=== PATIENT | female | born 1955 | race African-American/Black ===

== ENCOUNTER 2020-01-02 09:01 | Outpatient (REF) | payer OTHER, SELFPAY ==
[2020-01-02 11:55] LABS: Albumin Level 4.3 g/dL (3.5-5.0)
[2020-01-02 12:16] LABS: Vitamin D 25-OH Total 15.6 ng/mL (>30)
[2020-01-03 17:52] LABS: Calcium (PTHI) 11.2 mg/dL (8.6-10.4); PTHI 98 pg/mL (14-64)
[2020-01-06 00:27] LABS: VITAMIN D (1,25 OH) D3 55 pg/mL; Vit D (1,25-Dihydroxy) Total 67 pg/mL (18-72); Vitamin D (1,25 OH) D2 12 pg/mL
== END 2020-01-02 09:02 | disposition home or self-care (01) ==
LOC: HO.HMGCLDS 09:01
PROVIDERS: PCP Internal Medicine; Visit Provider Internal Medicine Endocrinology, Diabetes & Metabolism
DX: E21.3 Hyperparathyroidism, unspecified (principal)
CPT/HCPCS: 82040; 82306; 82310; 82652; 83970

== ENCOUNTER → 2020-01-11 08:18 | Outpatient (BNVA) | payer OTHER, SELFPAY | PROVIDERS: PCP Internal Medicine; Referring Provider Internal Medicine; Visit Provider Internal Medicine Endocrinology, Diabetes & Metabolism | DX: Z13.89 Encounter for screening for other disorder (principal) | CPT/HCPCS: 99212 ==

== ENCOUNTER 2020-01-19 12:47 | Outpatient (REF) | payer OTHER, SELFPAY ==
--- NOTE | 2020-01-19 12:55 | MM_ITS ---
EXAMINATION: BONE DENSITOMETRY CLINICAL INDICATION: Hyperparathyroidism, unspecified. COMPARISON: None (current study represents initial baseline exam). TECHNIQUE: Using a [employer] DXA System (software version: 13.1) manufactured by [employer], dual-energy x-ray absorptiometry was performed of the lumbar spine, left hip, and left forearm radius 33%. The images are of good technical quality. Summary results are attached. FINDINGS: AP SPINE L1-L4: BMD 0.996 g/cm2, Z-score -1.6, T-score -1.5, osteopenia. LEFT FEMUR, NECK: BMD 0.963 g/cm2, Z-score -0.6, T-score -0.5, normal. LEFT FEMUR, TOTAL: BMD 1.041 g/cm2, Z-score -0.2, T-score 0.3, normal. LEFT FOREARM RADIUS 33%: BMD 0.946 g/cm2, Z-score 1.2, T-score 0.8, normal. IDENTIFIED RISK FACTORS: Hyperparathyroidism, thiazide, menopause, hysterectomy, bilateral oophorectomy. HISTORY OF FRACTURE: None listed. MEDICATIONS: Multivitamin. MM/XR DEXA appendicular skeleton IMPRESSION: 1. DIAGNOSIS: Osteopenia based on the lowest T-score value of -1.5 in the lumbar spine applying World Health Organization criteria. 2. 10-YEAR FRACTURE RISK PREDICTION, FRAX: Major osteoporotic fracture (clinical spine, forearm, hip or shoulder) 3.0%. Hip fracture 0.1%. 3. Treatment Recommendations: NOF guidelines recommend consideration for treatment in postmenopausal women and men age 50 and older presenting with the following: -A hip or vertebral (clinical or morphometric) fracture. -T-score less than or equal to -2.5 at the femoral neck or spine after appropriate evaluation to exclude secondary causes. -Low bone mass at the hip or spine and a 10-year fracture probability by FRAX of greater than or equal to 3% for hip fracture or greater than or equal to 20% for major osteoporotic fracture based on the [place] adapted WHO algorithm. 4. Other Recommendations: All treatment decisions require clinical judgment and consideration of individual patient factors, including patient preferences, comorbidities, previous drug use, risk factors not captured in the FRAX model (e.g. frailty, falls, vitamin D deficiency, increased bone turnover, interval significant decline in bone density) and possible under or overestimation of fracture risk by FRAX. Additional medical evaluation for secondary cause of low bone mineral density may be appropriate. FUTURE SCAN RECOMMENDATION: People with diagnosed cases of osteoporosis or at high risk for fracture should have regular bone mineral density tests. For patients eligible for Medicare, routine testing is allowed once every 2 years. The testing frequency can be increased to one year for patients who have rapidly progressing disease, those who are receiving or discontinuing medical therapy to restore bone mass, or have additional risk factors.
== END 2020-01-19 12:48 | disposition home or self-care (01) ==
LOC: HO.MAMMO 12:47
PROVIDERS: PCP Internal Medicine; Visit Provider Internal Medicine Endocrinology, Diabetes & Metabolism
DX: E21.3 Hyperparathyroidism, unspecified (principal); Z79.899 Other long term (current) drug therapy; Z78.0 Asymptomatic menopausal state; Z90.722 Acquired absence of ovaries, bilateral; Z90.710 Acquired absence of both cervix and uterus
CPT/HCPCS: 77081

== ENCOUNTER → 2020-05-21 09:04 | Outpatient (BNVA) | payer OTHER, SELFPAY | PROVIDERS: PCP Internal Medicine; Visit Provider Internal Medicine Endocrinology, Diabetes & Metabolism ==

== ENCOUNTER 2020-05-29 08:55 | Outpatient (REF) | payer OTHER, SELFPAY ==
[2020-05-29 11:41] LABS: Alanine Aminotransferase 18 U/L (0-31); Albumin Level 4.2 g/dL (3.5-5.0); Alkaline Phosphatase 140 U/L (39-117); Anion Gap 13 (12-20); Aspartate Amino Transferase 15 U/L (5-31); Bilirubin Total 0.9 mg/dL (0.0-1.0); Blood Urea Nitrogen 14 mg/dL (9-16); Calcium 10.1 mg/dL (8.4-10.2); Carbon Dioxide 25 mmol/L (22-29); Chloride 105 mmol/L (96-108); Estimated Glomerular Filt Rate > 60; Glucose Fasting 99 mg/dL (60-99); Magnesium 2.2 mg/dL (1.6-2.6); Phosphorus 3.5 mg/dL (2.7-4.5); Potassium 4.2 mmol/L (3.3-5.1); Sodium 139 mmol/L (135-145); Total Protein 6.7 g/dL (6.5-8.0)
[2020-05-29 12:03] LABS: Vitamin D 25-OH Total 10.9 ng/mL (>30)
[2020-05-30 13:02] LABS: Calcium (PTHI) 10.4 mg/dL (8.6-10.4); PTHI 66 pg/mL (14-64)
[2020-05-30 15:06] LABS: Calcium, Ionized 5.7 mg/dL (4.8-5.6)
[2020-06-01 11:27] LABS: Alkaline Phosphatase Bone 25.1 mcg/L (5.6-29.0)
== END 2020-05-29 08:56 | disposition home or self-care (01) ==
LOC: HO.HMGCLDS 08:55
PROVIDERS: PCP Internal Medicine; Visit Provider Internal Medicine Endocrinology, Diabetes & Metabolism
DX: E21.3 Hyperparathyroidism, unspecified (principal)
CPT/HCPCS: 36415; 80053; 82306; 82330; 83735; 83970; 84075; 84100

== ENCOUNTER 2020-06-10 09:03 | Outpatient (REF) | payer OTHER, SELFPAY ==
--- NOTE | ~2020-06-10 | MM_ITS ---
EXAMINATION: MM DIAGNOSTIC DIGITAL BREAST TOMOSYNTHESIS, LEFT CLINICAL INFORMATION: Probable benign calcifications inner left breast for short interval six-month follow-up The lifetime risk of breast cancer based on the Tyrer-Cuzick Model is 6%. COMPARISON: Mammography: 11/03/2019 (diagnostic, BI-RADS 3); outside exam 08/24/2015 ([facility]). TECHNIQUE: Digital breast tomosynthesis is performed in both the craniocaudal and mediolateral oblique views along with computer-aided detection (CAD). Synthesized 2D images are generated from the tomosynthesis. FINDINGS: There are scattered areas of fibroglandular density (ACR BI-RADS breast composition Category b). Parenchymal pattern is similar to prior exams. There is no developing density or interval mass or architectural abnormality. Calcifications for follow-up left breast medial aspect of benign-appearing and stable from prior diagnostic study. There are also scattered regional calcifications central and upper outer left breast again seen. Results are provided to the patient at time of visit by the technologist. MM/MM tomosynthesis diagnostic LT IMPRESSION: No significant changes from prior diagnostic exam. ASSESSMENT: BI-RADS 3: Probably Benign RECOMMENDATION: Diagnostic mammography at time of annual bilateral mammography, due in 6 months. This patient's information was entered into a reminder system with a target due date for their next mammogram.
== END 2020-06-10 09:04 | disposition home or self-care (01) ==
LOC: HO.MAMMO 09:03
PROVIDERS: PCP Internal Medicine; Visit Provider Internal Medicine
DX: R92.1 Mammographic calcification found on diagnostic imaging of breast (principal)
CPT/HCPCS: 77061; 77065

== ENCOUNTER 2020-10-23 11:08 | Outpatient (REF) | payer OTHER, SELFPAY ==
[2020-10-23 13:48] LABS: MANUAL DIFF FLAG NO
[2020-10-23 13:58] LABS: Basophils Percent Auto 0.3 % (0-2); Eosinophils Absolute Auto 0.1 X10*3/uL (0.0-0.4); Eosinophils Percent Auto 1.6 % (0-4); Hematocrit 38.9 % (37-47); Imm Gran Abs Auto 0.03 X10*3/uL (0.00-0.03); Imm Gran Pct Auto 0.5 % (0.0-0.4); Lymphocytes Absolute Auto 2.6 X10*3/uL (1.2-4.9); Lymphocytes Percent Auto 41.4 % (20-40); Mean Corpuscular HGB Conc 33.4 g/dl (31.0-35.0); Mean Corpuscular Hemoglobin 31.8 pg (27.0-33.0); Mean Corpuscular Volume 95.1 fL (80-98); Mean Platelet Volume 9.8 fL (9.4-12.3); Monocytes Absolute Auto 0.6 X10*3/uL (0.1-1.2); Monocytes Percent Auto 8.9 % (2-11); Neutrophils Absolute Auto 2.9 X10*3/uL (2.0-8.3); Neutrophils Percent Auto 47.3 % (45-73); Platelet Count 279 X10*3/uL (160-400); Red Blood Count 4.09 X10*6/uL (4.20-5.50); Red Cell Distribution Width 13.3 % (11.0-16.0); White Blood Count 6.2 X10*3/uL (4.8-10.8)
[2020-10-23 14:52] LABS: Vitamin D 25-OH Total 17.8 ng/mL (>30)
[2020-10-23 14:54] LABS: Alanine Aminotransferase 29 U/L (0-31); Albumin Level 4.2 g/dL (3.5-5.0); Alkaline Phosphatase 130 U/L (39-117); Anion Gap 14 (12-20); Aspartate Amino Transferase 20 U/L (5-31); Blood Urea Nitrogen 14 mg/dL (9-16); Calcium 10.7 mg/dL (8.4-10.2); Carbon Dioxide 22 mmol/L (22-29); Chloride 109 mmol/L (96-108); Estimated Glomerular Filt Rate > 60; Glucose Fasting 110 mg/dL (60-99); Magnesium 2.1 mg/dL (1.6-2.6); Phosphorus 2.8 mg/dL (2.7-4.5); Potassium 4.1 mmol/L (3.3-5.1); Sodium 141 mmol/L (135-145)
[2020-10-24 07:51] LABS: LDL Cholesterol Direct 153 mg/dL (<100)
[2020-10-25 14:21] LABS: Calcium (PTHI) 10.3 mg/dL (8.6-10.4); PTHI 85 pg/mL (14-64)
[2020-10-26 10:22] LABS: Alkaline Phosphatase Bone 23.8 mcg/L (5.6-29.0)
== END 2020-10-23 11:09 | disposition home or self-care (01) ==
LOC: HO.HMGCLDS 11:08
PROVIDERS: Absent Provider Internal Medicine Endocrinology, Diabetes & Metabolism; PCP Internal Medicine; Visit Provider Internal Medicine
DX: Z00.01 Encounter for general adult medical examination with abnormal findings (principal); R10.13 Epigastric pain; F31.9 Bipolar disorder, unspecified; E66.09 Other obesity due to excess calories; E21.3 Hyperparathyroidism, unspecified; G47.10 Hypersomnia, unspecified
CPT/HCPCS: 36415; 80053; 82306; 83721; 83735; 83970; 84075; 84100; 84443; 85025

== ENCOUNTER 2020-12-26 12:51 | Outpatient (REF) | payer OTHER, SELFPAY ==
--- NOTE | ~2020-12-26 | MM_ITS ---
EXAMINATION: MM DIAGNOSTIC DIGITAL BREAST TOMOSYNTHESIS, BILATERAL CLINICAL INFORMATION: Due for yearly. Follow-up grouped calcifications in the left breast. The lifetime risk of breast cancer based on the Tyrer-Cuzick Model is 6%. COMPARISON: Mammography: 06/10/2020, 11/03/2019 (BI-RADS 3); outside mammography 08/24/2015, 08/11/2014 ([place]). TECHNIQUE: Digital breast tomosynthesis is performed in both the craniocaudal and mediolateral oblique views along with computer-aided detection (CAD). Synthesized 2D images are generated from the tomosynthesis. Additional magnification left CC x2 and magnification left LM x2 views are provided. FINDINGS: There are scattered areas of fibroglandular density (ACR BI-RADS breast composition Category b). Parenchymal pattern is similar to prior studies and borders on heterogeneously dense. There is no developing density or interval mass or architectural abnormality. Numerous bilateral round and some rim calcifications are again seen. The axilla and skin contours are unremarkable. The grouped mildly coarse calcifications medial left breast are similar to prior diagnostic exams and will be reassessed again at annual bilateral mammography, due in 12 months. Results are provided to the patient at time of visit by the technologist. MM/MM tomosynthesis diagnostic BI IMPRESSION: No significant changes from prior diagnostic exams. ASSESSMENT: BI-RADS 3: Probably Benign RECOMMENDATION: Diagnostic mammography at time of next annual exam, due in 12 months. This patient's information was entered into a reminder system with a target due date for their next mammogram.
== END 2020-12-26 12:52 | disposition home or self-care (01) ==
LOC: HO.MAMMO 12:51
PROVIDERS: Visit Provider Internal Medicine
DX: R92.1 Mammographic calcification found on diagnostic imaging of breast (principal)
CPT/HCPCS: 77062; 77066

== ENCOUNTER 2021-03-25 09:57 | Outpatient (REF) | payer OTHER, SELFPAY ==
--- NOTE | ~2021-03-25 | XR_ITS ---
EXAMINATION: XR CHEST CLINICAL INFORMATION: Hemoptysis. COMPARISON: None TECHNIQUE: 2 views of the chest were obtained. FINDINGS: No significant abnormality is noted involving the heart, lungs, mediastinum, bony thorax or soft tissues. XR/XR chest 2V IMPRESSION: Unremarkable chest examination.
== END 2021-03-25 09:58 | disposition home or self-care (01) ==
LOC: HO.HMGCX 09:57
PROVIDERS: PCP Internal Medicine; Visit Provider Internal Medicine
DX: R04.2 Hemoptysis (principal)
CPT/HCPCS: 71046

== ENCOUNTER → 2021-06-04 12:51 | Outpatient (BNVA) | payer OTHER, SELFPAY | PROVIDERS: PCP Internal Medicine; Visit Provider Internal Medicine Endocrinology, Diabetes & Metabolism | DX: E21.3 Hyperparathyroidism, unspecified (principal); E04.2 Nontoxic multinodular goiter | CPT/HCPCS: 99212 ==

== ENCOUNTER 2021-07-30 09:54 | Outpatient (REF) | payer OTHER, SELFPAY ==
--- NOTE | ~2021-07-30 | US_ITS ---
EXAMINATION: US RETROPERITONEAL LIMITED (RENAL ONLY) CLINICAL INFORMATION: Hyperparathyroidism. COMPARISON: None TECHNIQUE: Real-time imaging of the kidneys. FINDINGS: RIGHT KIDNEY: 10.9 x 5.6 x 5.9 cm (SAG x AP x TRV). The kidney is normal in size, contour, and echogenicity. Renal cortical thickness is normal. No calculi or focal parenchymal lesions. No hydronephrosis. LEFT KIDNEY: 10.6 x 5.3 x 5.5 cm (SAG x AP x TRV). The kidney is normal in size, contour, and echogenicity. Renal cortical thickness is normal. No renal calculi or hydronephrosis. There is simple cyst in the upper pole of left kidney measured 1.0 x 0.8 x 1.1 cm US/US renal BI IMPRESSION: Simple cyst in the upper pole of left kidney.
--- NOTE | ~2021-07-30 | US_ITS ---
EXAMINATION: US THYROID CLINICAL INFORMATION: Nontoxic multinodular goiter. COMPARISON: US thyroid 08/17/2019. US-guided thyroid biopsy 09/28/2019. TECHNIQUE: Linear transducer grayscale and color Doppler examination with attention to the region of the thyroid. FINDINGS: SIZE: Measurements of the thyroid lobes and nodules are given in sagittal, anteroposterior and transverse dimensions respectively. Right Thyroid Lobe: 5.1 x 2.0 x 2.2 cm, volume 11.9 mL. Previously 4.2 x 2.0 x 2.0 cm, volume 8.7 mL. Parenchyma: The gland echotexture is homogeneous. Thyroid vascularity is normal. Left Thyroid Lobe: 4.4 x 2.0 x 1.6 cm, volume 7.6 mL. Previously 3.7 x 1.7 x 1.5 cm, volume 4.9 mL. Parenchyma: The gland echotexture is homogeneous. Thyroid vascularity is normal. Isthmus: 0.6 cm in maximum AP dimension. Previously 0.5 cm. Estimated total number of nodules greater than or equal to 1 cm: 1. Hand Hardener nodules are described as follows: 1. Location: Right mid. Size: 0.6 x 0.5 x 0.3 cm, volume 0.1 mL. Previously: 0.4 x 0.3 x 0.3 cm, volume 0.02 mL. Nodule characteristics: Composition: Cystic(0). ACR TI-RADS total points: 0 ACR TI-RADS category: 1 Significant change in size (>/= 20% in 2 dimensions and minimal increase of 2 mm or 50% or greater increase in volume): None Change in features: None Change in ACR TI-RADS risk category: Not applicable 2. Location: Right mid. Size: 1.1 x 1.5 x 0.9 cm, volume 0.8 mL. Previously: 1.3 x 1.1 x 1.3 cm, volume 1.0 mL. Nodule characteristics: Composition: Solid/almost completely solid (2). Echogenicity: Hypoechoic (2). Shape: Not taller than wide (0). Margins: Smooth (0). Echogenic Foci: Macrocalcifications (1). ACR TI-RADS total points: 5 ACR TI-RADS category: 4 Significant change in size (>/= 20% in 2 dimensions and minimal increase of 2 mm or 50% or greater increase in volume): None Change in features: Yes Change in ACR TI-RADS risk category: Yes 3. Location: Isthmus. Size: 0.8 x 0.6 x 0.3 cm, volume 0.1 mL. Previously: 0.5 x 0.3 x 0.5 cm, volume 0.04 mL. Nodule characteristics: Composition: Solid (2). Echogenicity: Hypoechoic (2). Shape: Not taller than wide (0). Margins: Smooth (0). Echogenic Foci: None (0). ACR TI-RADS total points: 4 ACR TI-RADS category: 4 Significant change in size (>/= 20% in 2 dimensions and minimal increase of 2 mm or 50% or greater increase in volume): Yes Change in features: None Change in ACR TI-RADS risk category: Not applicable 4. Location: Left mid. Size: 0.5 x 0.6 x 0.3 cm, volume 0.1 mL. Previously: 0.3 x 0.3 x 0.4 cm, volume 0.02 mL. Nodule characteristics: Composition: Solid/almost completely solid (2). Echogenicity: Isoechoic (1). Shape: Not taller than wide (0). Margins: Smooth (0). Echogenic Foci: None (0). ACR TI-RADS total points: 3 ACR TI-RADS category: 3 Significant change in size (>/= 20% in 2 dimensions and minimal increase of 2 mm or 50% or greater increase in volume): Yes Change in features: None Change in ACR TI-RADS risk category: Not applicable 5. Location: Left inferior. Size: 0.6 x 0.5 x 0.3 cm, volume 0.1 mL. Previously: Not seen on the previous study. Nodule characteristics: Composition: Solid (2). Echogenicity: Hypoechoic (2). Shape: Not taller than wide (0). Margins: Smooth (0). Echogenic Foci: None (0). ACR TI-RADS total points: 4 ACR TI-RADS category: 4 NODES: No lymphadenopathy is seen in the tissue surrounding the thyroid gland. US/US thyroid IMPRESSION: Multinodular goiter the largest hypoechoic nodule on the right revealed new microcalcifications. ACR TI-RADS RECOMMENDATION REFERENCE: Ultrasound-guided fine-needle aspiration, followup ultrasound, no further follow up. * TR1 (0 point) and TR 2 (2 points): No FNA or follow up * TR3 (3 points): FNA if more than or equal to 2.5 cm in maximum dimension, followup ultrasound in 1, 3 and 5 years if 1.5 to 2.4 cm in maximum dimension. * TR4 (4-6 points): FNA if more than or equal to 1.5 cm in maximum dimension, followup ultrasound in 1, 2, 3 and 5 years if 1 to 1.4 cm in maximum dimension. * TR5 (more than or equal to 7 points): FNA if more than or equal to 1 cm in maximum dimension, followup ultrasound every year for 5 years if 0.5 to 0.9 cm in maximum dimension. * TR3, TR4 or TR5 nodules that are below the size threshold for follow up receive no follow up.
== END 2021-07-30 09:55 | disposition home or self-care (01) ==
LOC: HO.US 09:54
PROVIDERS: Visit Provider Internal Medicine Endocrinology, Diabetes & Metabolism
DX: E04.2 Nontoxic multinodular goiter (principal); E21.3 Hyperparathyroidism, unspecified
CPT/HCPCS: 76536; 76775

== ENCOUNTER 2021-11-05 10:26 | Outpatient (REF) | payer OTHER, SELFPAY ==
[2021-11-05 14:04] LABS: MANUAL DIFF FLAG NO
[2021-11-05 14:23] LABS: Basophils Percent Auto 0.5 % (0-2); Eosinophils Absolute Auto 0.2 X10*3/uL (0.0-0.4); Eosinophils Percent Auto 2.6 % (0-4); Hematocrit 39.8 % (37.0-47.0); Hemoglobin 13.3 g/dl (12.0-16.0); Imm Gran Abs Auto 0.02 X10*3/uL (0.00-0.03); Imm Gran Pct Auto 0.3 % (0.0-0.4); Lymphocytes Absolute Auto 2.8 X10*3/uL (1.2-4.9); Lymphocytes Percent Auto 46.9 % (20-40); Mean Corpuscular HGB Conc 33.4 g/dl (31.0-35.0); Mean Corpuscular Hemoglobin 31.5 pg (27.0-33.0); Mean Corpuscular Volume 94.3 fL (80.0-98.0); Mean Platelet Volume 10.2 fL (9.4-12.3); Monocytes Absolute Auto 0.4 X10*3/uL (0.1-1.2); Monocytes Percent Auto 7.5 % (2-11); Neutrophils Absolute Auto 2.5 x10*3/uL (2.0-8.3); Neutrophils Percent Auto 42.2 % (45-73); Platelet Count 257 X10*3/uL (160-400); Red Blood Count 4.22 X10*6/uL (4.20-5.50); Red Cell Distribution Width 13.4 % (11.0-16.0); White Blood Count 5.9 X10*3/uL (4.8-10.8)
[2021-11-05 14:26] LABS: Estimated Average Glucose 120 mg/dL; Hemoglobin A1c % 5.8 %
[2021-11-05 14:36] LABS: Alanine Aminotransferase 43 U/L (0-31); Alkaline Phosphatase 110 U/L (39-117); Anion Gap 12 (12-20); Aspartate Amino Transferase 36 U/L (5-31); Bilirubin Total 1.4 mg/dL (0.0-1.0); Blood Urea Nitrogen 12 mg/dL (9-16); Calcium 10.2 mg/dL (8.4-10.2); Carbon Dioxide 25 mmol/L (22-29); Chloride 108 mmol/L (96-108); Cholesterol 202 mg/dL; Estimated Glomerular Filt Rate 51; Glucose Fasting 115 mg/dL (60-99); HDL Cholesterol 43 mg/dL; LDL Cholesterol Calculated 138 mg/dl; Potassium 4.2 mmol/L (3.3-5.1); Sodium 141 mmol/L (135-145); Total Protein 6.7 g/dL (6.5-8.0); Triglycerides 105 mg/dL
[2021-11-05 14:51] LABS: TSH reflex Free T4 1.59 uIU/mL (0.32-4.0)
== END 2021-11-05 10:27 | disposition home or self-care (01) ==
LOC: HO.HMGCLDS 10:26
PROVIDERS: PCP Internal Medicine; Visit Provider Internal Medicine
DX: Z00.01 Encounter for general adult medical examination with abnormal findings (principal); E21.3 Hyperparathyroidism, unspecified; E66.09 Other obesity due to excess calories; F31.9 Bipolar disorder, unspecified; F99 Mental disorder, not otherwise specified; G47.10 Hypersomnia, unspecified; K21.9 Gastro-esophageal reflux disease without esophagitis; E04.2 Nontoxic multinodular goiter
CPT/HCPCS: 36415; 80053; 80061; 83036; 84443; 85025

== ENCOUNTER → 2021-11-14 11:21 | Outpatient (BNVA) | payer OTHER, SELFPAY | PROVIDERS: PCP Internal Medicine; Visit Provider Nurse Practitioner Family | DX: G47.10 Hypersomnia, unspecified (principal); R40.0 Somnolence; R06.83 Snoring; E66.9 Obesity, unspecified; Z68.38 Body mass index [BMI] 38.0-38.9, adult | CPT/HCPCS: 99202 ==

== ENCOUNTER → 2021-12-15 09:59 | Outpatient (REF) | payer OTHER, SELFPAY | LOC: HO.SL 09:59 | PROVIDERS: Visit Provider Nurse Practitioner Family | DX: Z13.89 Encounter for screening for other disorder (principal) ==

== ENCOUNTER 2022-01-01 14:25 | Outpatient (REF) | payer OTHER, SELFPAY ==
--- NOTE | ~2022-01-01 | MM_ITS ---
EXAMINATION: MM DIAGNOSTIC DIGITAL BREAST TOMOSYNTHESIS, BILATERAL CLINICAL INFORMATION: Due for yearly. Also follow-up probable benign calcifications posterior medial left breast. No known family history breast cancer. COMPARISON: Mammography: 12/26/2020, 06/10/2020, 11/03/2019 (diagnostic, BI-RADS 3), bilateral breast ultrasound 11/03/2019. TECHNIQUE: Digital breast tomosynthesis is performed in both the craniocaudal and mediolateral oblique views along with computer-aided detection (CAD). Synthesized 2D images are generated from the tomosynthesis. Additional views are obtained: Right MLO, magnification left CC x2, left magnification LM. FINDINGS: There are scattered areas of fibroglandular density (ACR BI-RADS breast composition Category b). Parenchymal pattern is similar to prior studies and there is no developing density or architectural abnormality. There are no abnormal calcifications from prior studies. Again, there are scattered bilateral punctate round calcifications in each breast. The grouped calcifications posterior medial left breast are stable to decreased from prior diagnostic exams and now considered to be benign. The axilla and skin contours are unremarkable. Results are provided to the patient at time of visit by the technologist. MM/MM tomosynthesis diagnostic BI IMPRESSION: -Calcifications left breast for follow-up are stable to decreased and now considered to be benign. -No mammographic evidence of malignancy. ASSESSMENT: BI-RADS 2: Benign RECOMMENDATION: Routine annual mammography screening. This patient's information was entered into a reminder system with a target due date for their next mammogram.
== END 2022-01-01 14:26 | disposition home or self-care (01) ==
LOC: HO.MAMMO 14:25
PROVIDERS: PCP Internal Medicine; Visit Provider Internal Medicine
DX: R92.1 Mammographic calcification found on diagnostic imaging of breast (principal)
CPT/HCPCS: 77062; 77066

== ENCOUNTER → 2022-01-15 10:52 | Outpatient (REF) | payer OTHER, SELFPAY | LOC: HO.SL 10:52 | PROVIDERS: PCP Internal Medicine; Visit Provider Nurse Practitioner Family | DX: G47.33 Obstructive sleep apnea (adult) (pediatric) (principal); E66.9 Obesity, unspecified; G47.10 Hypersomnia, unspecified; R06.83 Snoring; R40.0 Somnolence | CPT/HCPCS: 95806 ==

== ENCOUNTER 2022-01-21 10:00 | Outpatient (REF) | payer OTHER, SELFPAY ==
--- NOTE | ~2022-01-21 | MM_ITS ---
EXAMINATION: BONE DENSITOMETRY CLINICAL INDICATION: Hyperparathyroidism. COMPARISON: Baseline BD dated 01/19/2020. TECHNIQUE: Using a [employer] DXA System (software version: 13.1) manufactured by [employer], dual-energy x-ray absorptiometry was performed of the lumbar spine, left hip, and left forearm radius 33%. The images are of good technical quality. Summary results are attached. FINDINGS: AP SPINE L1-L4: Current: BMD 0.991 g/cm2, Z-score -1.6, T-score -1.6, osteopenia, 0.5% decrease from baseline (<5% change is not significant). Baseline: BMD 0.996 g/cm2. LEFT FEMUR, NECK: Current: BMD 0.974 g/cm2, Z-score -0.5, T-score -0.5, normal. Baseline: BMD 0.963 g/cm2. LEFT FEMUR, TOTAL: Current: BMD 1.053 g/cm2, Z-score -0.1, T-score 0.4, normal, 1.2% increase from baseline (<5% change is not significant). Baseline: BMD 1.041 g/cm2. LEFT FOREARM RADIUS 33%: BMD 0.962 g/cm2, Z-score 1.6, T-score 1.0, normal, 1.7% increase from baseline (<5% change is not significant). Baseline: BMD 0.946 g/cm2. IDENTIFIED RISK FACTORS: Menopause, hysterectomy, hyperparathyroid, bilateral oophorectomy, thiazide. HISTORY OF FRACTURE: None listed. MEDICATIONS: Multivitamin, vitamin D. MM/XR DEXA appendicular skeleton IMPRESSION: 1. DIAGNOSIS: Osteopenia based on the lowest T-score value of -1.6 in the lumbar spine applying World Health Organization criteria. 2. 10-YEAR FRACTURE RISK PREDICTION, FRAX: Major osteoporotic fracture (clinical spine, forearm, hip or shoulder) 3.0%. Hip fracture 0.1%. 3. Treatment Recommendations: NOF guidelines recommend consideration for treatment in postmenopausal women and men age 50 and older presenting with the following: -A hip or vertebral (clinical or morphometric) fracture. -T-score less than or equal to -2.5 at the femoral neck or spine after appropriate evaluation to exclude secondary causes. -Low bone mass at the hip or spine and a 10-year fracture probability by FRAX of greater than or equal to 3% for hip fracture or greater than or equal to 20% for major osteoporotic fracture based on the [place] adapted WHO algorithm. 4. Other Recommendations: All treatment decisions require clinical judgment and consideration of individual patient factors, including patient preferences, comorbidities, previous drug use, risk factors not captured in the FRAX model (e.g. frailty, falls, vitamin D deficiency, increased bone turnover, interval significant decline in bone density) and possible under or overestimation of fracture risk by FRAX. Additional medical evaluation for secondary cause of low bone mineral density may be appropriate. FUTURE SCAN RECOMMENDATION: People with diagnosed cases of osteoporosis or at high risk for fracture should have regular bone mineral density tests. For patients eligible for Medicare, routine testing is allowed once every 2 years. The testing frequency can be increased to one year for patients who have rapidly progressing disease, those who are receiving or discontinuing medical therapy to restore bone mass, or have additional risk factors.
== END 2022-01-21 10:01 | disposition home or self-care (01) ==
LOC: HO.MAMMO 10:00
PROVIDERS: Visit Provider Internal Medicine
DX: Z13.820 Encounter for screening for osteoporosis (principal); M85.80 Other specified disorders of bone density and structure, unspecified site; E21.3 Hyperparathyroidism, unspecified; Z78.0 Asymptomatic menopausal state
CPT/HCPCS: 77080; 77081

== ENCOUNTER → 2022-02-12 09:34 | Outpatient (BNVA) | payer OTHER, SELFPAY | PROVIDERS: PCP Internal Medicine; Visit Provider Nurse Practitioner Family | DX: R40.0 Somnolence (principal); E66.09 Other obesity due to excess calories; G47.33 Obstructive sleep apnea (adult) (pediatric) | CPT/HCPCS: 99212 ==

== ENCOUNTER 2022-03-04 12:33 | Outpatient (REF) | payer OTHER, SELFPAY ==
[2022-03-04 14:56] LABS: Vitamin D 25-OH Total 21.9 ng/mL (>30)
[2022-03-05 14:13] LABS: Calcium (PTHI) 10.9 mg/dL (8.6-10.4); PTHI 84 pg/mL (16-77)
== END 2022-03-04 12:34 | disposition home or self-care (01) ==
LOC: HO.10HDL 12:33
PROVIDERS: Visit Provider Internal Medicine Endocrinology, Diabetes & Metabolism
DX: E21.3 Hyperparathyroidism, unspecified (principal); E04.2 Nontoxic multinodular goiter
CPT/HCPCS: 36415; 82306; 83970; 99212

== ENCOUNTER → 2022-04-02 09:12 | Outpatient (BNVA) | payer OTHER, SELFPAY | PROVIDERS: PCP Internal Medicine; Visit Provider Nurse Practitioner Family | DX: G47.33 Obstructive sleep apnea (adult) (pediatric) (principal) | CPT/HCPCS: 99212 ==

== ENCOUNTER 2022-05-07 09:35 | Outpatient (REF) | payer OTHER, SELFPAY ==
--- NOTE | 2022-05-07 09:57 | P.BOP_ITS ---
Brief Operative Note Date of Service: 05/07/22 Pre-op diagnosis: Multinodular Thyroid Procedure: EXAMINATION: US THYROID CLINICAL INFORMATION: Multinodular Thyroid COMPARISON: Prior TECHNIQUE: Linear transducer johnson-scale and color Doppler examination with attention to the region of the thyroid. FINDINGS: SIZE: Measurements of the thyroid lobes and nodules are given in sagittal, anteroposterior and transverse dimensions respectively. Right Thyroid Lobe: 5.3 x 2.2 x 2.1 cm, volume 12.8 mL. Parenchyma: The gland echotexture is heterogenous. Thyroid vascularity is normal. Left Thyroid Lobe: 4.1 x 1.7 x 1.7 cm, volume 6.2 mL. Parenchyma: The gland echotexture is heterogenous. Thyroid vascularity is normal. Isthmus: 0.4 cm in maximum AP dimension. Bilaterally there are scattered anechoic cystic appearing nodules. There is a small mixed cystic nodule measuring less than 0.5 cm in the L mid pole laterally. What was read as a RMP 1.3 cm nodule is a pseudnodule, not a true nodule. NODES: No lymph nodes were assessed during today's exam. Surgeon: Caterina Otto, DO Was an Operations Manager Assistant used for this Procedure?: No Estimated blood loss (mL): 0
== END 2022-05-07 09:36 | disposition home or self-care (01) ==
LOC: HO.US 09:35
PROVIDERS: PCP Internal Medicine; Visit Provider Internal Medicine Endocrinology, Diabetes & Metabolism
DX: E04.2 Nontoxic multinodular goiter (principal)
CPT/HCPCS: 76536

== ENCOUNTER → 2022-07-31 08:47 | Outpatient (BNVA) | payer OTHER, SELFPAY | PROVIDERS: PCP Internal Medicine; Visit Provider Nurse Practitioner Family | DX: G47.33 Obstructive sleep apnea (adult) (pediatric) (principal) | CPT/HCPCS: 99212 ==

== ENCOUNTER 2022-11-04 09:55 | Outpatient (AMB) | payer OTHER, SELFPAY ==
[2022-11-04 10:11] VITALS: BP 128/82; PULSE 77; O2SAT 98; BMI 38.2
--- NOTE | 2022-11-04 10:11 | A.OFFPC_ITS ---
Vital Signs 11/04/22 10:11 Height 5 ft 5 in Weight 229 lb 6 oz BMI 38.2 BP 128/82 Blood Pressure Location Rt brachial Position Sitting Pulse 77 Pulse Source Pulse Oximeter Pulse Oximetry (%) 98 Oxygen Delivery Method Room Air Intake Visit Reasons: annual PE Allergies citalopram Allergy (Unknown, Verified 11/04/22 10:12) Unknown ibuprofen Allergy (Unknown, Verified 11/04/22 10:12) unknown loratadine Allergy (Unknown, Verified 11/04/22 10:12) unknown Medication List - Last Reconciled 11/04/22 by Jose Manuel Sarmiento MD aripiprazole 20 mg PO DAILY [Blood pressure monitor large cuff] bupropion HCl 200 mg PO QAM hydroxyzine HCl 25 mg PO TID PRN Tobacco use date assessed: 11/04/22 Fall risk assessment: No Falls in past year Last assessed Fall Risk: 11/04/22 Dental Screening Dental Screen Date: 11/04/22 Did you have a dental visit in the last 12 months?: Yes Did you have a dental problem in the last 6 months where you did not have access to dental care?: No Was dental information given to patient?: No HPI annual PE HPI Details Patient is 67-year-old female came in today for physical examination. Mammogram appointment in December Colonoscopy appointment is coming this month on She also have a endocrinology appointment coming up this month. For the management of hyperparathyroidism Complaining of irrigated come for the past 1 month with postnasal drip Patient was advised to start taking long-acting antihistamine [id number] and see if that improves the symptoms. Patient have a psychiatric illness which is being managed through Psychiatry. History of hysterectomy secondary to fibroids Patient have history of appendix cancer and goes for follow-up every 6 months with Oncology. BMI is elevated patient has difficulty losing weight She has appointment with the Neurology coming up in January to be evaluated for sleep apnea. Follow-up next year for physical examination Labs to be done today FORMERLY [facility], [facility] Medical History Bipolar disorder Hyperparathyroidism Non-toxic multinodular goiter Obesity Vitamin D deficiency Surgical History History of section History of colectomy History of hysterectomy Hx of cholecystectomy Family History Mother HTN (hypertension) Diabetes mellitus Cancer Family/Other HTN (hypertension) Social History Household Members: Family Household Members Other:: daughter, son Housing: House Alcohol intake: never Patient Tobacco Use Status: Never used Tobacco e-Cigarette/Vaping Use: Never Used Second Hand Smoke Exposure: No service: No Current occupational status: disabled Cognitive needs: No Hearing needs: No Vision needs: Yes Questionnaire PHQ-9 Over the last 2 weeks, how often have you been bothered by any of the following problems? 1. Little interest or pleasure in doing things: not at all 2. Feeling down, depressed, or hopeless: not at all 3. Trouble falling or staying asleep, or sleeping too much: not at all 4. Feeling tired or having little energy: not at all 5. Poor appetite or overeating: not at all 6. Feeling bad about yourself - or that you are a failure or have let yourself or your family down: not at all 7. Trouble concentrating on things, such as reading the newspaper or watching television: not at all 8. Moving or speaking so slowly that other people could have noticed. Or the opposite - being so fidgety or restless that you have been moving around a lot more than usual: not at all 9. Thoughts that you would be better off or of hurting yourself in some way: not at all Total score: 0 Depression Screening Interpretation: Negative 78801 - PHQ-9 Billing: Yes Source: Developed by Drs. Bala Farah, Dawn Chavarria, Mihai Mendiola and colleagues, with an educational siomara from [employer]. Thrive Questionnaire Date Thrive assessed: 11/04/22 I am a: Patient What is your living situation today?: I have a steady place to live Within the past 12 months, did the food you bought not last and you didn't have the money to get more?: Sometimes True Within the past 12 months, did you worry whether your food would run out before you got money to buy more?: Sometimes True Do you have trouble paying for medicines?: No Do you have trouble getting transportation to medical appointments?: No Do you have trouble paying your heating and electricity bill?: No Do you have trouble taking care of your child, family member or friend?: No Do you have trouble with day-to-day activities such as bathing, preparing meals, shopping, managing finances, etc.?: No Are you currently unemployed and looking for a job?: No Are you interested in more education?: No Currently or been in a relationship where the following occur: no concerns reported AUDIT C Alcohol Use Questionnaire (AUDIT-C) 1. How often do you have a drink containing alcohol?: Never 3. How often do you have six or more drinks on one occasion?: Never Total Score: 0 Score Reviewed/Action Taken: Yes GUY-7 AMB Questionnaire GUY-7 Date GUY - 7 assessed: 11/04/22 Feeling nervous, anxious, or on edge: 0 = Not at all Not being able to stop or control worryin = Not at all Worrying too much about different things: 0 = Not at all Trouble relaxin = Not at all Being so restless that it is hard to sit still: 0 = Not at all Becoming easily annoyed or irritable: 0 = Not at all Feeling afraid as if something awful might happen: 0 = Not at all Total GUY-7 score (0-4 normal; 5-9 mild; 10-14 moderate; 15-21 severe): 0 Source: Developed by Drs. Bala Farah, Dawn Chavarria, Mihai Mendiola and colleagues, with an educational siomara from [employer]. GUY-7 Assessment Billing GUY-7 Assessment Tool: GUY-7 Assessment 34940 Review of Systems Const Denies chills, Denies fever(s) and Denies headache(s) Eyes Denies blurry vision ENT Denies headache(s), Denies nasal discharge, Denies nasal obstruction, Denies odynophagia and Denies sinus pain Card Denies chest pain at rest and Denies chest pain with activity Resp Denies cough and Denies hemoptysis GI Denies diarrhea, Denies odynophagia, Denies vomiting and Denies hematemesis Reports as per HPI Musc Denies abnormal gait Skin/Breast Reports as per HPI Neuro Denies Neuro-related abnormal movements, Denies Abnormal speech present, Denies abnormal gait, Denies headache(s) and Denies Sensory deficit (Neuro) Psych Denies mood swings and Denies paranoia Endo Reports as per HPI Ashish/Lymph Reports as per HPI Aller/Immun Reports as per HPI Physical exam (Primary Care) Vital Signs: Last Vital Signs Pulse 77 11/04/22 10:11 BP 128/82 11/04/22 10:11 Pulse Ox 98 11/04/22 10:11 Oxygen Delivery Method Room Air 11/04/22 10:11 BMI result Body Mass Index 38.2 Tobacco/Smoking Status: Tobacco use Status Tobacco use date assessed 11/04/22 11/04/22 10:13 Patient Tobacco Use Status Never used Tobacco 11/04/22 10:13 e-Cigarette/Vaping Use Never Used 11/04/22 10:13 PHQ-9: PHQ-9 Score PHQ-9: Total score 0 11/04/22 10:52 Depression Screening Interpretation: Negative Thrive Assessment: Date of Thrive Assessment Date Thrive assessed 11/04/22 11/04/22 10:52 Currently or been in a relationship where the following occur: no concerns reported Const General: cooperative, comfortable and no acute distress Orientation/consciousness: patient oriented x3 HENMT Head: Yes normocephalic and Yes atraumatic Eyes General: appearance normal, both eyes and all related structures Pupils: Equal, round and reactive pupils present EOM: EOMs intact bilaterally Neck Neck: Yes supple and No lymphadenopathy Thyroid: Thyroid normal Lymphatic: no lymphadenopathy noted Chest Breast/axilla palpation: normal palpation of the breasts Resp Effort & Inspection: normal respiratory effort and able to speak in complete sentences Auscultation: clear to auscultation bilaterally Cardio Heart sounds: S1 normal heart sound present and S2 normal heart sound present GI Palpation (GI): Soft to palpation and nontender Auscultation: normal bowel sounds General: Yes no CVA tenderness Back/Spine/Pelvis Back: no CVA tenderness Skin General skin exam: elasticity normal and turgor normal Neuro General: patient oriented x3 and gait normal Cranial nerves: Yes Equal, round and reactive pupils present Speech: No Abnormal speech present Sensory Exam: No Sensory deficit (Neuro) Coordination: tandem gait normal and Romberg test negative Extrem General: Yes normal exam except as noted and No edema Assessment and Plan Assessment & Plan (1) Encounter for general adult medical examination with abnormal findings: Code(s): Z00.01 - Encounter for general adult medical examination with abnormal findings (2) Obesity due to excess calories: Code(s): E66.09 - Other obesity due to excess calories Qualifiers: Obesity classification: adult class 2 (BMI 35 - 39.9) Serious obesity comorbidity presence: without serious comorbidity Body mass index: BMI 38.0- 38.9 Qualified Code(s): E66.09 - Other obesity due to excess calories; Z68.38 - Body mass index [BMI] 38.0-38.9, adult (3) Vitamin D deficiency: Code(s): E55.9 - Vitamin D deficiency, unspecified (4) Bipolar disorder: Code(s): F31.9 - Bipolar disorder, unspecified Qualifiers: Active/Remission status: in full remission Most recent bipolar episode type: mixed Qualified Code(s): F31.78 - Bipolar disorder, in full remission, most recent episode mixed (5) Hyperparathyroidism: Code(s): E21.3 - Hyperparathyroidism, unspecified (6) Non-toxic multinodular goiter: Code(s): E04.2 - Nontoxic multinodular goiter (7) Acid reflux: Code(s): K21.9 - Gastro-esophageal reflux disease without esophagitis Qualifiers: Esophagitis presence: without esophagitis Qualified Code(s): K21.9 - Gastro-esophageal reflux disease without esophagitis (8) Psychiatric illness: Code(s): F99 - Mental disorder, not otherwise specified (9) KEMAL (obstructive sleep apnea): Comment: Mild degree of sleep apnea. The AHI was 9/hr and oxygen helen was 87%. Code(s): G47.33 - Obstructive sleep apnea (adult) (pediatric) (10) Excessive sleepiness: Code(s): G47.10 - Hypersomnia, unspecified Plan Patient is 67-year-old female came in today for physical examination. Mammogram appointment in December Colonoscopy appointment is coming this month on 19 She also have a endocrinology appointment coming up this month. For the m anagement of hyperparathyroidism Complaining of irrigated come for the past 1 month with postnasal drip Patient was advised to start taking long-acting antihistamine [id number] and see if that improves the symptoms. Patient have a psychiatric illness which is being managed through Psychiatry. History of hysterectomy secondary to fibroids Patient have history of appendix cancer and goes for follow-up every 6 months with Oncology. BMI is elevated patient has difficulty losing weight She has appointment with the Neurology coming up in January to be evaluated for sleep apnea. Follow-up next year for physical examination Labs to be done today Orders: Orders Comprehensive Met. Panel Today E04.2 - Nontoxic multinodular goiter, E21.3 - Hyperparathyroidism, unspecified, E55.9 - Vitamin D deficiency, unspecified, E66.09 - Other obesity due to excess calories, F31.9 - Bipolar disorder, unspecified, F99 - Mental disorder, not otherwise specified, G47.33 - Obstructive sleep apnea (adult) (pediatric), K21.9 - Gastro-esophageal reflux disease without esophagitis, Z00.01 - Encounter for general adult medical examination with abnormal findings LDL Cholesterol Direct Today E04.2 - Nontoxic multinodular goiter, E21.3 - Hyperparathyroidism, unspecified, E55.9 - Vitamin D deficiency, unspecified, E66.09 - Other obesity due to excess calories, F31.9 - Bipolar disorder, unspecified, F99 - Mental disorder, not otherwise specified, G47.33 - Obstructive sleep apnea (adult) (pediatric), K21.9 - Gastro-esophageal reflux disease without esophagitis, Z00.01 - Encounter for general adult medical examination with abnormal findings TSH reflex Free T4 Today E04.2 - Nontoxic multinodular goiter, E21.3 - Hyperparathyroidism, unspecified, E55.9 - Vitamin D deficiency, unspecified, E66.09 - Other obesity due to excess calories, F31.9 - Bipolar disorder, unspecified, F99 - Mental disorder, not otherwise specified, G47.33 - Obstructive sleep apnea (adult) (pediatric), K21.9 - Gastro-esophageal reflux disease without esophagitis, Z00.01 - Encounter for general adult medical examination with abnormal findings Vitamin D 25-OH (D2 and D3) Today E04.2 - Nontoxic multinodular goiter, E21.3 - Hyperparathyroidism, unspecified, E55.9 - Vitamin D deficiency, unspecified, E66.09 - Other obesity due to excess calories, F31.9 - Bipolar disorder, unspecified, F99 - Mental disorder, not otherwise specified, G47.33 - Obstructive sleep apnea (adult) (pediatric), K21.9 - Gastro-esophageal reflux disease without esophagitis, Z00.01 - Encounter for general adult medical examination with abnormal findings Complete Blood Count Auto Diff Today E04.2 - Nontoxic multinodular goiter, E21.3 - Hyperparathyroidism, unspecified, E55.9 - Vitamin D deficiency, unspecified, E66.09 - Other obesity due to excess calories, F31.9 - Bipolar disorder, unspecified, F99 - Mental disorder, not otherwise specified, G47.33 - Obstructive sleep apnea (adult) (pediatric), K21.9 - Gastro-esophageal reflux disease without esophagitis, Z00.01 - Encounter for general adult medical examination with abnormal findings Coding Level of Care Code Est Pt Prev Care >65y(32285) Diagnoses Encounter for general adult medical examination with abnormal findings Z00.01 Obesity due to excess calories E66.09; Z68.38 Obesity classification: adult class 2 (BMI 35 - 39.9) Serious obesity comorbidity presence: without serious comorbidity Body mass index: BMI 38.0-38.9 Vitamin D deficiency E55.9 Bipolar disorder F31.78 Active/Remission status: in full remission Most recent bipolar episode type: mixed Hyperparathyroidism E21.3 Non-toxic multinodular goiter E04.2 Acid reflux K21.9 Esophagitis presence: without esophagitis Psychiatric illness F99 KEMAL (obstructive sleep apnea) G47.33 Excessive sleepiness G47.10 Additional Codes GUY-7 Assessment Billing - GUY-7 Assessment Tool: GUY-7 Assessment 59152 ([id number])
== END 2022-11-04 10:57 | disposition home or self-care (01) ==
PROVIDERS: Visit Provider Internal Medicine
DX: Z00.01 Encounter for general adult medical examination with abnormal findings (principal); E66.09 Other obesity due to excess calories; Z68.38 Body mass index [BMI] 38.0-38.9, adult; E55.9 Vitamin D deficiency, unspecified; F31.78 Bipolar disorder, in full remission, most recent episode mixed; E21.3 Hyperparathyroidism, unspecified; E04.2 Nontoxic multinodular goiter; K21.9 Gastro-esophageal reflux disease without esophagitis; F99 Mental disorder, not otherwise specified; G47.33 Obstructive sleep apnea (adult) (pediatric); G47.10 Hypersomnia, unspecified
CPT/HCPCS: 99397

== ENCOUNTER 2022-11-04 10:53 | Outpatient (REF) | payer OTHER, SELFPAY ==
[2022-11-04 13:17] LABS: MANUAL DIFF FLAG NO
[2022-11-04 13:31] LABS: Basophils Percent Auto 0.5 % (0-2); Eosinophils Absolute Auto 0.1 X10*3/uL (0.0-0.4); Eosinophils Percent Auto 1.8 % (0-4); Hematocrit 42.6 % (37.0-47.0); Hemoglobin 13.9 g/dl (12.0-16.0); Imm Gran Abs Auto 0.03 X10*3/uL (0.00-0.03); Imm Gran Pct Auto 0.4 % (0.0-0.4); Lymphocytes Absolute Auto 3.9 X10*3/uL (1.2-4.9); Lymphocytes Percent Auto 50.6 % (20-40); Mean Corpuscular HGB Conc 32.6 g/dl (31.0-35.0); Mean Corpuscular Hemoglobin 31.8 pg (27.0-33.0); Mean Corpuscular Volume 97.5 fL (80.0-98.0); Mean Platelet Volume 10.3 fL (9.4-12.3); Monocytes Absolute Auto 0.6 X10*3/uL (0.1-1.2); Monocytes Percent Auto 7.3 % (2-11); Neutrophils Percent Auto 39.4 % (45-73); Platelet Count 280 X10*3/uL (160-400); Red Blood Count 4.37 X10*6/uL (4.20-5.50); Red Cell Distribution Width 13.4 % (11.0-16.0); White Blood Count 7.7 X10*3/uL (4.8-10.8)
[2022-11-04 13:54] LABS: Alanine Aminotransferase 30 U/L (0-31); Albumin Level 4.4 g/dL (3.5-5.0); Alkaline Phosphatase 119 U/L (39-117); Anion Gap 10 (12-20); Aspartate Amino Transferase 25 U/L (5-31); Bilirubin Total 1.5 mg/dL (0.0-1.0); Blood Urea Nitrogen 16 mg/dL (9-16); Calcium 11.6 mg/dL (8.4-10.2); Carbon Dioxide 26 mmol/L (22-29); Chloride 109 mmol/L (96-108); Estimated Glomerular Filt Rate 49; Glucose Random 102 mg/dL (60-115); Potassium 4.3 mmol/L (3.3-5.1); Sodium 141 mmol/L (135-145); Total Protein 7.3 g/dL (6.5-8.0)
[2022-11-04 13:58] LABS: TSH reflex Free T4 2.31 uIU/mL (0.32-4.0)
[2022-11-05 22:48] LABS: LDL Cholesterol Direct 141 mg/dL (<100)
[2022-11-08 14:49] LABS: Vitamin D 25-OH, D2 <4 ng/mL; Vitamin D 25-OH, D3 24 ng/mL; Vitamin D 25-OH, Total 24 ng/mL (30-100)
== END 2022-11-04 10:54 | disposition home or self-care (01) ==
LOC: HO.HMGCLDS 10:53
PROVIDERS: PCP Internal Medicine; Visit Provider Internal Medicine
DX: Z00.01 Encounter for general adult medical examination with abnormal findings (principal); E04.2 Nontoxic multinodular goiter; E21.3 Hyperparathyroidism, unspecified; E55.9 Vitamin D deficiency, unspecified; E66.09 Other obesity due to excess calories; F31.9 Bipolar disorder, unspecified; G47.33 Obstructive sleep apnea (adult) (pediatric); K21.9 Gastro-esophageal reflux disease without esophagitis
CPT/HCPCS: 36415; 80053; 82306; 83721; 84443; 85025

== ENCOUNTER 2022-11-11 12:26 | Outpatient (AMB) | payer OTHER, SELFPAY ==
--- NOTE | 2022-11-11 12:41 | A.OFFVIS_ITS ---
Intake Vital Signs 11/11/22 12:47 Weight 231 lb 4.238 oz BP 118/88 Blood Pressure Location Lt brachial Position Sitting Pulse 82 Pulse Source Pulse Oximeter Intake Visit Reasons: F/U hyperparathyroidism and MNG Intake Note: Patient present for Hyperparathyroidism and MNG follow up visit. As[employer]er [employer] Top Required: No Accompanied by: Self / Same As Patient Allergies citalopram Allergy (Unknown, Verified 11/11/22 12:50) Unknown ibuprofen Allergy (Unknown, Verified 11/11/22 12:50) unknown loratadine Allergy (Unknown, Verified 11/11/22 12:50) unknown Medication List - Last Reconciled 11/11/22 by Bala Solis MD aripiprazole 20 mg PO DAILY [Blood pressure monitor large cuff] bupropion HCl 200 mg PO QAM hydroxyzine HCl 25 mg PO TID PRN HPI HPI Comments History of Present Illness Details 67-year-old female , here for hyperparathyroidism adn MNG . Sh She denies constipation, she denies nocturia, polyuria and polydipsia. DEXA bone density showed osteopenia in 2019 and 2021 She denies prior fractures, denies GERD, she had family history of bone cancer or bone metastasis in her mother. Not clear if she did have is osteoporosis or not. She denies nephrolithiasis, denies steroids used, never smoker, denies anti seizures medications. She was on lithium twice a day since January 2019 until April 2019. This medication was stopped due to polyuria and polydipsia. 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 She denies History of head or neck irradiation. She denies history of osteoporosis herself but she has never been screened. She had Benign FNA of right mid pole nodule on 09/28/2019 consistent with benign follicular nodule.. Repeat ultrasound shows possible pseudo nodule andFNA was not performed 04/07/2019 Calcium 10.7 mg/dL Albumin 4.2 g per dL Alkaline phosphatase 123 units/liter TSH 1.35 mIU/mL Creatinine 0.8 mg per dL GFR more than 60 mL/minute. 04/14/2019 PTH 79 pg/mL Alkaline phosphatase bone 14.5 micrograms/liter Calcium 10.5 mg/dL. 04/13/19 Calcium 10.7 mg per dL 04/20/2019 Calcium 10.8 mg/dL/11.1 mg/dL PTH 69 pg per mL. Her daughter has history of nontoxic multinodular goiter. 08/17/2019 US Thyroid. Right Thyroid Lobe: 4.2 x 2.0 x 2.0 cm, volume 8.7 mL. Parenchyma: The gland echotexture is homogeneous. Thyroid vascularity is normal. Left Thyroid Lobe: 3.7 x 1.7 x 1.5 cm, volume 4.9 mL. Parenchyma: The gland echotexture is homogeneous. Thyroid vascularity is normal. Isthmus: 0.5 cm in maximum AP dimension. RIGHT THYROID LOBE: There are greater than 4 nodules seen. 1. Location: Middle. Size: 0.4 x 0.3 x 0.3 cm. Nodule characteristics: Hypoechoic, smoothly marginated with no intranodular flow, likely a complex cyst. 2. Location: Middle. Size: 1.3 x 1.1 x 1.3 cm. Nodule characteristics: Hypoechoic, smoothly marginated with echogenic calcifications and peripheral intranodular flow. 3. Location: Middle. Size: 0.3 x 0.3 x 0.3 cm. Nodule characteristics: Hypoechoic, smoothly marginated with no intranodular flow, likely complex cyst. 4. Location: Inferior. Size: 0.3 x 0.3 x 0.3 cm. Nodule characteristics: Hypoechoic, smoothly marginated with no intranodular flow. ISTHMUS: There is 1 nodule seen. 1. Location: Inferior. Size: 0.5 x 0.3 x 0.5 cm. Nodule characteristics: Hypoechoic, smoothly marginated with no intranodular flow. LEFT THYROID LOBE: There are 4 nodules seen. 1. Location: Middle. Size: 0.3 x 0.2 x 0.2 cm. Nodule characteristics: Hypoechoic, smoothly marginated with no intranodular flow. 2. Location: Middle. Size: 0.3 x 0.3 x 0.4 cm. Nodule characteristics: Isoechoic, smoothly marginated with no intranodular flow. 3. Location: Inferior. Size: 0.4 x 0.2 x 0.3 cm. Nodule characteristics: Hypoechoic, smoothly marginated with no intranodular flow. 4. Location: Inferior. Size: 0.4 x 0.2 x 0.2 cm. Nodule characteristics: Isoechoic, smoothly marginated with no intranodular flow. NODES: No lymphadenopathy is seen in the tissue surrounding the thyroid gland. 01/19/2020 FINDINGS: AP SPINE L1-L4: BMD 0.996 g/cm2, Z-score -1.6, T-score -1.5, osteopenia. LEFT FEMUR, NECK: BMD 0.963 g/cm2, Z-score -0.6, T-score -0.5, normal. LEFT FEMUR, TOTAL: BMD 1.041 g/cm2, Z-score -0.2, T-score 0.3, normal. LEFT FOREARM RADIUS 33%: BMD 0.946 g/cm2, Z-score 1.2, T-score 0.8, normal. Laboratory Tests 04/20/19 05/04/19 05/04/19 08:20 09:48 09:48 BUN Creatinine Est GFR (Non-Af Am er) Calcium Phosphorus Magnesium Alkaline Phosphata se Albumin 25-OH Vitamin D To cassandra Vit D 1,25-Dihyd T otal 1,25 Dihydroxy Vit D 1,25 Dihydroxy Vit D2 1,25 Dihydroxy Vit D3 Free T4 0.83 TSH 3rd Generation 1.60 PTH Intact Calcium (PTH Intac t) Ur 24 Hour Volume Ur Creatinine mg/d L Ur Creatinine 24 H our Ur Calcium 24 Hr Calcium/Creat 24 H r Bone Specific Alk Phos 16.7 Thyroglobulin Anti body <1 Thyroid Peroxidase Ab <1 05/08/19 05/08/19 08/29/19 08:00 08:00 08:28 BUN Creatinine Est GFR (Non-Af Am er) Calcium Phosphorus 3.0 Magnesium 2.1 Alkaline Phosphata se Albumin 25-OH Vitamin D To cassandra Vit D 1,25-Dihyd T otal 1,25 Dihydroxy Vit D 1,25 Dihydroxy Vit D2 1,25 Dihydroxy Vit D3 Free T4 TSH 3rd Generation PTH Intact Calcium (PTH Intac t) Ur 24 Hour Volume 800 Ur Creatinine mg/d L 117.18 Ur Creatinine 24 H our 0.94 Ur Calcium 24 Hr 153 Calcium/Creat 24 H r 163 Bone Specific Alk Phos Thyroglobulin Anti body Thyroid Peroxidase Ab 10/09/19 10/09/19 01/02/20 11:14 11:14 09:16 BUN 11 Creatinine 0.86 Est GFR (Non-Af Am er) > 60 Calcium 11.0 H Phosphorus Magnesium Alkaline Phosphata se 115 Albumin 4.3 25-OH Vitamin D To cassandra 15.6 Vit D 1,25-Dihyd T otal 72 1,25 Dihydroxy Vit D 1,25 Dihydroxy Vit D2 1,25 Dihydroxy Vit D3 Free T4 TSH 3rd Generation PTH Intact Calcium (PTH Intac t) Ur 24 Hour Volume Ur Creatinine mg/d L Ur Creatinine 24 H our Ur Calcium 24 Hr Calcium/Creat 24 H r Bone Specific Alk Phos Thyroglobulin Anti body Thyroid Peroxidase Ab 01/02/20 09:16 BUN Creatinine Est GFR (Non-Af Am er) Calcium Phosphorus Magnesium Alkaline Phosphata se Albumin 25-OH Vitamin D To cassandra Vit D 1,25-Dihyd T otal 1,25 Dihydroxy Vit D 67 1,25 Dihydroxy Vit D2 12 1,25 Dihydroxy Vit D3 55 Free T4 TSH 3rd Generation PTH Intact 98 H Calcium (PTH Intac t) 11.2 H Ur 24 Hour Volume Ur Creatinine mg/d L Ur Creatinine 24 H our Ur Calcium 24 Hr Calcium/Creat 24 H r Bone Specific Alk Phos Thyroglobulin Anti body Thyroid Peroxidase Ab PFSH Medical History Bipolar disorder Hyperparathyroidism Non-toxic multinodular goiter Obesity Vitamin D deficiency Surgical History History of section History of colectomy History of hysterectomy Hx of cholecystectomy Family History Mother HTN (hypertension) Diabetes mellitus Cancer Family/Other HTN (hypertension) Social History Household Members: Family Household Members Other:: daughter, son Housing: House Alcohol intake: never Patient Tobacco Use Status: Never used Tobacco e-Cigarette/Vaping Use: Never Used Second Hand Smoke Exposure: No service: No Current occupational status: disabled Cognitive needs: No Hearing needs: No Vision needs: Yes Assessment & Plan Assessment & Plan (1) Hyperparathyroidism: Code(s): E21.3 - Hyperparathyroidism, unspecified Plan: 67-year-old female with a history of ?mild primary hyperparathyroidism and prior lithium use. She does not have osteoporosis on bone density and renal ultrasound did not show the presence of any stones The plan is for continued observation (2) Non-toxic multinodular goiter: Code(s): E04.2 - Nontoxic multinodular goiter Plan: Status post FNA of right midpole nodule with benign cytology. Appears to be clinically euthyroid. Repeat thyroid ultrasound showed changes in the right midpole nodule but repeat ultrasound by Dr. Perry showed pseudo nodule Plan is to continue to observe and perhaps repeat thyroid ultrasound about 1-2 years time Coding Level of Care Code Est Pt Level 3 (32742) Diagnoses Hyperparathyroidism E21.3 Non-toxic multinodular goiter E04.2
[2022-11-11 12:47] VITALS: BP 118/88; PULSE 82
== END 2022-11-11 12:55 | disposition home or self-care (01) ==
PROVIDERS: Visit Provider Internal Medicine Endocrinology, Diabetes & Metabolism
DX: E21.3 Hyperparathyroidism, unspecified (principal); E04.2 Nontoxic multinodular goiter
CPT/HCPCS: 99213

== ENCOUNTER → 2022-11-11 12:26 | Outpatient (BNVA) | payer OTHER, SELFPAY | PROVIDERS: Visit Provider Internal Medicine Endocrinology, Diabetes & Metabolism | DX: E21.3 Hyperparathyroidism, unspecified (principal); E04.2 Nontoxic multinodular goiter | CPT/HCPCS: 99212 ==

== ENCOUNTER 2023-01-04 10:48 | Outpatient (REF) | payer OTHER, SELFPAY ==
--- NOTE | ~2023-01-04 | MM_ITS ---
EXAMINATION: MM SCREENING DIGITAL BREAST TOMOSYNTHESIS, BILATERAL CLINICAL INFORMATION: Screening. Asymptomatic. COMPARISON: Mammography: This study is compared with prior exams dating back to 2019. TECHNIQUE: Digital breast tomosynthesis is performed in both the craniocaudal and mediolateral oblique views along with computer-aided detection (CAD). Synthesized 2D images are generated from the tomosynthesis. FINDINGS: There are scattered areas of fibroglandular density (ACR BI-RADS breast composition Category b). There are no significant masses, abnormal calcifications, or other abnormalities. Few, bilateral, benign calcifications are present. MM/MM tomosynthesis screening BI IMPRESSION: No mammographic evidence of malignancy. ASSESSMENT: BI-RADS BI-RADS 2 - Benign Findings RECOMMENDATION: Routine annual mammography screening. 1 year F/U This examination should not preclude the clinical evaluation of a suspicious palpable abnormality. This patient's information was entered into a reminder system with a target due date for their next mammogram.
== END 2023-01-04 10:49 | disposition home or self-care (01) ==
LOC: HO.MAMMO 10:48
PROVIDERS: PCP Internal Medicine; Visit Provider Internal Medicine
DX: Z12.31 Encounter for screening mammogram for malignant neoplasm of breast (principal)
CPT/HCPCS: 77063; 77067

== ENCOUNTER → 2023-01-04 11:00 | Outpatient (BNV) | payer OTHER, SELFPAY | PROVIDERS: PCP Internal Medicine; Visit Provider Radiology Diagnostic Radiology | DX: Z12.31 Encounter for screening mammogram for malignant neoplasm of breast (principal) | CPT/HCPCS: 77063; 77067 ==

== ENCOUNTER 2023-03-17 09:26 | Outpatient (AMB) | payer OTHER, SELFPAY ==
--- NOTE | 2023-03-17 09:27 | MHC.OFFVIS ---
Intake Vital Signs 03/17/23 09:28 Height 5 ft 5 in Weight 232 lb BMI 38.6 BP 146/90 H Blood Pressure Location Rt brachial Position Sitting Pulse 101 H Pulse Source Pulse Oximeter Pulse Oximetry (%) 96 Oxygen Delivery Method Room Air Intake Visit Reasons: 6m Follow up for Sleep/ confirmed-Confirmed Intake Note: Patient presents for 6 month follow up sleep Allergies citalopram Allergy (Unknown, Verified 03/17/23 09:30) Unknown ibuprofen Allergy (Unknown, Verified 03/17/23 09:30) unknown loratadine Allergy (Unknown, Verified 03/17/23 09:30) unknown HPI HPI Comments History of Present Illness Details 67 y/o female patient presents for follow up of KEMAL. Pt reports she didn't get CPAP supplies. She sleeps ok, 7-8 hrs She stopped using CPAP, her insurance does not cover the supplies. She feels good in the morning and not tired during daytime. She started exercise 15 min treadmill daily. She states that sleeps better now from 9 pm to 5 am, and daytime fatigue has improved. However, Pt had sinus congestion due to seasonal allergy and could not use CPAP well. Pt reports that her anxiety controls well. [facility] Medical History Bipolar disorder Hyperparathyroidism Non-toxic multinodular goiter Obesity Vitamin D deficiency Surgical History History of colectomy Hx of cholecystectomy History of section History of hysterectomy Family History Mother HTN (hypertension) Diabetes mellitus Cancer Family/Other HTN (hypertension) Social History Household Members: Family Household Members Other:: daughter, son Housing: House Alcohol intake: never Patient Tobacco Use Status: Never used Tobacco e-Cigarette/Vaping Use: Never Used Second Hand Smoke Exposure: No service: No Current occupational status: disabled Cognitive needs: No Hearing needs: No Vision needs: Yes Review of Systems Const All systems reviewed & are unremarkable except as noted in HPI and below ENT Reports Normal hearing present Neuro Reports Normal hearing present Physical Exam Vital Signs: Last Vital Signs Pulse 101 H 03/17/23 09:28 BP 146/90 H 03/17/23 09:28 Pulse Ox 96 03/17/23 09:28 Oxygen Delivery Method Room Air 03/17/23 09:28 BMI result Body Mass Index 38.6 Const General: cooperative Nutritional Appearance: obese Orientation/consciousness: patient oriented x3 HEENT Throat: Yes other (mallampati score 4) Neck Neck: Yes full ROM and Yes supple Resp Effort & Inspection: normal respiratory effort and able to speak in complete sentences Neuro General: patient oriented x3 and gait normal Cranial nerves: Yes Normal facial strength present, Yes Midline tongue present, Yes Symmetric palate elevation present, Yes Normal hearing present, Yes Ability to bilaterally rotate head present and Yes Ability to bilaterally elevate shoulders present Cognition (Neuro): normal cognition Gait exam (Neuro): Normal gait present Psych Appearance: grossly normal Mental Status: mental status grossly normal Speech and movement: Normal speech and movement present Affect: normal affect Attitude: cooperative Assessment & Plan Assessment & Plan (1) KEMAL (obstructive sleep apnea): Comment: Mild degree of sleep apnea. The AHI was 9/hr and oxygen helen was 87%. Code(s): G47.33 - Obstructive sleep apnea (adult) (pediatric) Plan Continue to practice sleep hygiene. Wt reduction advised. Advised patient to lose 10% of her body weight. Will repeat sleep study in a year after losing wt. Coding Level of Care Code Est Pt Level 3 (96564) Diagnoses KEMAL (obstructive sleep apnea) G47.33
[2023-03-17 09:28] VITALS: BP 146/90; PULSE 101; O2SAT 96; BMI 38.6
== END 2023-03-17 09:56 | disposition home or self-care (01) ==
PROVIDERS: PCP Internal Medicine; Visit Provider Nurse Practitioner Family
DX: G47.33 Obstructive sleep apnea (adult) (pediatric) (principal)
CPT/HCPCS: 99213

== ENCOUNTER → 2023-03-17 09:26 | Outpatient (BNVA) | payer OTHER, SELFPAY | PROVIDERS: PCP Internal Medicine; Visit Provider Nurse Practitioner Family | DX: G47.33 Obstructive sleep apnea (adult) (pediatric) (principal) | CPT/HCPCS: 99212 ==

== ENCOUNTER 2023-11-11 11:15 | Outpatient (AMB) | payer OTHER, SELFPAY ==
--- NOTE | 2023-11-11 11:16 | A.OFFVIS_ITS ---
Vital Signs 11/11/23 11:20 Height 5 ft 5 in Weight 233 lb 3.985 oz BMI 38.8 BP 154/82 H Blood Pressure Location Lt brachial Position Sitting Pulse 87 Pulse Source Pulse Oximeter Intake Visit Reasons: f/u hyperparthyroidism/MNG-conf Intake Note: Patient present today for Hyperparathyroidism/ MNG follow up. [employer] Technician Required: No Accompanied by: Self / Same As Patient Allergies citalopram Allergy (Unknown, Verified 11/11/23 11:21) Unknown ibuprofen Allergy (Unknown, Verified 11/11/23 11:21) unknown loratadine Allergy (Unknown, Verified 11/11/23 11:21) unknown HPI Comments Details: 67-year-old female , here for hyperparathyroidism adn MNG . Sh She denies constipation, she denies nocturia, polyuria and polydipsia. DEXA bone density showed osteopenia in 2019 and 2021 She denies prior fractures, denies GERD, she had family history of bone cancer or bone metastasis in her mother. Not clear if she did have is osteoporosis or not. She denies nephrolithiasis, denies steroids used, never smoker, denies anti seizures medications. She was on lithium twice a day since January 2019 until April 2019. This medication was stopped due to polyuria and polydipsia. 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 She denies History of head or neck irradiation. She denies history of osteoporosis herself but she has never been screened. She had Benign FNA of right mid pole nodule on 09/28/2019 consistent with benign follicular nodule.. Repeat ultrasound shows possible pseudo nodule andFNA was not performed 04/07/2019 Calcium 10.7 mg/dL Albumin 4.2 g per dL Alkaline phosphatase 123 units/liter TSH 1.35 mIU/mL Creatinine 0.8 mg per dL GFR more than 60 mL/minute. 04/14/2019 PTH 79 pg/mL Alkaline phosphatase bone 14.5 micrograms/liter Calcium 10.5 mg/dL. 04/13/19 Calcium 10.7 mg per dL 04/20/2019 Calcium 10.8 mg/dL/11.1 mg/dL PTH 69 pg per mL. Her daughter has history of nontoxic multinodular goiter. 08/17/2019 US Thyroid. Right Thyroid Lobe: 4.2 x 2.0 x 2.0 cm, volume 8.7 mL. Parenchyma: The gland echotexture is homogeneous. Thyroid vascularity is normal. Left Thyroid Lobe: 3.7 x 1.7 x 1.5 cm, volume 4.9 mL. Parenchyma: The gland echotexture is homogeneous. Thyroid vascularity is normal. Isthmus: 0.5 cm in maximum AP dimension. RIGHT THYROID LOBE: There are greater than 4 nodules seen. 1. Location: Middle. Size: 0.4 x 0.3 x 0.3 cm. Nodule characteristics: Hypoechoic, smoothly marginated with no intranodular flow, likely a complex cyst. 2. Location: Middle. Size: 1.3 x 1.1 x 1.3 cm. Nodule characteristics: Hypoechoic, smoothly marginated with echogenic calcifications and peripheral intranodular flow. 3. Location: Middle. Size: 0.3 x 0.3 x 0.3 cm. Nodule characteristics: Hypoechoic, smoothly marginated with no intranodular flow, likely complex cyst. 4. Location: Inferior. Size: 0.3 x 0.3 x 0.3 cm. Nodule characteristics: Hypoechoic, smoothly marginated with no intranodular flow. ISTHMUS: There is 1 nodule seen. 1. Location: Inferior. Size: 0.5 x 0.3 x 0.5 cm. Nodule characteristics: Hypoechoic, smoothly marginated with no intranodular flow. LEFT THYROID LOBE: There are 4 nodules seen. 1. Location: Middle. Size: 0.3 x 0.2 x 0.2 cm. Nodule characteristics: Hypoechoic, smoothly marginated with no intranodular flow. 2. Location: Middle. Size: 0.3 x 0.3 x 0.4 cm. Nodule characteristics: Isoechoic, smoothly marginated with no intranodular flow. 3. Location: Inferior. Size: 0.4 x 0.2 x 0.3 cm. Nodule characteristics: Hypoechoic, smoothly marginated with no intranodular flow. 4. Location: Inferior. Size: 0.4 x 0.2 x 0.2 cm. Nodule characteristics: Isoechoic, smoothly marginated with no intranodular flow. NODES: No lymphadenopathy is seen in the tissue surrounding the thyroid gland. 01/19/2020 FINDINGS: AP SPINE L1-L4: BMD 0.996 g/cm2, Z-score -1.6, T-score -1.5, osteopenia. LEFT FEMUR, NECK: BMD 0.963 g/cm2, Z-score -0.6, T-score -0.5, normal. LEFT FEMUR, TOTAL: BMD 1.041 g/cm2, Z-score -0.2, T-score 0.3, normal. LEFT FOREARM RADIUS 33%: BMD 0.946 g/cm2, Z-score 1.2, T-score 0.8, normal. Laboratory Tests 04/20/19 05/04/19 05/04/19 08:20 09:48 09:48 BUN Creatinine Est GFR (Non-Af Amer) Calcium Phosphorus Magnesium Alkaline Phosphatase Albumin 25-OH Vitamin D Total Vit D 1,25-Dihyd Total 1,25 Dihydroxy Vit D 1,25 Dihydroxy Vit D2 1,25 Dihydroxy Vit D3 Free T4 0.83 TSH 3rd Generation 1.60 PTH Intact Calcium (PTH Intact) Ur 24 Hour Volume Ur Creatinine mg/dL Ur Creatinine 24 Hour Ur Calcium 24 Hr Calcium/Creat 24 Hr Bone Specific Alk Phos 16.7 Thyroglobulin Antibody <1 Thyroid Peroxidase Ab <1 05/08/19 05/08/19 08/29/19 08:00 08:00 08:28 BUN Creatinine Est GFR (Non-Af Amer) Calcium Phosphorus 3.0 Magnesium 2.1 Alkaline Phosphatase Albumin 25-OH Vitamin D Total Vit D 1,25-Dihyd Total 1,25 Dihydroxy Vit D 1,25 Dihydroxy Vit D2 1,25 Dihydroxy Vit D3 Free T4 TSH 3rd Generation PTH Intact Calcium (PTH Intact) Ur 24 Hour Volume 800 Ur Creatinine mg/dL 117.18 Ur Creatinine 24 Hour 0.94 Ur Calcium 24 Hr 153 Calcium/Creat 24 Hr 163 Bone Specific Alk Phos Thyroglobulin Antibody Thyroid Peroxidase Ab 10/09/19 10/09/19 01/02/20 11:14 11:14 09:16 BUN 11 Creatinine 0.86 Est GFR (Non-Af Amer) > 60 Calcium 11.0 H Phosphorus Magnesium Alkaline Phosphatase 115 Albumin 4.3 25-OH Vitamin D Total 15.6 Vit D 1,25-Dihyd Total 72 1,25 Dihydroxy Vit D 1,25 Dihydroxy Vit D2 1,25 Dihydroxy Vit D3 Free T4 TSH 3rd Generation PTH Intact Calcium (PTH Intact) Ur 24 Hour Volume Ur Creatinine mg/dL Ur Creatinine 24 Hour Ur Calcium 24 Hr Calcium/Creat 24 Hr Bone Specific Alk Phos Thyroglobulin Antibody Thyroid Peroxidase Ab 01/02/20 09:16 BUN Creatinine Est GFR (Non-Af Amer) Calcium Phosphorus Magnesium Alkaline Phosphatase Albumin 25-OH Vitamin D Total Vit D 1,25-Dihyd Total 1,25 Dihydroxy Vit D 67 1,25 Dihydroxy Vit D2 12 1,25 Dihydroxy Vit D3 55 Free T4 TSH 3rd Generation PTH Intact 98 H Calcium (PTH Intact) 11.2 H Ur 24 Hour Volume Ur Creatinine mg/dL Ur Creatinine 24 Hour Ur Calcium 24 Hr Calcium/Creat 24 Hr Bone Specific Alk Phos Thyroglobulin Antibody [facility]idase [facility] Medical History Bipolar disorder Hyperparathyroidism Non-toxic multinodular goiter Obesity Vitamin D deficiency Surgical History History of colectomy Hx of cholecystectomy History of section History of hysterectomy Family History Mother HTN (hypertension) Diabetes mellitus Cancer Family/Other HTN (hypertension) Social History Household Members: Family Household Members Other:: daughter, son Housing: House Alcohol intake: never Patient Tobacco Use Status: Never used Tobacco e-Cigarette/Vaping Use: Never Used Second Hand Smoke Exposure: No service: No Current occupational status: disabled Cognitive needs: No Hearing needs: No Vision needs: Yes Physical Exam Vital Signs: BMI result Body Mass Index 38.8 Assessment & Plan Assessment & Plan (1) Hyperparathyroidism: Code(s): E21.3 - Hyperparathyroidism, unspecified Category: Medical Plan: 67-year-old female with a history of ?mild primary hyperparathyroidism and prior lithium use. She does not have osteoporosis on bone density and renal ult rasound did not show the presence of any stones. However, calcium level has risen to the point where surgical intervention may be necessary The plan is send the patient to Dr. Rangel for surgical parathyroidectomy (2) Non-toxic multinodular goiter: Code(s): E04.2 - Nontoxic multinodular goiter Category: Medical Plan: Status post FNA of right midpole nodule with benign cytology. Appears to be clinically euthyroid. Repeat thyroid ultrasound showed changes in the right midpole nodule but repeat ultrasound by Dr. Perry showed pseudo nodule Plan is to continue to observe and perhaps repeat thyroid ultrasound about 1-2 years time Orders: Orders Calcium Today E21.3 - Hyperparathyroidism, unspecified Albumin Level Today E21.3 - Hyperparathyroidism, unspecified Referrals General Surgery Referral E21.3 - Hyperparathyroidism, unspecified Medications: New cholecalciferol (vitamin D3) 50 mcg PO DAILY 30 caps 4RF Coding Level of Care Code Est Pt Level 3 (99819) Diagnoses Hyperparathyroidism E21.3 Non-toxic multinodular goiter E04.2
[2023-11-11 11:20] VITALS: BP 154/82; PULSE 87; BMI 38.8
== END 2023-11-11 11:39 | disposition home or self-care (01) ==
PROVIDERS: PCP Internal Medicine; Visit Provider Internal Medicine Endocrinology, Diabetes & Metabolism
DX: E21.3 Hyperparathyroidism, unspecified (principal); E04.2 Nontoxic multinodular goiter
CPT/HCPCS: 99213

== ENCOUNTER 2023-11-11 11:50 | Outpatient (REF) | payer OTHER, SELFPAY ==
[2023-11-11 13:32] LABS: Albumin Level 4.2 g/dL (3.5-5.0); Calcium 11.2 mg/dL (8.4-10.2)
== END 2023-11-11 11:51 | disposition home or self-care (01) ==
LOC: HO.10HDL 11:50
PROVIDERS: Visit Provider Internal Medicine Endocrinology, Diabetes & Metabolism
DX: E21.3 Hyperparathyroidism, unspecified (principal); E04.2 Nontoxic multinodular goiter
CPT/HCPCS: 36415; 82040; 82310; 99212

== ENCOUNTER 2023-11-16 10:21 | Outpatient (AMB) | payer OTHER, SELFPAY ==
[2023-11-16 10:25] VITALS: BP 142/88; PULSE 81; O2SAT 98; BMI 38.3
--- NOTE | 2023-11-16 10:25 | MHC.PC.OV ---
Vital Signs 11/16/23 10:25 Height 5 ft 5 in Weight 230 lb BMI 38.3 BP 142/88 H Blood Pressure Location Rt brachial Position Sitting Pulse 81 Pulse Source Pulse Oximeter Pulse Oximetry (%) 98 Oxygen Delivery Method Room Air Intake Visit Reasons: annual PE Allergies citalopram Allergy (Unknown, Verified 11/16/23 10:28) Unknown ibuprofen Allergy (Unknown, Verified 11/16/23 10:28) unknown loratadine Allergy (Unknown, Verified 11/16/23 10:28) unknown Medication List - Last Reconciled 11/16/23 by Jose Manuel Sarmiento MD [Blood pressure monitor large cuff] cholecalciferol (vitamin D3) 50 mcg PO DAILY Tobacco use date assessed: 11/16/23 Fall risk assessment: No Falls in past year Last assessed Fall Risk: 11/16/23 Dental Screening Dental Screen Date: 11/16/23 Did you have a dental visit in the last 12 months?: No Did you have a dental problem in the last 6 months where you did not have access to dental care?: No Was dental information given to patient?: No HPI annual PE HPI Details Patient is 68-year-old female with a history of bipolar disorder I see that she is not taking any medication at this time and is stable Pressure continued to be elevated, she is monitoring it at home as well And it is running around 140s systolic I am starting her on atenolol 25 mg once a day Lab order placed to be done fasting Mammogram was December of last year Patient have history of total hysterectomy secondary to heavy bleeding and fibroids Colonoscopy was October of last year She is also seeing Dr. Solis endocrinology for hyperparathyroidism Need to lose weight BMI is elevated Patient will return in 3 weeks for blood pressure monitoring and to go over her labs She is also complaining of random itching off and on, patient is not sure if it is because of anxiety. But there is no rash PFSH Medical History Vitamin D deficiency Bipolar disorder Obesity Non-toxic multinodular goiter Hyperparathyroidism Surgical History History of colectomy Hx of cholecystectomy History of section History of hysterectomy Family History Mother HTN (hypertension) Diabetes mellitus Cancer Family/Other HTN (hypertension) Social History Household Members: Family Household Members Other:: daughter, son Housing: House Alcohol intake: never Patient Tobacco Use Status: Never used Tobacco e-Cigarette/Vaping Use: Never Used Second Hand Smoke Exposure: No service: No Current occupational status: disabled Cognitive needs: No Hearing needs: No Vision needs: Yes Questionnaire PHQ-9 Over the last 2 weeks, how often have you been bothered by any of the following problems? 1. Little interest or pleasure in doing things: not at all 2. Feeling down, depressed, or hopeless: not at all 3. Trouble falling or staying asleep, or sleeping too much: not at all 4. Feeling tired or having little energy: more than half the days 5. Poor appetite or overeating: not at all 6. Feeling bad about yourself - or that you are a failure or have let yourself or your family down: not at all 7. Trouble concentrating on things, such as reading the newspaper or watching television: not at all 8. Moving or speaking so slowly that other people could have noticed. Or the opposite - being so fidgety or restless that you have been moving around a lot more than usual: not at all 9. Thoughts that you would be better off or of hurting yourself in some way: not at all Total score: 2 Depression Screening Interpretation: Negative Depression Screening Done: Yes 81361 - PHQ-9 Billing: Yes Source: Developed by Drs. Bala Farah, Dawn Chavarria, Mihai Mendiola and colleagues, with an educational siomara from [employer]. Thrive Questionnaire Date Thrive assessed: 11/16/23 I am a: Patient What is your living situation today?: I have a steady place to live Within the past 12 months, did the food you bought not last and you didn't have the money to get more?: Never true Within the past 12 months, did you worry whether your food would run out before you got money to buy more?: Never true Do you have trouble paying for medicines?: No Do you have trouble getting transportation to medical appointments?: No Do you have trouble paying your heating and electricity bill?: No Do you have trouble taking care of your child, family member or friend?: No Do you have trouble with day-to-day activities such as bathing, preparing meals, shopping, managing finances, etc.?: No Are you currently unemployed and looking for a job?: No Are you interested in more education?: No Please select the resources that you would like help with: Utilities Currently or been in a relationship where the following occur: No concerns reported THRIVE Score: 0 AUDIT C Alcohol Use Questionnaire (AUDIT-C) 1. How often do you have a drink containing alcohol?: Never 3. How often do you have six or more drinks on one occasion?: Never Total Score: 0 Score Reviewed/Action Taken: Yes GUY-7 AMB Questionnaire GUY-7 Date GUY - 7 assessed: 11/16/23 Feeling nervous, anxious, or on edge: 0 = Not at all Not being able to stop or control worryin = Not at all Worrying too much about different things: 0 = Not at all Trouble relaxin = Not at all Being so restless that it is hard to sit still: 0 = Not at all Becoming easily annoyed or irritable: 0 = Not at all Feeling afraid as if something awful might happen: 0 = Not at all Total GUY-7 score (0-4 normal; 5-9 mild; 10-14 moderate; 15-21 severe): 0 Source: Developed by Drs. Bala Farah, Dawn Chavarria, Mihai Mendiola and colleagues, with an educational siomara from [employer]. GUY-7 Assessment Billing GUY-7 Assessment Tool: GUY-7 Assessment 31122 Review of Systems Const Denies chills, Denies fever(s) and Denies headache(s) Eyes Denies blurry vision ENT Denies headache(s), Denies nasal discharge, Denies nasal obstruction, Denies odynophagia and Denies sinus pain Card Denies chest pain at rest and Denies chest pain with activity Resp Denies cough and Denies hemoptysis GI Denies diarrhea, Denies odynophagia, Denies vomiting and Denies hematemesis Reports as per HPI Musc Denies abnormal gait Skin/Breast Reports as per HPI Neuro Denies Neuro-related abnormal movements, Denies Abnormal speech present, Denies abnormal gait, Denies headache(s) and Denies Sensory deficit (Neuro) Psych Denies mood swings and Denies paranoia Endo Reports as per HPI Ashish/Lymph Reports as per HPI Aller/Immun Reports as per HPI Physical exam (Primary Care) Vital Signs: Last Vital Signs Pulse 81 11/16/23 10:25 BP 142/88 H 11/16/23 10:25 Pulse Ox 98 11/16/23 10:25 Oxygen Delivery Method Room Air 11/16/23 10:25 BMI result Body Mass Index 38.3 Tobacco/Smoking Status: Tobacco use Status Tobacco use date assessed 11/16/23 11/16/23 10:28 Patient Tobacco Use Status Never used Tobacco 11/16/23 10:28 e-Cigarette/Vaping Use Never Used 11/16/23 10:28 PHQ-9: PHQ-9 Score PHQ-9: Total score 2 11/16/23 10:28 Depression Screening Interpretation: Negative Thrive Assessment: Date of Thrive Assessment Date Thrive assessed 11/16/23 11/16/23 10:28 Currently or been in a relationship where the following occur: No concerns reported Const General: cooperative, comfortable and no acute distress Orientation/consciousness: patient oriented x3 HENMT Head: Yes normocephalic and Yes atraumatic Eyes General: appearance normal, both eyes and all related structures Pupils: Equal, round and reactive pupils present EOM: EOMs intact bilaterally Neck Neck: Yes supple and No lymphadenopathy Thyroid: Thyroid normal Lymphatic: no lymphadenopathy noted Chest Breast/axilla palpation: normal palpation of the breasts Resp Effort & Inspection: normal respiratory effort and able to speak in complete sentences Auscultation: clear to auscultation bilaterally Cardio Heart sounds: S1 normal heart sound present and S2 normal heart sound present GI Palpation (GI): Soft to palpation and nontender Auscultation: normal bowel sounds General: Yes no CVA tenderness Back/Spine/Pelvis Back: no CVA tenderness Skin General skin exam: elasticity normal and turgor normal Neuro General: patient oriented x3 and gait normal Cranial nerves: Yes Equal, round and reactive pupils present Speech: No Abnormal speech present Sensory Exam: No Sensory deficit (Neuro) Coordination: tandem gait normal and Romberg test negative Extrem General: Yes normal exam except as noted and No edema Assessment and Plan Assessment & Plan (1) Encounter for general adult medical examination with abnormal findings: Code(s): Z00.01 - Encounter for general adult medical examination with abnormal findings (2) Hypertension, essential: Code(s): I10 - Essential (primary) hypertension (3) Acid reflux: Code(s): K21.9 - Gastro-esophageal reflux disease without esophagitis Qualifiers: Esophagitis presence: without esophagitis Qualified Code(s): K21.9 - Gastro-esophageal reflux disease without esophagitis (4) Bipolar disorder: Code(s): F31.9 - Bipolar disorder, unspecified Qualifiers: Active/Remission status: in full remission Most recent bipolar episode type: mixed Qualified Code(s): F31.78 - Bipolar disorder, in full remission, most recent episode mixed (5) Hyperparathyroidism: Code(s): E21.3 - Hyperparathyroidism, unspecified (6) Obesity due to excess calories: Code(s): E66.09 - Other obesity due to excess calories Qualifiers: Body mass index: BMI 38.0-38.9 Obesity classification: adult class 2 (BMI 35 - 39.9) Serious obesity comorbidity presence: without serious comorbidity Qualified Code(s): E66.09 - Other obesity due to excess calories; Z68.38 - Body mass index [BMI] 38.0-38.9, adult Plan Patient is 68-year-old female with a history of bipolar disorder I see that she is not taking any medication at this time and is stable Pressure continued to be elevated, she is monitoring it at home as well And it is running around 140s systolic I am starting her on atenolol 25 mg once a day Lab order placed to be done fasting Mammogram was December of last year Patient have history of total hysterectomy secondary to heavy bleeding and fibroids Colonoscopy was October of last year She is also seeing Dr. Solis endocrinology for hyperparathyroidism Need to lose weight BMI is elevated Patient will return in 3 weeks for blood pressure monitoring and to go over her labs She is also complaining of random itching off and on, patient is not sure if it is because of anxiety. But there is no rash Orders: Orders Complete Blood Count Auto Diff Today E21.3 - Hyperparathyroidism, unspecified, E66.09 - Other obesity due to excess calories, F31.78 - Bipolar disorder, in full remission, most recent episode mixed, K21.9 - Gastro-esophageal reflux disease without esophagitis, Z00.01 - Encounter for general adult medical examination with abnormal findings, Z68.38 - Body mass index [BMI] 38.0-38.9, adult Lipid Panel Today E21.3 - Hyperparathyroidism, unspecified, E66.09 - Other obesity due to excess calories, F31.78 - Bipolar disorder, in full remission, most recent episode mixed, K21.9 - Gastro-esophageal reflux disease without esophagitis, Z00.01 - Encounter for general adult medical examination with abnormal findings, Z68.38 - Body mass index [BMI] 38.0-38.9, adult Comprehensive [place]. Panel Fast Today E21.3 - Hyperparathyroidism, unspecified, E66.09 - Other obesity due to excess calories, F31.78 - Bipolar disorder, in full remission, most recent episode mixed, K21.9 - Gastro-esophageal reflux disease without esophagitis, Z00.01 - Encounter for general adult medical examination with abnormal findings, Z68.38 - Body mass index [BMI] 38.0-38.9, adult TSH reflex Free T4 Today E21.3 - Hyperparathyroidism, unspecified, E66.09 - Other obesity due to excess calories, F31.78 - Bipolar disorder, in full remission, most recent episode mixed, K21.9 - Gastro-esophageal reflux disease without esophagitis, Z00.01 - Encounter for general adult medical examination with abnormal findings, Z68.38 - Body mass index [BMI] 38.0-38.9, adult Medications: New atenolol 25 mg PO DAILY 30 tabs 0RF Coding Level of Care Code Est Pt Level 3 (98283) Est Pt Prev Care >65y(59080) Diagnoses Encounter for general adult medical examination with abnormal findings Z00.01 Hypertension, essential I10 Gastroesophageal reflux disease without esophagitis K21.9 Esophagitis presence: without esophagitis Bipolar disorder, in full remission, most recent episode mixed F31.78 Active/Remission status: in full remission Most recent bipolar episode type: mixed Hyperparathyroidism E21.3 Class 2 obesity due to excess calories without serious comorbidity with body mass index (BMI) of 38.0 to 38.9 in adult E66.09; Z68.38 Body mass index: BMI 38.0-38.9 Obesity classification: adult class 2 (BMI 35 - 39.9) Serious obesity comorbidity presence: without serious comorbidity Additional Codes GUY-7 Assessment Billing - GUY-7 Assessment Tool: GUY-7 Assessment 43670 ([id number])
== END 2023-11-16 10:49 | disposition home or self-care (01) ==
PROVIDERS: PCP Internal Medicine; Visit Provider Internal Medicine
DX: Z00.00 Encounter for general adult medical examination without abnormal findings (principal); F31.78 Bipolar disorder, in full remission, most recent episode mixed; E21.3 Hyperparathyroidism, unspecified; I10 Essential (primary) hypertension; K21.9 Gastro-esophageal reflux disease without esophagitis; E66.09 Other obesity due to excess calories; Z68.38 Body mass index [BMI] 38.0-38.9, adult

== ENCOUNTER → 2023-11-16 10:21 | Outpatient (BNVA) | payer OTHER, SELFPAY | PROVIDERS: PCP Internal Medicine; Visit Provider Internal Medicine | DX: Z00.01 Encounter for general adult medical examination with abnormal findings (principal); I10 Essential (primary) hypertension; K21.9 Gastro-esophageal reflux disease without esophagitis; F31.78 Bipolar disorder, in full remission, most recent episode mixed; E21.3 Hyperparathyroidism, unspecified; E66.09 Other obesity due to excess calories; Z68.38 Body mass index [BMI] 38.0-38.9, adult | CPT/HCPCS: 96127; 99212 ==

== ENCOUNTER 2023-11-19 09:43 | Outpatient (REF) | payer OTHER, SELFPAY ==
[2023-11-19 13:31] LABS: MANUAL DIFF FLAG NO
[2023-11-19 13:35] LABS: Basophils Percent Auto 0.5 % (0-2); Eosinophils Absolute Auto 0.1 X10*3/uL (0.0-0.4); Eosinophils Percent Auto 1.8 % (0-4); Hematocrit 41.7 % (37.0-47.0); Hemoglobin 13.7 g/dl (12.0-16.0); Imm Gran Abs Auto 0.02 X10*3/uL (0.00-0.03); Imm Gran Pct Auto 0.3 % (0.0-0.4); Lymphocytes Absolute Auto 3.5 X10*3/uL (1.2-4.9); Lymphocytes Percent Auto 54.4 % (20-40); Mean Corpuscular HGB Conc 32.9 g/dl (31.0-35.0); Mean Corpuscular Hemoglobin 31.9 pg (27.0-33.0); Mean Corpuscular Volume 97.2 fL (80.0-98.0); Mean Platelet Volume 10.4 fL (9.4-12.3); Monocytes Absolute Auto 0.5 X10*3/uL (0.1-1.2); Monocytes Percent Auto 7.2 % (2-11); Neutrophils Absolute Auto 2.3 x10*3/uL (2.0-8.3); Neutrophils Percent Auto 35.8 % (45-73); Platelet Count 254 X10*3/uL (160-400); Red Blood Count 4.29 X10*6/uL (4.20-5.50); Red Cell Distribution Width 13.6 % (11.0-16.0); White Blood Count 6.5 X10*3/uL (4.8-10.8)
[2023-11-19 14:11] LABS: Alanine Aminotransferase 43 U/L (0-31); Alkaline Phosphatase 104 U/L (39-117); Anion Gap 10 (12-20); Aspartate Amino Transferase 32 U/L (5-31); Bilirubin Total 1.2 mg/dL (0.0-1.0); Blood Urea Nitrogen 13 mg/dL (9-16); Calcium 10.8 mg/dL (8.4-10.2); Carbon Dioxide 27 mmol/L (22-29); Chloride 107 mmol/L (96-108); Cholesterol 218 mg/dL (<200); Estimated Glomerular Filt Rate 53; Glucose Fasting 106 mg/dL (60-99); HDL Cholesterol 47 mg/dL (>40); LDL Cholesterol Calculated 145 mg/dL (<100); Potassium 4.1 mmol/L (3.3-5.1); Sodium 140 mmol/L (135-145); TSH reflex Free T4 1.74 uIU/mL (0.32-4.0); Total Protein 6.8 g/dL (6.5-8.0); Triglycerides 130 mg/dL (<150)
== END 2023-11-19 09:44 | disposition home or self-care (01) ==
LOC: HO.HMGCLDS 09:43
PROVIDERS: PCP Internal Medicine; Visit Provider Internal Medicine
DX: Z00.01 Encounter for general adult medical examination with abnormal findings (principal); K21.9 Gastro-esophageal reflux disease without esophagitis; E66.09 Other obesity due to excess calories; Z68.38 Body mass index [BMI] 38.0-38.9, adult; F31.78 Bipolar disorder, in full remission, most recent episode mixed; E21.3 Hyperparathyroidism, unspecified
CPT/HCPCS: 36415; 80053; 80061; 84443; 85025

== ENCOUNTER 2023-12-07 11:07 | Outpatient (AMB) | payer OTHER, SELFPAY ==
[2023-12-07 11:09] VITALS: BP 162/94; PULSE 91; O2SAT 99; BMI 39.3
--- NOTE | 2023-12-07 11:09 | MHC.PC.OV ---
Vital Signs 12/07/23 11:09 Height 5 ft 5 in Weight 236 lb 4 oz BMI 39.3 BP 162/94 H Blood Pressure Location Rt brachial Position Sitting Pulse 91 Pulse Source Pulse Oximeter Pulse Oximetry (%) 99 Oxygen Delivery Method Room Air Intake Visit Reasons: 3 week follow Allergies citalopram Allergy (Unknown, Verified 12/07/23 11:14) Unknown ibuprofen Allergy (Unknown, Verified 12/07/23 11:14) unknown loratadine Allergy (Unknown, Verified 12/07/23 11:14) unknown Medication List - Last Reconciled 12/07/23 by Jose Manuel Sarmiento MD atenolol 25 mg PO DAILY [Blood pressure monitor large cuff] Tobacco use date assessed: 12/07/23 Fall risk assessment: No Falls in past year Last assessed Fall Risk: 12/07/23 Dental Screening Dental Screen Date: 12/07/23 Did you have a dental visit in the last 12 months?: Yes Did you have a dental problem in the last 6 months where you did not have access to dental care?: No Was dental information given to patient?: Patient has dentist HPI 3 week follow HPI Details Labs reviewed Liver enzymes are slightly elevated Calcium continued to be elevated, patient is seeing endocrinology for that Blood pressure is still high, patient has not taken her medications this morning She is on atenolol 25 mg, I have told her to double the dose and finish the bottle And then start metoprolol hydrochlorothiazide 1 daily She has been monitoring her blood pressure every now and then, and tells me that it runs around 140 or above She will return in 3 months for follow-up appointment [facility] Medical History Vitamin D deficiency Bipolar disorder Obesity Non-toxic multinodular goiter Hyperparathyroidism Surgical History History of colectomy Hx of cholecystectomy History of section History of hysterectomy Family History Mother HTN (hypertension) Diabetes mellitus Cancer Family/Other HTN (hypertension) Social History Household Members: Family Household Members Other:: daughter, son Housing: House Alcohol intake: never Patient Tobacco Use Status: Never used Tobacco e-Cigarette/Vaping Use: Never Used Second Hand Smoke Exposure: No service: No Current occupational status: disabled Cognitive needs: No Hearing needs: No Vision needs: Yes Questionnaire Thrive Questionnaire Date Thrive assessed: 12/07/23 I am a: Patient What is your living situation today?: I have a steady place to live Within the past 12 months, did the food you bought not last and you didn't have the money to get more?: Never true Within the past 12 months, did you worry whether your food would run out before you got money to buy more?: Never true Do you have trouble paying for medicines?: No Do you have trouble getting transportation to medical appointments?: No Do you have trouble paying your heating and electricity bill?: No Do you have trouble taking care of your child, family member or friend?: No Do you have trouble with day-to-day activities such as bathing, preparing meals, shopping, managing finances, etc.?: No Are you currently unemployed and looking for a job?: No Are you interested in more education?: No Please select the resources that you would like help with: Utilities Currently or been in a relationship where the following occur: No concerns reported THRIVE Score: 0 AUDIT C Alcohol Use Questionnaire (AUDIT-C) 1. How often do you have a drink containing alcohol?: Never 3. How often do you have six or more drinks on one occasion?: Never Total Score: 0 Score Reviewed/Action Taken: Yes GUY-7 AMB Questionnaire GUY-7 Date GUY - 7 assessed: 11/16/23 Source: Developed by Drs. Bala Farah, Dawn Chavarria, Mihai Mendiola and colleagues, with an educational siomara from [employer]. Review of Systems Const Denies chills and Denies fever(s) ENT Denies epistaxis and Denies nasal discharge Card Denies chest pain Resp Denies chest congestion, Denies cough and Denies hemoptysis GI Denies diarrhea and Denies nausea Skin/Breast Denies rash Neuro Reports no additional complaints Psych Reports no additional complaints Endo Reports no additional complaints Physical exam (Primary Care) Vital Signs: Last Vital Signs Pulse 91 12/07/23 11:09 BP 162/94 H 12/07/23 11:09 Pulse Ox 99 12/07/23 11:09 Oxygen Delivery Method Room Air 10/08/24 11:09 BMI result Body Mass Index 39.3 Tobacco/Smoking Status: Tobacco use Status Tobacco use date assessed 12/07/23 12/07/23 11:16 Patient Tobacco Use Status Never used Tobacco 12/07/23 11:11 e-Cigarette/Vaping Use Never Used 12/07/23 11:11 Thrive Assessment: Date of Thrive Assessment Date Thrive assessed 12/07/23 12/07/23 11:16 Currently or been in a relationship where the following occur: No concerns reported Const General: cooperative, comfortable and no acute distress Orientation/consciousness: patient oriented x3 HENMT Head: Yes normocephalic Eyes General: appearance normal, both eyes and all related structures Neck Neck: Yes supple Resp Effort & Inspection: normal respiratory effort, no cough and no stridor Cardio Rhythm: regular rhythm Heart sounds: S1 normal heart sound present and S2 normal heart sound present Skin General skin exam: turgor normal Neuro General: patient oriented x3, tone normal and moves all extremities Extrem Right lower extremity: no edema Left lower extremity: no edema Coding Level of Care Code Est Pt Level 3 (58607) Complex EM visit Add On G2211 Diagnoses Hypertension, essential I10 Hyperparathyroidism E21.3 Assessment & Plan Assessment & Plan (1) Hypertension, essential: Code(s): I10 - Essential (primary) hypertension Category: Medical (2) Hyperparathyroidism: Code(s): E21.3 - Hyperparathyroidism, unspecified Category: Medical Plan Labs reviewed Liver enzymes are slightly elevated Calcium continued to be elevated, patient is seeing endocrinology for that Blood pressure is still high, patient has not taken her medications this morning She is on atenolol 25 mg, I have told her to double the dose and finish the bottle And then start metoprolol hydrochlorothiazide 1 daily She has been monitoring her blood pressure every now and then, and tells me that it runs around 140 or above She will return in 3 months for follow-up appointment Medications: New metoprolol ta-hydrochlorothiaz 50-25 mg 1 tab PO DAILY 90 tabs 0RF Discontinued atenolol Discontinued Reason: Doctor's Order 25 mg PO DAILY 30 tabs 0RF
== END 2023-12-07 11:38 | disposition home or self-care (01) ==
PROVIDERS: PCP Internal Medicine; Visit Provider Internal Medicine
DX: I10 Essential (primary) hypertension (principal); E21.3 Hyperparathyroidism, unspecified

== ENCOUNTER → 2023-12-07 11:07 | Outpatient (BNVA) | payer OTHER, SELFPAY | PROVIDERS: PCP Internal Medicine; Visit Provider Internal Medicine | DX: I10 Essential (primary) hypertension (principal); E21.3 Hyperparathyroidism, unspecified | CPT/HCPCS: 99212 ==

== ENCOUNTER 2024-02-15 11:12 | Outpatient (AMB) | payer OTHER, SELFPAY ==
--- NOTE | 2024-02-15 11:18 | HO.NEPHOV_ITS ---
Vital Signs 02/15/24 11:20 Height 5 ft 5 in Weight 228 lb 8 oz BMI 38.0 BP 122/80 Blood Pressure Location Lt brachial Position Sitting Pulse 96 Pulse Source Pulse Oximeter Pulse Oximetry (%) 98 Oxygen Delivery Method Room Air Intake Visit Reasons: INP: Essential (primary) hypertension-Conf Palliative Medicine Physician Required: No Accompanied by: Self / Same As Patient Allergies citalopram Allergy (Unknown, Verified 02/15/24 11:19) Unknown ibuprofen Allergy (Unknown, Verified 02/15/24 11:19) unknown loratadine Allergy (Unknown, Verified 02/15/24 11:19) unknown HPI Comments Details: I had the pleasure of seeing Gustavo who is a 68-year-old female with a history of bipolar disorder who is known to have hypertension for some time. She monitors her BP at home. She was on atenolol which was later changed to metoprolol/hctz. She is known to have hypercalcemia and has seen Dr Solis as well as Dr Rangel for hyperparathyroidism. She has H/O lithium in take in the past. Her blood pressure is better controlled. She has no H/O renal calculus. She has no CAD, Carotid stenosis, CVA, PAD, JAIR or CHF. She denies taking excess NSAID's but not excess sodium in the diet. She feels her body weight has been stable. Her last serum creatinine is 1.04 PFSH Medical History Vitamin D deficiency Bipolar disorder Obesity Non-toxic multinodular goiter Hyperparathyroidism Surgical History History of colectomy Hx of cholecystectomy History of section History of hysterectomy Family History Mother HTN (hypertension) Diabetes mellitus Cancer Family/Other HTN (hypertension) Social History Household Members: Family Household Members Other:: daughter, son Housing: House Alcohol intake: never Patient Tobacco Use Status: Never used Tobacco e-Cigarette/Vaping Use: Never Used Second Hand Smoke Exposure: No service: No Current occupational status: disabled Cognitive needs: No Hearing needs: No Vision needs: Yes Review of Systems Const All systems reviewed & are unremarkable except as noted in HPI and below Physical Exam Vital Signs: Last Vital Signs Pulse 96 02/15/24 11:20 BP 122/80 02/15/24 11:20 Pulse Ox 98 02/15/24 11:20 Oxygen Delivery Method Room Air 02/15/24 11:20 BMI result Body Mass Index 38.0 Const General: comfortable and no acute distress Orientation/consciousness: patient oriented x3 HEENT Head: Yes normocephalic Mouth: Normal oral and palatal mucosa present Eyes EOM: EOMs intact bilaterally Neck Neck: Yes supple Resp Auscultation: clear to auscultation bilaterally Cardio Jugular venous distension: no JVD Rate: regular rate GI Palpation (GI): Soft to palpation Auscultation: normal bowel sounds General: Yes no CVA tenderness Back/Spine/Pelvis Back: no CVA tenderness Skin General skin exam: no rashes or lesions noted Neuro General: patient oriented x3 and moves all extremities Extrem General: Yes no pedal edema Results Reviewed Nephrology Results: Hgb 13.7 g/dl (12.0-16.0) 11/19/23 WBC 6.5 X10*3/uL (4.8-10.8) 11/19/23 Plt Count 254 X10*3/uL (160-400) 11/19/23 Sodium 140 mmol/L (135-145) 11/19/23 Potassium 4.1 mmol/L (3.3-5.1) 11/19/23 Chloride 107 mmol/L (96-108) 11/19/23 Carbon Dioxide 27 mmol/L (22-29) 11/19/23 BUN 13 mg/dL (9-16) 11/19/23 Creatinine 1.04 mg/dL (0.5-1.4) 11/19/23 Calcium 10.8 mg/dL (8.4-10.2) H 11/19/23 Assessment & Plan Assessment & Plan (1) Hypertension, essential: Code(s): I10 - Essential (primary) hypertension Category: Medical (2) CKD (chronic kidney disease) stage 2, GFR 60-89 ml/min: Code(s): N18.2 - Chronic kidney disease, stage 2 (mild) Category: Medical Plan Ms Sherman has hypertension, hypercalcemia as well as mild CKD. Most likely her CKD is from lithium use. Her high calcium has been high which has been thought to be due to primary hyperparathyroidism even though she has taken lithium use. HCTZ is not an ideal medication for her hypertension control given hypercalcemia. I have ordered W/U including cr clearance. I plan to image her kidney, Doppler of her renal arteries as well as do a 24 hour BP monitor. She should maintain good hydration and avoid NSAID's. I did not make any medication changes today but discussed all these. Further management is pending evolving data Orders: Orders Protein Creatinine Ratio, Ur 3 Months I10 - Essential (primary) hypertension, N18.2 - Chronic kidney disease, stage 2 (mild) Calcium 3 Months I10 - Essential (primary) hypertension, N18.2 - Chronic kidney disease, stage 2 (mild) Blood Urea Nitrogen 3 Months I10 - Essential (primary) hypertension, N18.2 - Chronic kidney disease, stage 2 (mild) Creatinine 3 Months I10 - Essential (primary) hypertension, N18.2 - Chronic kidney disease, stage 2 (mild) Creatinine Clearance Urine 24U 3 Months I10 - Essential (primary) hypertension, N18.2 - Chronic kidney disease, stage 2 (mild) Immunofixation Pnl, Serum 3 Months I10 - Essential (primary) hypertension, N18.2 - Chronic kidney disease, stage 2 (mild) Electrolytes 3 Months I10 - Essential (primary) hypertension, N18.2 - Chronic kidney disease, stage 2 (mild) Parathyroid Hormone Intact 3 Months I10 - Essential (primary) hypertension, N18.2 - Chronic kidney disease, stage 2 (mild) Coding Level of Care Code New Pt Level 4 (76614) Diagnoses Hypertension, essential I10 CKD (chronic kidney disease) stage 2, GFR 60-89 ml/min N18.2
[2024-02-15 11:20] VITALS: BP 122/80; PULSE 96; O2SAT 98; BMI 38.0
== END 2024-02-15 11:49 | disposition home or self-care (01) ==
PROVIDERS: PCP Internal Medicine; Referring Provider Internal Medicine; Visit Provider Internal Medicine Nephrology
DX: I12.9 Hypertensive chronic kidney disease with stage 1 through stage 4 chronic kidney disease, or unspecified chronic kidney disease (principal); N18.2 Chronic kidney disease, stage 2 (mild)
CPT/HCPCS: 99204

== ENCOUNTER → 2024-02-15 11:12 | Outpatient (BNVA) | payer OTHER, SELFPAY | PROVIDERS: PCP Internal Medicine; Referring Provider Internal Medicine; Visit Provider Internal Medicine Nephrology | DX: I12.9 Hypertensive chronic kidney disease with stage 1 through stage 4 chronic kidney disease, or unspecified chronic kidney disease (principal); N18.2 Chronic kidney disease, stage 2 (mild) | CPT/HCPCS: 99202 ==

== ENCOUNTER 2024-02-22 10:05 | Outpatient (REF) | payer OTHER, SELFPAY | END 2024-02-22 10:06 | disposition home or self-care (01) | LOC: HO.MAMMO 10:05 | PROVIDERS: PCP Internal Medicine; Visit Provider Internal Medicine | DX: Z12.31 Encounter for screening mammogram for malignant neoplasm of breast (principal) | CPT/HCPCS: 77063; 77067 ==

== ENCOUNTER → 2024-02-22 10:45 | Outpatient (BNV) | payer OTHER, SELFPAY | PROVIDERS: PCP Internal Medicine; Visit Provider Internal Medicine | DX: Z12.31 Encounter for screening mammogram for malignant neoplasm of breast (principal) | CPT/HCPCS: 77063; 77067 ==

== ENCOUNTER 2024-03-10 10:11 | Outpatient (REF) | payer OTHER, SELFPAY ==
[2024-03-10 13:19] LABS: Alanine Aminotransferase 78 U/L (0-31); Albumin Level 4.3 g/dL (3.5-5.0); Alkaline Phosphatase 123 U/L (39-117); Aspartate Amino Transferase 67 U/L (5-31); Bilirubin Direct 0.3 mg/dL (0.0-0.5); Bilirubin Total 1.3 mg/dL (0.0-1.0); Total Protein 7.6 g/dL (6.5-8.0)
[2024-03-10 13:24] LABS: Estimated Average Glucose 131 mg/dL; Hemoglobin A1c % 6.2 % (<6.0); Total Hemoglobin (HGBA1C) 3788.1417 umol/L
== END 2024-03-10 10:12 | disposition home or self-care (01) ==
LOC: HO.HMGCLDS 10:11
PROVIDERS: PCP Internal Medicine; Visit Provider Internal Medicine
DX: R79.89 Other specified abnormal findings of blood chemistry (principal); E55.9 Vitamin D deficiency, unspecified; G47.9 Sleep disorder, unspecified; E66.09 Other obesity due to excess calories; Z68.38 Body mass index [BMI] 38.0-38.9, adult; I12.9 Hypertensive chronic kidney disease with stage 1 through stage 4 chronic kidney disease, or unspecified chronic kidney disease; N18.2 Chronic kidney disease, stage 2 (mild); R73.03 Prediabetes
CPT/HCPCS: 36415; 80076; 83036; 96127; 99212

== ENCOUNTER 2024-03-10 10:11 | Outpatient (AMB) | payer OTHER, SELFPAY ==
[2024-03-10 10:17] VITALS: BP 126/82; PULSE 88; O2SAT 96; BMI 38.0
--- NOTE | 2024-03-10 10:17 | A.OFFPC_ITS ---
Vital Signs 03/10/24 10:17 Height 5 ft 5 in Weight 228 lb 2 oz BMI 38.0 BP 126/82 Blood Pressure Location Rt brachial Position Sitting Pulse 88 Pulse Source Pulse Oximeter Pulse Oximetry (%) 96 Oxygen Delivery Method Room Air Intake Visit Reasons: 3 month follow up Allergies citalopram Allergy (Unknown, Verified 02/15/24 11:19) Unknown ibuprofen Allergy (Unknown, Verified 02/15/24 11:19) unknown loratadine Allergy (Unknown, Verified 02/15/24 11:19) unknown Medication List - Last Reconciled 03/10/24 by Jose Manuel Sarmiento MD [Blood pressure monitor large cuff] metoprolol ta-hydrochlorothiaz 50-25 mg 1 tab PO DAILY Tobacco use date assessed: 12/07/23 Dental Screening Dental Screen Date: 12/07/23 HPI 3 month follow up HPI Details - The patient is a 68-year-old female pr esenting with elevated liver enzymes. - Persistently high liver enzymes withou t prior ultrasound evaluation. - CT scan of abdomen planned by endocrin ologist before she go through parathyroid surgery - The patient is prediabetic, requiring periodic monitoring of glucose levels. - Previous blood pressure readings indic ate effective management. - The patient is seeing an endocrinologi st for hyperparathyroidism management, with surgery under consideration. - she is now seeing union steward for the management of blood pressure, I see some labs ordered by them to be done in April Plan A CT scan of the abdomen will be performed to screen for any gastric issues, order will be placed by Dr. David keep bureau director surgeon before parathyroid surgery. That will also evaluate elevated liver as her liver enzymes are elevated Blood glucose levels will be checked to monitor prediabetes, and existing hypertension is being well-managed with current treatment through Nephrology. She also have a neurology appointment coming up for difficulty sleeping. Patient Instructions - Proceed with the CT scan of the abdome n as scheduled. - Complete today's blood tests for liver enzyme and sugar level monitoring. - Maintain your blood pressure medicatio n regimen as prescribed. - Attend your upcoming appointments with the bureau director, kidney doctor, and neurologist. - Inform us of any changes in your sympt oms or any new concerns. Review of Systems - Endocrine: Reports being prediabetic. - Cardiovascular: Denies any issues; blo od pressure is well-controlled. - General: No fever no chills - Neurological: No headaches no dizziness - Ear nose throat: No sore throat no hearing difficulty no ear pain - Cardiovascular: No syncope, no chest pain, no palpitations - Gastrointestinal: No nausea vomiting or diarrhea - Endocrine: No polyuria polydipsia no heat intolerance - Genitourinary: No dysuria , no blood in urine Physical Exam General: No acute distress HEENT: No acute findings Neck: Supple Respiratory system: Able to talk in full sentences, no audible wheeze cardiovascular: S1-S2 regular in rate and rhythm, blood pressure is very good, 120 Gastrointestinal: Pain in the stomach Extremities: No new findings HEDGE [employer]D PRINCIPAL: Alert awake oriented x3 motor sensory intact Skin: Normal turgor PFSH Medical History Vitamin D deficiency Bipolar disorder Obesity Non-toxic multinodular goiter Hyperparathyroidism Surgical History History of colectomy Hx of cholecystectomy History of section History of hysterectomy Family History Mother HTN (hypertension) Diabetes mellitus Cancer Family/Other HTN (hypertension) Social History Household Members: Family Household Members Other:: daughter, son Housing: House Alcohol intake: never Patient Tobacco Use Status: Never used Tobacco e-Cigarette/Vaping Use: Never Used Second Hand Smoke Exposure: No service: No Current occupational status: disabled Cognitive needs: No Hearing needs: No Vision needs: Yes Questionnaire PHQ-9 Over the last 2 weeks, how often have you been bothered by any of the following problems? 1. Little interest or pleasure in doing things: not at all 2. Feeling down, depressed, or hopeless: not at all 3. Trouble falling or staying asleep, or sleeping too much: not at all 4. Feeling tired or having little energy: not at all 5. Poor appetite or overeating: not at all 6. Feeling bad about yourself - or that you are a failure or have let yourself or your family down: not at all 7. Trouble concentrating on things, such as reading the newspaper or watching television: not at all 8. Moving or speaking so slowly that other people could have noticed. Or the opposite - being so fidgety or restless that you have been moving around a lot more than usual: not at all 9. Thoughts that you would be better off or of hurting yourself in some way: not at all Total score: 0 Depression Screening Interpretation: Negative Depression Screening Done: Yes [id number] - PHQ-9 Billing: Yes Source: Developed by Drs. Bala Farah, Dawn Chavarria, Mihai Mendiola and colleagues, with an educational siomara from [employer]. Thrive Questionnaire Date Thrive assessed: 03/10/24 I am a: Patient What is your living situation today?: I have a steady place to live Within the past 12 months, did the food you bought not last and you didn't have the money to get more?: Sometimes True Within the past 12 months, did you worry whether your food would run out before you got money to buy more?: Never true Do you have trouble paying for medicines?: No Do you have trouble getting transportation to medical appointments?: No Do you have trouble paying your heating and electricity bill?: Yes Do you have trouble taking care of your child, family member or friend?: No Do you have trouble with day-to-day activities such as bathing, preparing meals, shopping, managing finances, etc.?: No Are you currently unemployed and looking for a job?: No Are you interested in more education?: No Please select the resources that you would like help with: Utilities Currently or been in a relationship where the following occur: No concerns reported THRIVE Score: 2 AUDIT C Alcohol Use Questionnaire (AUDIT-C) 1. How often do you have a drink containing alcohol?: Never 3. How often do you have six or more drinks on one occasion?: Never Total Score: 0 Score Reviewed/Action Taken: Yes GUY-7 AMB Questionnaire GUY-7 Date GUY - 7 assessed: 03/10/24 Feeling nervous, anxious, or on edge: 0 = Not at all Not being able to stop or control worryin = Not at all Worrying too much about different things: 0 = Not at all Trouble relaxin = Not at all Being so restless that it is hard to sit still: 0 = Not at all Becoming easily annoyed or irritable: 0 = Not at all Feeling afraid as if something awful might happen: 0 = Not at all Total GUY-7 score (0-4 normal; 5-9 mild; 10-14 moderate; 15-21 severe): 0 Source: Developed by Drs. Bala Farah, Dawn Chavarria, Mihai Mendiola and colleagues, with an educational siomara from [employer]. GUY-7 Assessment Billing GUY-7 Assessment Tool: GUY-7 Assessment 21969 Physical exam (Primary Care) Vital Signs: Last Vital Signs Pulse 88 03/10/24 10:17 BP 126/82 03/10/24 10:17 Pulse Ox 96 03/10/24 10:17 Oxygen Delivery Method Room Air 03/10/24 10:17 BMI result Body Mass Index 38.0 Tobacco/Smoking Status: Tobacco use Status Tobacco use date assessed 12/07/23 03/10/24 10:17 Patient Tobacco Use Status Never used Tobacco 03/10/24 10:17 e-Cigarette/Vaping Use Never Used 03/10/24 10:17 PHQ-9: PHQ-9 Score PHQ-9: Total score 0 03/10/24 10:32 Depression Screening Interpretation: Negative Thrive Assessment: Date of Thrive Assessment Date Thrive assessed 03/10/24 03/10/24 10:21 Currently or been in a relationship where the following occur: No concerns reported Coding Level of Care Code Est Pt Level 4 (46312) Diagnoses LFT elevation R79.89 Vitamin D deficiency E55.9 Difficulty sleeping G47.9 Class 2 obesity due to excess calories without serious comorbidity with body mass index (BMI) of 38.0 to 38.9 in adult E66.09; Z68.38 Body mass index: BMI 38.0-38.9 Obesity classification: adult class 2 (BMI 35 - 39.9) Serious obesity comorbidity presence: without serious comorbidity Elevated blood sugar R73.9 Hypertension, essential I10 CKD (chronic kidney disease) stage 2, GFR 60-89 ml/min N18.2 Additional Codes GUY-7 Assessment Billing - GUY-7 Assessment Tool: GUY-7 Assessment 77592 ([id number]) PHQ-9 - 97898 - PHQ-9 Billing: Yes ([id number]) Assessment & Plan Assessment & Plan (1) LFT elevation: Code(s): R79.89 - Other specified abnormal findings of blood chemistry Category: Medical (2) Vitamin D deficiency: Code(s): E55.9 - Vitamin D deficiency, unspecified Category: Medical (3) Difficulty sleeping: Code(s): G47.9 - Sleep disorder, unspecified Category: Medical (4) Obesity due to excess calories: Code(s): E66.09 - Other obesity due to excess calories Category: Medical Qualifiers: Body mass index: BMI 38.0-38.9 Obesity classification: adult class 2 (BMI 35 - 39.9) Serious obesity comorbidity presence: without serious comorbidity Qualified Code(s): E66.09 - Other obesity due to excess calories; Z68.38 - Body mass index [BMI] 38.0-38.9, adult (5) Elevated blood sugar: Code(s): R73.9 - Hyperglycemia, unspecified Category: Medical (6) Hypertension, essential: Code(s): I10 - Essential (primary) hypertension Category: Medical (7) CKD (chronic kidney disease) stage 2, GFR 60-89 ml/min: Code(s): N18.2 - Chronic kidney disease, stage 2 (mild) Category: Medical Plan - The patient is a 68-year-old female presenting with elevated liver enzymes. - Persistently high liver enzymes without prior ultrasound evaluation. - CT scan of abdomen planned by bureau director before she go through parathyroid surgery - The patient is prediabetic, requiring periodic monitoring of glucose levels. - Previous blood pressure readings indicate effective management. - The patient is seeing an bureau director for hyperparathyroidism management, with surgery under consideration. - she is now seeing union steward for the management of blood pressure, I see some labs ordered by them to be done in April Plan A CT scan of the abdomen will be performed to screen for any gastric issues, order will be placed by Dr. David keep bureau director surgeon before parathyroid surgery. That will also evaluate elevated liver as her liver enzymes are elevated Blood glucose levels will be checked to monitor prediabetes, and existing hypertension is being well-managed with current treatment through Nephrology. She also have a neurology appointment coming up for difficulty sleeping. Patient Instructions - Proceed with the CT scan of the abdomen as scheduled. - Complete today's blood tests for liver enzyme and sugar level monitoring. - Maintain your blood pressure medication regimen as prescribed. - Attend your upcoming appointments with the bureau director, kidney doctor, and neurologist. - Inform us of any changes in your symptoms or any new concerns. - psychiatric care through Psychiatry Orders: Orders Hemoglobin A1c Today R73.9 - Hyperglycemia, unspecified Liver Panel Today R79.89 - Other specified abnormal findings of blood chemistry
== END 2024-03-10 13:05 | disposition home or self-care (01) ==
PROVIDERS: PCP Internal Medicine; Visit Provider Internal Medicine
DX: I12.9 Hypertensive chronic kidney disease with stage 1 through stage 4 chronic kidney disease, or unspecified chronic kidney disease (principal); N18.2 Chronic kidney disease, stage 2 (mild); E66.09 Other obesity due to excess calories; Z68.38 Body mass index [BMI] 38.0-38.9, adult; E55.9 Vitamin D deficiency, unspecified; G47.9 Sleep disorder, unspecified; R73.9 Hyperglycemia, unspecified

== ENCOUNTER 2024-05-16 11:02 | Outpatient (AMB) | payer OTHER, SELFPAY ==
[2024-05-16 11:04] VITALS: BP 140/90; PULSE 88; O2SAT 97; BMI 37.1
--- NOTE | 2024-05-16 11:04 | HO.NEPHOV ---
Vital Signs 05/16/24 11:04 Height 5 ft 5 in Weight 223 lb BMI 37.1 BP 140/90 H Blood Pressure Location Rt brachial Position Sitting Pulse 88 Pulse Source Pulse Oximeter Pulse Oximetry (%) 97 Oxygen Delivery Method Room Air Intake Visit Reasons: Follow Up 3mo-Conf Director Ambulatory Required: No Allergies citalopram Allergy (Unknown, Verified 05/16/24 11:06) Unknown ibuprofen Allergy (Unknown, Verified 05/16/24 11:06) unknown loratadine Allergy (Unknown, Verified 05/16/24 11:06) unknown Do you need a note to return to daycare/school/sports/work: No HPI Comments Details: I had the pleasure of seeing Gustavo who is a 68-year-old female with a history of bipolar disorder who is known to have hypertension for some time. She monitors her BP at home. She was on atenolol which was later changed to metoprolol/hctz. She is known to have hypercalcemia and has seen Dr Solis as well as Dr Rangel for hyperparathyroidism. She has H/O lithium in take in the past. Her blood pressure is better controlled but has not been taking HCTZ as she is worried about high blood calcium. She has no H/O renal calculus. She has no CAD, Carotid stenosis, CVA, PAD, JAIR or CHF. She denies taking excess NSAID's but not excess sodium in the diet. She feels her body weight has been stable. Her last serum creatinine is 1.04 PFSH Medical History Vitamin D deficiency Bipolar disorder Obesity Non-toxic multinodular goiter Hyperparathyroidism Surgical History History of colectomy Hx of cholecystectomy History of section History of hysterectomy Family History Mother HTN (hypertension) Diabetes mellitus Cancer Family/Other HTN (hypertension) Social History Household Members: Family Household Members Other:: daughter, son Housing: House Alcohol intake: never Patient Tobacco Use Status: Never used Tobacco e-Cigarette/Vaping Use: Never Used Second Hand Smoke Exposure: No service: No Current occupational status: disabled Cognitive needs: No Hearing needs: No Vision needs: Yes Review of Systems Const All systems reviewed & are unremarkable except as noted in HPI and below Physical Exam Vital Signs: Last Vital Signs Pulse 88 05/16/24 11:04 BP 148/92 H 05/16/24 11:04 Pulse Ox 97 05/16/24 11:04 Oxygen Delivery Method Room Air 05/16/24 11:04 BMI result Body Mass Index 37.1 Const General: comfortable and no acute distress Orientation/consciousness: patient oriented x3 HEENT Head: Yes normocephalic Mouth: Normal oral and palatal mucosa present Eyes EOM: EOMs intact bilaterally Neck Neck: Yes supple Resp Auscultation: clear to auscultation bilaterally Cardio Jugular venous distension: no JVD Rate: regular rate GI Palpation (GI): Soft to palpation Auscultation: normal bowel sounds General: Yes no CVA tenderness Back/Spine/Pelvis Back: no CVA tenderness Skin General skin exam: no rashes or lesions noted Neuro General: patient oriented x3 and moves all extremities Extrem General: Yes no pedal edema Results Reviewed Nephrology Results: Hgb 13.7 g/dl (12.0-16.0) 11/19/23 WBC 6.5 X10*3/uL (4.8-10.8) 11/19/23 Plt Count 254 X10*3/uL (160-400) 11/19/23 Sodium 140 mmol/L (135-145) 11/19/23 Potassium 4.1 mmol/L (3.3-5.1) 11/19/23 Chloride 107 mmol/L (96-108) 11/19/23 Carbon Dioxide 27 mmol/L (22-29) 11/19/23 BUN 13 mg/dL (9-16) 11/19/23 Creatinine 1.04 mg/dL (0.5-1.4) 11/19/23 Calcium 10.8 mg/dL (8.4-10.2) H 11/19/23 Assessment & Plan Assessment & Plan (1) CKD (chronic kidney disease) stage 2, GFR 60-89 ml/min: Code(s): N18.2 - Chronic kidney disease, stage 2 (mild) Category: Medical (2) Hypertension, essential: Code(s): I10 - Essential (primary) hypertension Category: Medical (3) Hyperparathyroidism: Code(s): E21.3 - Hyperparathyroidism, unspecified Category: Medical (4) Hypercalcemia: Code(s): E83.52 - Hypercalcemia Category: Medical Plan Ms Sherman has hypertension, hypercalcemia as well as mild CKD. Most likely her CKD is from lithium use. Her high calcium has been high which has been thought to be due to primary hyperparathyroidism even though she has taken lithium use. HCTZ is not an ideal medication for her hypertension control given hypercalcemia. So I stopped it and left her on metoprolol. I plan to image her kidney, Doppler of her renal arteries as well as do a 24 hour BP monitor, with time. She should maintain good hydration and avoid NSAID's. I did not make any medication changes today but discussed all these. Further management is pending evolving data Orders: Orders Creatinine 4 Months E83.52 - Hypercalcemia, I10 - Essential (primary) hypertension, N18.2 - Chronic kidney disease, stage 2 (mild) Blood Urea Nitrogen 4 Months E83.52 - Hypercalcemia, I10 - Essential (primary) hypertension, N18.2 - Chronic kidney disease, stage 2 (mild) Parathyroid Hormone Intact 4 Months E83.52 - Hypercalcemia, I10 - Essential (primary) hypertension, N18.2 - Chronic kidney disease, stage 2 (mild) Electrolytes 4 Months E83.52 - Hypercalcemia, I10 - Essential (primary) hypertension, N18.2 - Chronic kidney disease, stage 2 (mild) Calcium 4 Months E83.52 - Hypercalcemia, I10 - Essential (primary) hypertension, N18.2 - Chronic kidney disease, stage 2 (mild) Medications: New metoprolol succinate ER 50 mg PO DAILY 90 tabs 3RF Discontinued metoprolol ta-hydrochlorothiaz 50-25 mg Discontinued Reason: Doctor's Order 1 tab PO DAILY 90 tabs 0RF Coding Level of Care Code Est Pt Level 4 (29376) Diagnoses CKD (chronic kidney disease) stage 2, GFR 60-89 ml/min N18.2 Hypertension, essential I10 Hyperparathyroidism E21.3 Hypercalcemia E83.52
== END 2024-05-16 11:20 | disposition home or self-care (01) ==
LOC: HO.HKAS 11:02
PROVIDERS: PCP Internal Medicine; Visit Provider Internal Medicine Nephrology
DX: I12.9 Hypertensive chronic kidney disease with stage 1 through stage 4 chronic kidney disease, or unspecified chronic kidney disease (principal); N18.2 Chronic kidney disease, stage 2 (mild); E21.3 Hyperparathyroidism, unspecified
CPT/HCPCS: 99214

== ENCOUNTER → 2024-05-16 11:02 | Outpatient (BNVA) | payer OTHER, SELFPAY | PROVIDERS: PCP Internal Medicine; Visit Provider Internal Medicine Nephrology | DX: I12.9 Hypertensive chronic kidney disease with stage 1 through stage 4 chronic kidney disease, or unspecified chronic kidney disease (principal); N18.2 Chronic kidney disease, stage 2 (mild); E21.3 Hyperparathyroidism, unspecified; E83.52 Hypercalcemia | CPT/HCPCS: 99212 ==

== ENCOUNTER 2024-08-04 08:17 | Outpatient (REF) | payer OTHER, SELFPAY ==
[2024-08-04 10:12] LABS: MANUAL DIFF FLAG NO
[2024-08-04 10:26] LABS: Basophils Percent Auto 0.3 % (0-2); Eosinophils Absolute Auto 0.2 X10*3/uL (0.0-0.4); Eosinophils Percent Auto 2.3 % (0-4); Hematocrit 38.4 % (37.0-47.0); Hemoglobin 12.9 g/dl (12.0-16.0); Imm Gran Abs Auto 0.05 X10*3/uL (0.00-0.03); Imm Gran Pct Auto 0.8 % (0.0-0.4); Lymphocytes Absolute Auto 2.8 X10*3/uL (1.2-4.9); Lymphocytes Percent Auto 41.6 % (20-40); Mean Corpuscular HGB Conc 33.6 g/dl (31.0-35.0); Mean Corpuscular Hemoglobin 31.9 pg (27.0-33.0); Mean Platelet Volume 10.2 fL (9.4-12.3); Monocytes Absolute Auto 0.5 X10*3/uL (0.1-1.2); Monocytes Percent Auto 7.7 % (2-11); Neutrophils Absolute Auto 3.1 x10*3/uL (2.0-8.3); Neutrophils Percent Auto 47.3 % (45-73); Platelet Count 266 X10*3/uL (160-400); Red Blood Count 4.04 X10*6/uL (4.20-5.50); Red Cell Distribution Width 12.9 % (11.0-16.0); White Blood Count 6.6 X10*3/uL (4.8-10.8)
[2024-08-04 10:40] LABS: Estimated Average Glucose 134 mg/dL; Hemoglobin A1C 151.4129 umol/L; Hemoglobin A1c % 6.3 % (<6.0)
[2024-08-04 10:55] LABS: Alanine Aminotransferase 55 U/L (0-31); Albumin Level 3.9 g/dL (3.5-5.0); Anion Gap 10 (12-20); Aspartate Amino Transferase 44 U/L (5-31); Blood Urea Nitrogen 11 mg/dL (9-16); Calcium 9.1 mg/dL (8.4-10.2); Carbon Dioxide 25 mmol/L (22-29); Chloride 111 mmol/L (96-108); Estimated Glomerular Filt Rate > 60; Glucose Random 109 mg/dL (60-115); Potassium 3.8 mmol/L (3.3-5.1); Sodium 142 mmol/L (135-145); Total Protein 6.4 g/dL (6.5-8.0)
[2024-08-04 11:59] LABS: Alkaline Phosphatase 127 U/L (39-117)
[2024-08-04 12:21] LABS: Creatinine Urine 186.18 mg/dL; Microalbum/Creatinine Ratio Ur 11.8 ug/mg cr (<30)
[2024-08-06 23:58] LABS: LDL Cholesterol Direct 129 mg/dL (<100)
== END 2024-08-04 08:18 | disposition home or self-care (01) ==
LOC: HO.HMGCLDS 08:17
PROVIDERS: PCP Internal Medicine; Visit Provider Internal Medicine
DX: R79.89 Other specified abnormal findings of blood chemistry (principal); R73.03 Prediabetes; I12.9 Hypertensive chronic kidney disease with stage 1 through stage 4 chronic kidney disease, or unspecified chronic kidney disease; N18.2 Chronic kidney disease, stage 2 (mild); F31.78 Bipolar disorder, in full remission, most recent episode mixed; E66.09 Other obesity due to excess calories; Z68.38 Body mass index [BMI] 38.0-38.9, adult
CPT/HCPCS: 36415; 80053; 82043; 82570; 83036; 83721; 85025; 99212

== ENCOUNTER 2024-08-04 08:17 | Outpatient (AMB) | payer OTHER, SELFPAY ==
--- NOTE | 2024-08-04 08:23 | MHC.PC.OV ---
Vital Signs 08/04/24 08:24 Height 5 ft 5 in Weight 219 lb 2 oz BMI 36.5 BP 122/90 H Blood Pressure Location Rt brachial Position Sitting Respiration 18 Pulse 65 Pulse Source Pulse Oximeter Temp 98.1 F Temp Source Oral Pulse Oximetry (%) 97 Oxygen Delivery Method Room Air Oxygen Flow Rate 97 Intake Visit Reasons: f/u Allergies citalopram Allergy (Unknown, Verified 08/04/24 08:29) Unknown ibuprofen Allergy (Unknown, Verified 08/04/24 08:29) unknown loratadine Allergy (Unknown, Verified 08/04/24 08:29) unknown Medication List - Last Reconciled 08/04/24 by Jose Manuel Sarmiento MD [Blood pressure monitor large cuff] metoprolol succinate ER 50 mg PO DAILY Tobacco use date assessed: 12/07/23 Dental Screening Dental Screen Date: 12/07/23 HPI f/u HPI Details History - The patient is a 69-year-old female presenting for a follow-up visit. - She has been managing her Essential Hypertension with metoprolol since prior to March of this year. - The patient's previous liver enzyme tests were elevated, need repeat labs - The patient carries a risk for the development of Diabetes Mellitus Type 2, given her family history, as her mother had diabetes. Patient is prediabetic last hemoglobin A1c was 6.2 - She has made lifestyle changes, including weight loss through increased physical activity such as walking and dietary adjustments focused on healthy eating, both of which have positively impacted her liver enzyme levels and overall health. Medical History: - Essential Hypertension - Elevated Liver Enzymes - Risk factor: Family history of Diabetes Mellitus Type 2 - obesity Medications: - Metoprolol: Prescribed for the management of Essential Hypertension. Social History: - Resides in [place]. - Engages in regular walking for exercise. - Focuses on a healthy diet for weight management. - Reports successful weight loss as part of her lifestyle changes. Family History: - Family history of Diabetes Mellitus Type 2 (Mother). Diagnostic Results: - Labs: Elevated liver enzymes noted in previous evaluations. - Tests and diagnostics scheduled: Blood tests upcoming in August to monitor kidney function, liver enzymes, and blood glucose levels. Problem List - Essential Hypertension - Elevated Liver Enzymes - Risk of Diabetes Mellitus Type 2 - obesity - psychiatric illness stable Patient Instructions - Continue taking metoprolol as prescribed for blood pressure management. - Maintain current exercise regimen and healthy diet to aid in weight management and liver health. - Avoid excessive use of Tylenol; only use as needed due to kidney concerns. - Schedule and complete the blood tests before the upcoming visit, particularly to monitor liver enzymes and blood glucose levels. - Return for follow-up on November 22 for a physical exam. - Monitor blood pressure at home and report any significant changes. Review of Systems - General: No fever no chills - Neurological: No headaches no dizziness - Ear nose throat: No sore throat no hearing difficulty no ear pain - Cardiovascular: No syncope, no chest pain, no palpitations - Gastrointestinal: No nausea vomiting or diarrhea - Endocrine: No polyuria polydipsia no heat intolerance - Genitourinary: No dysuria , no blood in urine Physical Exam General: No acute distress HEENT: No acute findings Neck: Supple Respiratory system: Able to talk in full sentences, no audible wheeze Cardiovascular: S1-S2 regular in rate and rhythm Gastrointestinal: No pain, no nausea, vomiting, diarrhea Extremities: No new findings ONLINE COMMUNITY MANAGER: Alert awake oriented x3 motor sensory intact Skin: Normal turgor [facility] Medical History Vitamin D deficiency Bipolar disorder Obesity Non-toxic multinodular goiter Hyperparathyroidism Surgical History History of colectomy Hx of cholecystectomy History of section History of hysterectomy Family History Mother HTN (hypertension) Diabetes mellitus Cancer Family/Other HTN (hypertension) Social History Household Members: Family Household Members Other:: daughter, son Housing: House Alcohol intake: never Patient Tobacco Use Status: Never used Tobacco e-Cigarette/Vaping Use: Never Used Second Hand Smoke Exposure: No service: No Current occupational status: disabled Cognitive needs: No Hearing needs: No Vision needs: Yes Questionnaire Thrive Questionnaire Date Thrive assessed: 03/10/24 I am a: Patient What is your living situation today?: I have a steady place to live Within the past 12 months, did the food you bought not last and you didn't have the money to get more?: Sometimes True Within the past 12 months, did you worry whether your food would run out before you got money to buy more?: Never true Do you have trouble paying for medicines?: No Do you have trouble getting transportation to medical appointments?: No Do you have trouble paying your heating and electricity bill?: Yes Do you have trouble taking care of your child, family member or friend?: No Do you have trouble with day-to-day activities such as bathing, preparing meals, shopping, managing finances, etc.?: No Are you currently unemployed and looking for a job?: No Are you interested in more education?: No Please select the resources that you would like help with: Utilities Currently or been in a relationship where the following occur: No concerns reported THRIVE Score: 2 GUY-7 AMB Questionnaire GUY-7 Date GUY - 7 assessed: 03/10/24 Source: Developed by Drs. Bala Farah, Dawn Chavarria, Mihai Mendiola and colleagues, with an educational siomara from [employer]. Physical exam (Primary Care) Vital Signs: Last Vital Signs Temp 98.1 F 08/04/24 08:24 Pulse 65 08/04/24 08:24 Resp 18 08/04/24 08:24 BP 122/90 H 08/04/24 08:24 Pulse Ox 97 08/04/24 08:24 Oxygen Delivery Method Room Air 08/04/24 08:24 Oxygen Flow Rate 97 08/04/24 08:24 BMI result Body Mass Index 36.5 Tobacco/Smoking Status: Tobacco use Status Tobacco use date assessed 12/07/23 08/04/24 08:28 Patient Tobacco Use Status Never used Tobacco 08/04/24 08:28 e-Cigarette/Vaping Use Never Used 08/04/24 08:28 Thrive Assessment: Date of Thrive Assessment Date Thrive assessed 03/10/24 08/04/24 08:28 Currently or been in a relationship where the following occur: No concerns reported Coding Level of Care Code Est Pt Level 4 (88304) Complex EM visit Add On G2211 Diagnoses LFT elevation R79.89 Prediabetes R73.03 Hypertension, essential I10 CKD (chronic kidney disease) stage 2, GFR 60-89 ml/min N18.2 Class 2 obesity due to excess calories without serious comorbidity with body mass index (BMI) of 38.0 to 38.9 in adult E66.09; Z68.38 Obesity classification: adult class 2 (BMI 35 - 39.9) Serious obesity comorbidity presence: without serious comorbidity Body mass index: BMI 38.0-38.9 Bipolar disorder, in full remission, most recent episode mixed F31.78 Active/Remission status: in full remission Most recent bipolar episode type: mixed Assessment & Plan Assessment & Plan (1) LFT elevation: Code(s): R79.89 - Other specified abnormal findings of blood chemistry Category: Medical (2) Prediabetes: Code(s): R73.03 - Prediabetes Category: Medical (3) Hypertension, essential: Code(s): I10 - Essential (primary) hypertension Category: Medical (4) CKD (chronic kidney disease) stage 2, GFR 60-89 ml/min: Code(s): N18.2 - Chronic kidney disease, stage 2 (mild) Category: Medical (5) Obesity due to excess calories: Comment: If your BMI is between 25 and 29.9, you are overweight. If your BMI is 30 or greater, you are obese. ___ Being obese is a problem, because it increases the risks of many different health problems. It can also make it hard for you to move, breathe, and do other things that people who are at a healthy weight can do easily. Plus, being obese can be hard emotionally. ___ What are the health risks of being obese? Being obese increases a persons risk of developing many health problems. Here are just a few examples: __ Diabetes High blood pressure, High cholesterol, Heart disease (including heart attacks) Stroke, Sleep apnea (a disorder in which you stop breathing for short periods while asleep) Asthma, Cancer __ Does being obese shorten a persons life? Yes. Studies show that people who are obese younger than people who are a healthy weight. They also show that the risk of goes up the heavier a person is. The degree of increased risk depends on how long the person has been obese, and on what other medical problems he or she has. , Reduce your carbohydrate intake and choose carbs that are complex. Remember as a general rule of thumb, avoid highly processed foods. If it's white and soft, it's probably been stripped of its nutritional value. Change white bread to whole wheat bread, white rice to brown rice, white potatoes to sweet potatoes, white pasta to whole wheat pasta. Monitor portion sizes too: protein should be no bigger than your fist. Limit your red meat intake to only once or twice a wk. Eat more white meat but make sure to avoid creamy sauces etc. Broiling, baking or grilling is best. Increase dark, green leafy vegetables and fruits. Code(s): E66.09 - Other obesity due to excess calories Category: Medical Qualifiers: Obesity classification: adult class 2 (BMI 35 - 39.9) Serious obesity comorbidity presence: without serious comorbidity Body mass index: BMI 38.0-38.9 Qualified Code(s): E66.09 - Other obesity due to excess calories; Z68.38 - Body mass index [BMI] 38.0-38.9, adult (6) Bipolar disorder: Code(s): F31.9 - Bipolar disorder, unspecified Category: Medical Qualifiers: Active/Remission status: in full remission Most recent bipolar episode type: mixed Qualified Code(s): F31.78 - Bipolar disorder, in full remission, most recent episode mixed Plan History - The patient is a 69-year-old female presenting for a follow-up visit. - She has been managing her Essential Hypertension with metoprolol since prior to March of this year. - The patient's previous liver enzyme tests were elevated, need repeat labs - The patient carries a risk for the development of Diabetes Mellitus Type 2, given her family history, as her mother had diabetes. Patient is prediabetic last hemoglobin A1c was 6.2 - She has made lifestyle changes, including weight loss through increased physical activity such as walking and dietary adjustments focused on healthy eating, both of which have positively impacted her liver enzyme levels and overall health. Medical History: - Essential Hypertension - Elevated Liver Enzymes - Risk factor: Family history of Diabetes Mellitus Type 2 - obesity Medications: - Metoprolol: Prescribed for the management of Essential Hypertension. Social History: - Resides in [place]. - Engages in regular walking for exercise. - Focuses on a healthy diet for weight management. - Reports successful weight loss as part of her lifestyle changes. Family History: - Family history of Diabetes Mellitus Type 2 (Mother). Diagnostic Results: - Labs: Elevated liver enzymes noted in previous evaluations. - Tests and diagnostics scheduled: Blood tests upcoming in August to monitor kidney function, liver enzymes, and blood glucose levels. Problem List - Essential Hypertension - Elevated Liver Enzymes - Risk of Diabetes Mellitus Type 2 - obesity - psychiatric illness stable Patient Instructions - Continue taking metoprolol as prescribed for blood pressure management. - Maintain current exercise regimen and healthy diet to aid in weight management and liver health. - Avoid excessive use of Tylenol; only use as needed due to kidney concerns. - Schedule and complete the blood tests before the upcoming visit, particularly to monitor liver enzymes and blood glucose levels. - Return for follow-up on November 22 for a physical exam. - Monitor blood pressure at home and report any significant changes. Orders: Orders Hemoglobin A1c Today - Bipolar disorder, in full remission, most recent episode mixed, N18.2 - Chronic kidney disease, stage 2 (mild), R73.03 - Prediabetes, R79.89 - Other specified abnormal findings of blood chemistry Microalbumin, Random (w Creat) Today - Bipolar disorder, in full remission, most recent episode mixed, N18.2 - Chronic kidney disease, stage 2 (mild), R73.03 - Prediabetes, R79.89 - Other specified abnormal findings of blood chemistry Complete Blood Count Auto Diff Today - Bipolar disorder, in full remission, most recent episode mixed, N18.2 - Chronic kidney disease, stage 2 (mild), R73.03 - Prediabetes, R79.89 - Other specified abnormal findings of blood chemistry Comprehensive Met. Panel Today - Bipolar disorder, in full remission, most recent episode mixed, N18.2 - Chronic kidney disease, stage 2 (mild), R73.03 - Prediabetes, R79.89 - Other specified abnormal findings of blood chemistry LDL Cholesterol Direct Today - Bipolar disorder, in full remission, most recent episode mixed, N18.2 - Chronic kidney disease, stage 2 (mild), R73.03 - Prediabetes, R79.89 - Other specified abnormal findings of blood chemistry
--- OUTSIDE RECORDS SUMMARY | 2024-08-04 08:23 | XMS_ITS | Clinical Summary ---
Author Organization [facility] Address [address] [place] [address] Care Team Providers Care Occupational Health Coordinator Name Role Phone Renee Barajas MD Primary Care Prov ider Allergies No known active allergies Medications Medication Sig Dispensed Refills Start Date End Date Status omeprazole (PriLOSEC) 20 MG capsule TK 1 C PO D 1 11/29/2018 Active Active Problems Problem Noted Date Diagnosed Date Menopause syndrome 10/10/2018 Left arm weakness 08/04/2018 Thyroid nodule 02/26/2015 Chronic headaches 04/27/2011 Family History Medical History Relation Name Comments Diabetes Mother Hypertension Mother Relation Name Status Comments Mother Social History Tobacco Use Types Packs/Day Years Used Date Smoking Tobacco: Never Smokeless Tobacco: Never Alcohol Use Standard Drinks/Week Comments No 0 (1 standard drink = 0.6 oz pur e alcohol) Sex and Gender Information Value Date Recorded Sex Assigned at Not on file Gender Identity Not on file Sexual Orientation Not on file Last Filed Vital Signs Vital Sign Reading Time Taken Comments Blood Pressure - - Pulse - - Temperature - - Respiratory Rate - - Oxygen Saturation - - Inhaled Oxygen Concentration - - Weight 90.3 kg (199 lb) 12/12/2018 9:09 AM EDT Height 165.1 cm (5' 5 ) 12/12/2018 9:09 AM EDT Body Mass Index 33.12 12/12/2018 9:09 AM EDT Plan of Treatment Health Maintenance Due Date Last Done Comments Hepatitis C Screening 1955 COVID-19 Vaccine (#1) 1957 Depression Screening 1969 BMI Counseling 05/23/1975 Preventative Health Evaluation 05/23/1975 Colon Cancer Screening (Colonoscopy) 2002 Breast Cancer Screening (Mammogram) 05/23/2007 Shingrix-Zoster Vaccine (1 of 2) 05/23/2007 Fall Risk Assessment 2022 Osteoporosis Screening (DEXA Scan) 2022 Pneumococcal Vaccine (1 of 1 - PCV) 2022 DTap / Tdap / Td (2 - Td or Tdap) 02/01/2024 014 Influenza Vaccine (Season Ended) 2024 RSV Adult > 60+ Yrs or Pregn ant (1 - 1-dose 75+ series) 2032 Hepatitis B Vaccines Aged Out No long er eligible based on patient's age to complete this topic RSV Ped < 20 months Aged Out No longe r eligible based on patient's age to complete this topic Care Teams Occupational Health Coordinator Relationship Specialty Start Date End Date Renee Barajas MD PCP - General Internal Medicine 08/24/18
[2024-08-04 08:24] VITALS: BP 122/90; PULSE 65; RESP 18; TEMP 36.7; O2SAT 97; BMI 36.5
== END 2024-08-04 09:42 | disposition home or self-care (01) ==
LOC: HO.HMCC 08:18
PROVIDERS: PCP Internal Medicine; Visit Provider Internal Medicine
DX: R79.89 Other specified abnormal findings of blood chemistry (principal); R73.03 Prediabetes; I12.9 Hypertensive chronic kidney disease with stage 1 through stage 4 chronic kidney disease, or unspecified chronic kidney disease; N18.2 Chronic kidney disease, stage 2 (mild); E66.09 Other obesity due to excess calories; Z68.38 Body mass index [BMI] 38.0-38.9, adult; F31.78 Bipolar disorder, in full remission, most recent episode mixed

== ENCOUNTER 2024-09-14 08:57 | Outpatient (AMB) | payer OTHER, SELFPAY ==
--- OUTSIDE RECORDS SUMMARY | 2024-09-14 09:16 | XMS_ITS | Clinical Summary ---
Author Organization [facility] Address [address] [place] [address] Care Team Providers Care Life Advisor Name Role Phone Renee Barajas MD Primary [...] Td or Tdap) 02/01/2024 014 Influenza Vaccine (#1) 2024 RSV Adult > 60+ Yrs or Pregn ant (1 - 1-dose 75+ series) 2032 Hepatitis B Vaccines Aged Out No long er eligible based on patient's age to complete this topic RSV Ped < 20 months Aged Out No longe r eligible based on patient's age to complete this topic Care Teams Life Advisor Relationship Specialty Start Date End Date Renee Barajas MD PCP - General Internal Medicine 08/24/18
--- OUTSIDE RECORDS SUMMARY | 2024-09-14 09:16 | XMS_ITS | Clinical Summary ---
Author Organization [facility] Address [address] [place] [address] Care Team Providers Care Entomology Teacher Name Role Phone Renee Barajas MD Primary Care Prov ider Allergies Active Allergy Reactions Criticality Noted Date Comments Citalopram 03/02/2011 Makes head and ears burn Ibuprofen 03/02/2011 Head and ears burn Loratadine 03/02/2011 Makes her head and ears burn Medications amLODIPine (NORVASC) 5 mg tablet Take 0.5 tablets (2.5 mg total) by mouth 1 (one) time each day. Active lithium 300 mg tablet Take 1 tablet (300 mg total) by mouth 1 (one) time each day. Active lithium 600 mg capsule Take 1 capsule (600 mg total) by mouth at bedtime. Active pantoprazole (PROTONIX) 40 mg EC tablet Take 1 tablet (40 mg total) by mouth 1 (one) time each day. Active paliperidone palmitate (Invega Sustenna) 156 mg/mL syringe Inject 1 mL (156 mg total) into the shoulder, thigh, or buttocks every 28 (twenty-eight ) days. 03/03/2019 Active polyethylene glycol (Miralax) 17 gram/dose oral powder Take 17 g by mouth 1 (one) time each day. 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 Due for repeat lung CT 02/16 for pneumonia f/u Hiatal hernia 01/05/2019 Overview (03/29/2024): Endoscopy 01/17 Chronic cholecystitis with calculus 12/27/2018 Menopause syndrome 10/10/2018 Left arm weakness 08/04/2018 Thyroid nodule 02/26/2015 Chronic headaches 04/27/2011 Immunizations Name Administration Dates Next Due Influenza Quadravalent, MDCK , 0.5ml, preservative free (Flucelvax) 6mo and older 11/10/2018 Tdap Tetanus diptheria acell ular pertussis (Boostrix; Adacel) 7yo and older 01/31/2014 Surgical History Surgery Date Site/Laterality Comments OTHER SURGICAL HISTORY PROCEDURE: MN TOTAL ABDOMINAL HYSTERECT W/WO RMVL TUBE OVARY OTHER SURGICAL HISTORY 07/15/2017 PROCEDURE: COLONOSCOPY LESION REMOVAL; COMMENT: PLAN: Await histology. If adenoma repeat in 5 years COLONOSCOPY 07/15/2017 PROCEDURE: HISTORICAL COLONOSCOPY; COMMENT: tics and small polypoid structures without adenomatous change; repeat in 10 yrs OTHER SURGICAL HISTORY 12/26/2017 Right PROCEDURE: MN COLECTOMY PARTIAL W/ANASTOMOSIS; COMMENT: laproscopy with lysis adhension Medical History Medical History Date Comments Menopause syndrome DX:Menopause syndrome Gastric ulcer DX:Gastric ulcer HTN (hypertension) 03/03/2019 DX:HTN (hyper tension) Family History Medical History Relation Name Comments Glaucoma Mother Hypertension Mother Glaucoma Sister Hypertension Sister Blindness Neg Hx Breast cancer Neg Hx Cataracts Neg Hx Macular degeneration Neg Hx Strabismus Neg Hx Relation Name Status Comments Father Mother Sister Social History Tobacco Use Types Packs/Day Years Used Date Smoking Tobacco: Never Smokeless Tobacco: Never Alcohol Use Standard Drinks/Week Comments No 0 (1 standard drink = 0.6 oz pur e alcohol) Comments Unknown Sex and Gender Information Value Date Recorded Sex Assigned at Not on file Legal Sex Female 6:08 AM EST Gender Identity Not on file Sexual Orientation Not on file Obstetrics History Plan of Treatment Health Maintenance Due Date Last Done Comments Breast Cancer Screening 1955 Pneumococcal Vaccine: 50+ Ye ars (1 of 1 - PCV) 05/23/2007 Zoster Vaccines (1 of 2) 05/23/2007 COVID-19 Vaccine (1 - 2023-2 5 season) 2023 DTaP,Tdap,and Td Vaccines (2 - Td or Tdap) 02/01/2024 01/31/2014 Cholesterol Screening (Lipid Panel) 03/30/2024 03/31/2017 Colorectal Cancer Screening: Stool Based Tests (FOBT/FIT) 03/30/2024 Depression Screening 03/30/2024 Falls Risk Assessment 03/30/2024 Hypertension/CHF/CAD Annual BMP Blood Test 03/30/2024 03/03/2019 Osteoporosis Screening (Bone Density Screening) 03/30/2024 Social Influencers of Health Screening 03/30/2024 Influenza Vaccine (#1) 2024 11/10/2018 RSV Immunization Adult Patie nts (1 - 1-dose 75+ series) 2032 Colorectal Cancer Screening: Colonoscopy Discontinued 07/15/2017 Hepatitis C Screening Completed 11/25/2017 HIB Vaccines Aged Out No longer eligi ble based on patient's age to complete this topic HPV Vaccines Aged Out No longer eligi ble based on patient's age to complete this topic Hepatitis A Vaccines Aged Out No long er eligible based on patient's age to complete this topic Hepatitis B Vaccines Aged Out No long er eligible based on patient's age to complete this topic IPV Vaccines Aged Out No longer eligi ble based on patient's age to complete this topic MMR Vaccines Aged Out No longer eligi ble based on patient's age to complete this topic Meningococcal ACWY Vaccine Aged Out N o longer eligible based on patient's age to complete this topic Meningococcal B Vaccine Aged Out No l onger eligible based on patient's age to complete this topic RSV Immunization Patients Un kiley 20 months Aged Out No longer eligible b ased on patient's age to complete this topic Varicella Vaccines Aged Out No longer eligible based on patient's age to complete this topic Procedures Procedure Name Priority Date/Time Associated Diagnosis Comments ANNUAL BMP BLOOD TEST Routine 03/03/2019 HEPATITIS C SCREENING Routine 11/25/2017 COLONOSCOPY Routine 07/15/2017 LIPID PANEL Routine 03/31/2017 from Last 3 Months or Most Recently Relevant to Health Maintenance Results * Annual BMP Blood Test (03/03/2019) Pathologist [facility] Annual BMP Blood Test abstracted [facility] Provider HEALTH MAINTENANCE Final Result * Hepatitis C Screening (11/25/2017) Pathologist [facility] Hepatitis C Screening abstracted [facility] Provider HEALTH MAINTENANCE Final Result * Colonoscopy (07/15/2017) Pathologist [facility] Colonoscopy no interpretation , abstracted Anatomical Region Laterality Modality Other [facility] Provider HEALTH MAINTENANCE Final Result * (ABNORMAL) Lipid panel (03/31/2017) [facility] LDL/HDL Ratio 4 0 - 4 Triglycerides 115 0 - 150 mg/dL Cholesterol 208(A) 0 - 200 mg/dL HDL 52 >=40 mg/dL LDL Cholesterol 133(A) 0 - 100 mg/dL Blood Venous blood specimen / Unknown [facility] Provider LAB BLOOD ORDERABLES Cyn l Result from Last 3 Months or Most Recently Relevant to Health Maintenance Care Teams Entomology Teacher Relationship Specialty Start Date End Date Renee Barajas MD PCP - General 09/24/10
--- NOTE | 2024-09-14 09:28 | HO.NEPHOV_ITS ---
Vital Signs 09/14/24 09:29 Height 5 ft 5 in Weight 215 lb 4 oz BMI 35.8 BP 132/80 Blood Pressure Location Lt brachial Position Sitting Pulse 75 Pulse Source Pulse Oximeter Pulse Oximetry (%) 94 Oxygen Delivery Method Room Air Intake Visit Reasons: Follow Up 3mo-Conf Manager Of Radiology Required: No Accompanied by: Self / Same As Patient Allergies citalopram Allergy (Unknown, Verified 09/14/24 09:29) Unknown ibuprofen Allergy (Unknown, Verified 09/14/24 09:29) unknown loratadine Allergy (Unknown, Verified 09/14/24 09:) unknown HPI Comments Details: I had the pleasure of seeing Gustavo who is a 68-year-old female with a history of bipolar disorder who is known to have hypertension for some time. She monitors her BP at home. She was on atenolol which was later changed to metoprolol/hctz. She is known to have hypercalcemia and has seen Dr Solis as well as Dr Rangel for hyperparathyroidism. She has H/O lithium in take in the past. Her blood pressure is better controlled but has not been taking HCTZ as she is worried about high blood calcium. She has no H/O renal calculus. She has no CAD, Carotid stenosis, CVA, PAD, JAIR or CHF. She denies taking excess NSAID's but not excess sodium in the diet. She feels her body weight has been stable. Her last serum creatinine is 0.75. She had parathyroid nodule was taken out in June and her serum calcium has normalized. [facility] Medical History Vitamin D deficiency Bipolar disorder Obesity Non-toxic multinodular goiter Hyperparathyroidism Surgical History History of colectomy Hx of cholecystectomy History of section History of hysterectomy Family History Mother HTN (hypertension) Diabetes mellitus Cancer Family/Other HTN (hypertension) Social History Household Members: Family Household Members Other:: daughter, son Housing: House Alcohol intake: never Patient Tobacco Use Status: Never used Tobacco e-Cigarette/Vaping Use: Never Used Second Hand Smoke Exposure: No service: No Current occupational status: disabled Cognitive needs: No Hearing needs: No Vision needs: Yes Review of Systems Const All systems reviewed & are unremarkable except as noted in HPI and below Physical Exam Vital Signs: Last Vital Signs Pulse 75 09/14/24 09:29 BP 132/80 09/14/24 09:29 Pulse Ox 94 09/14/24 09:29 Oxygen Delivery Method Room Air 09/14/24 09:29 BMI result Body Mass Index 35.8 Const General: comfortable and no acute distress Orientation/consciousness: patient oriented x3 HEENT Head: Yes normocephalic Mouth: Normal oral and palatal mucosa present Eyes EOM: EOMs intact bilaterally Neck Neck: Yes supple Resp Auscultation: clear to auscultation bilaterally Cardio Jugular venous distension: no JVD Rate: regular rate GI Palpation (GI): Soft to palpation Auscultation: normal bowel sounds General: Yes no CVA tenderness Back/Spine/Pelvis Back: no CVA tenderness Skin General skin exam: no rashes or lesions noted Neuro General: patient oriented x3 and moves all extremities Extrem General: Yes no pedal edema Results Reviewed Nephrology Results: Hgb, (12.0-16.0) 12.9 g/dl 08/04/24 WBC, (4.8-10.8) 6.6 X10*3/uL 08/04/24 Plt Count, (160-400) 266 X10*3/uL 08/04/24 Sodium, (135-145) 142 mmol/L 08/04/24 Potassium, (3.3-5.1) 3.8 mmol/L 08/04/24 Chloride, (96-108) 111 mmol/L H 08/04/24 Carbon Dioxide, (22-29) 25 mmol/L 08/04/24 BUN, (9-16) 11 mg/dL 08/04/24 Creatinine, (0.5-1.4) 0.75 mg/dL 08/04/24 Calcium, (8.4-10.2) 9.1 mg/dL Δ 08/04/24 Urine Creatinine 186.18 mg/dL 08/04/24 Renal US 07/30/21 Assessment & Plan Assessment & Plan (1) Hypertension, essential: Code(s): I10 - Essential (primary) hypertension Category: Medical Plan Ms Sherman has hypertension, hypercalcemia . Her CKD was thought to be from lithium use. Her high calcium has been high which has been thought to be due to primary hyperparathyroidism even though she has taken lithium . HCTZ is not an ideal medication for her hypertension control given hypercalcemia. So I stopped it at one of the visits and left her on metoprolol. I plan to image her kidney, Doppler of her renal arteries as well as do a 24 hour BP monitor, with time, if needed. She should maintain good hydration and avoid NSAID's. I did not make any medication changes today but discussed all these. Further management is pending evolving data Orders: Orders Protein Creatinine Ratio, Ur 8 Months I10 - Essential (primary) hypertension Creatinine 8 Months I10 - Essential (primary) hypertension Blood Urea Nitrogen 8 Months I10 - Essential (primary) hypertension Electrolytes 8 Months I10 - Essential (primary) hypertension Calcium 8 Months I10 - Essential (primary) hypertension Coding Level of Care Code Est Pt Level 4 (60697) Diagnoses Hypertension, essential I10
[2024-09-14 09:29] VITALS: BP 132/80; PULSE 75; O2SAT 94; BMI 35.8
== END 2024-09-14 09:41 | disposition home or self-care (01) ==
LOC: HO.HKAS 08:57
PROVIDERS: PCP Internal Medicine; Visit Provider Internal Medicine Nephrology
DX: I10 Essential (primary) hypertension (principal)
CPT/HCPCS: 99214

== ENCOUNTER → 2024-09-14 08:57 | Outpatient (BNVA) | payer OTHER, SELFPAY | PROVIDERS: PCP Internal Medicine; Visit Provider Internal Medicine Nephrology | DX: E83.52 Hypercalcemia (principal); I10 Essential (primary) hypertension; N18.2 Chronic kidney disease, stage 2 (mild) | CPT/HCPCS: 99212 ==

== ENCOUNTER 2024-11-22 09:39 | Outpatient (AMB) | payer OTHER, SELFPAY ==
[2024-11-22 09:42] VITALS: BP 130/82; PULSE 76; O2SAT 97; BMI 35.1
--- NOTE | 2024-11-22 09:42 | A.OFFPC_ITS ---
Vital Signs 11/22/24 09:42 Height 5 ft 5 in Weight 211 lb BMI 35.1 BP 130/82 Blood Pressure Location Lt brachial Position Sitting Pulse 76 Pulse Source Pulse Oximeter Pulse Oximetry (%) 97 Intake Visit Reasons: PE Allergies citalopram Allergy (Unknown, Verified 11/22/24 09:42) Unknown ibuprofen Allergy (Unknown, Verified 11/22/24 09:42) unknown loratadine Allergy (Unknown, Verified 11/22/24 09:42) unknown Medication List - Last Reconciled 11/22/24 by Jose Manuel Sarmiento MD [Blood pressure monitor large cuff] gabapentin 600 mg PO TID metoprolol succinate ER 50 mg PO DAILY Tobacco use date assessed: 11/22/24 Fall risk assessment: No Falls in past year Last assessed Fall Risk: 11/22/24 Dental Screening Dental Screen Date: 11/22/24 Did you have a dental visit in the last 12 months?: Yes Did you have a dental problem in the last 6 months where you did not have access to dental care?: No Was dental information given to patient?: Patient has dentist HPI PE HPI Details History of Present Illness The patient is a 69-year-old female presenting for a wellness examination and post-surgical follow-up. Chronic Kidney Disease Stage 2: - Diagnosed in conjunction with hyperten jody management. - Kidney function consistently stable wi th nephrology follow-up. Essential Hypertension: - Long-standing history. - Currently managed with metoprolol 50 m g daily as per nephrology care. Bipolar Disorder: - History of psychiatric illness, curren tly stable without medication. Hyperlipidemia: - Elevated LDL of 129 noted in recent te sting. Prediabetes: - Hemoglobin A1c recorded at 6.3 in rece nt testing. Post-surgical Status (Thoracic Surgery for Malignancy): - Underwent thoracic surgery following f indings of cancer in the right upper and middle lobes. - Previous PETCT showed no significant u ptake. Post-surgical Status (Parathyroidectomy): - Surgery completed for hyperparathyroid ism, with removal of one gland. - Follow-up with endocrinology discontin ued post-surgery. History of Lung Cancer: - Diagnosed following the detection of g round glass opacity increasing in size. first seen in 2019 Acid Reflux: - Experiencing chest pain if meals are d elayed, consistent with reflux symptoms. History of Total Hysterectomy: - Surgery performed secondary to heavy b leeding, no ongoing need for OBGYN follow-up. Medical History: - Chronic Kidney Disease Stage 2 - Essential Hypertension - Bipolar Disorder (stable off medicatio n) - Hyperlipidemia - Prediabetes - Obstructive Sleep Apnea Surgical History: - Total Hysterectomy due to heavy bleedi ng - Thoracic Surgery for removal of lung c ancer - Parathyroidectomy (removal of one glan d for hyperparathyroidism) Health Maintenance - Recent CBC performed with normal white count and hemoglobin. - Liver enzymes recorded as stable. - Colonoscopy conducted in October. - Mammogram last performed in January 30; upcoming in January this year. - Elevated LDL noted in recent bloodwork . - Recommendation for pneumonia vaccinati on given. - Discussion regarding obtaining a flu v accination from pharmacy due to dose requirement. [place] of Care - Pain management by currently taking ga bapentin. - Renal consultation with Dr. Pardeep Holguin i. - Previous endocrinology follow-up with Dr. Solis at [facility]. Diagnostic results - Labs: CBC performed with normal result s; Kidney functions stable; Hemoglobin A1c at 6.3; LDL at 129. - Tests: CT scan of chest in March showed ground glass opacity measuring 1.9 x 1.2 cm; PETCT in April 2024 demonstrated no FDG uptake. EKG done today showed no acute findings normal sinus rhythm Patient Instructions - Obtain the pneumonia vaccine today. - Get the flu vaccine from the pharmacy soon due to a stronger dose being required. - Maintain regular meal times to manage acid reflux. Start medication at night omeprazole 20 mg - Monitor for any new or worsening sympt oms such as chest pain. - labs to be done before next visit in s ix-month fasting order placed - try to lose weight Review of Systems - General: No fever no chills - Neurological: No headaches no dizzin ess - Ear nose throat: No sore throat no hearing difficulty no ear pain - Cardiovascular: No syncope, no palpitations - Gastrointestinal: No nausea vomiting or diarrhea - Endocrine: No polyuria polydipsia no heat intolerance - Genitourinary: No dysuria - Skin: No new complaints Physical Exam General: Cooperative, healthy appearing, comfortable, no acute distress Orientation: Patient oriented x3 Limitations: None Head: Normal to inspection Ears: Within normal limit visually Nose: Normal external nose present Face and sinus: Normal facial exam Eyes: Appearance normal, extraocular movement intact pupils reactive Neck: Normal visual inspection and supple Respiratory: Normal respiratory effort and able to speak in complete sentences. Clear to auscultation, no stridor Cardiovascular: S1 and S2 RRR, blood pressure 130/82 GI: Normal to inspection. Soft to palpation and nontender Skin: Turgor normal, no acute findings Neuro: Patient oriented x3, motor sensory intact, balance intact, tandem pass Extremities: Normal to inspection, range of motion intact Patient was informed and verbally consented to the use of an ambient scribe for clinic note documentation during this visit. [facility] Medical History Vitamin D deficiency Bipolar disorder Obesity Non-toxic multinodular goiter Hyperparathyroidism Surgical History History of colectomy Hx of cholecystectomy History of section History of hysterectomy Family History Mother HTN (hypertension) Diabetes mellitus Cancer Family/Other HTN (hypertension) Social History Household Members: Family Household Members Other:: daughter, son Housing: House Alcohol intake: never Patient Tobacco Use Status: Never used Tobacco e-Cigarette/Vaping Use: Never Used Second Hand Smoke Exposure: No service: No Current occupational status: disabled Cognitive needs: No Hearing needs: No Vision needs: Yes Questionnaire PHQ-9 Over the last 2 weeks, how often have you been bothered by any of the following problems? 1. Little interest or pleasure in doing things: not at all 2. Feeling down, depressed, or hopeless: not at all 3. Trouble falling or staying asleep, or sleeping too much: not at all 4. Feeling tired or having little energy: not at all 5. Poor appetite or overeating: not at all 6. Feeling bad about yourself - or that you are a failure or have let yourself or your family down: not at all 7. Trouble concentrating on things, such as reading the newspaper or watching television: not at all 8. Moving or speaking so slowly that other people could have noticed. Or the opposite - being so fidgety or restless that you have been moving around a lot more than usual: not at all 9. Thoughts that you would be better off or of hurting yourself in some way: not at all Total score: 0 Depression Screening Interpretation: Negative Depression Screening Done: Yes 13999 - PHQ-9 Billing: Yes Source: Developed by Drs. Bala Farah, Dawn Chavarria, Mihai Mendiola and colleagues, with an educational siomara from [employer]. Thrive Questionnaire Date Thrive assessed: 03/10/24 I am a: Patient What is your living situation today?: I have a steady place to live Within the past 12 months, did the food you bought not last and you didn't have the money to get more?: Sometimes True Within the past 12 months, did you worry whether your food would run out before you got money to buy more?: Never true Do you have trouble paying for medicines?: No Do you have trouble getting transportation to medical appointments?: No Do you have trouble paying your heating and electricity bill?: Yes Do you have trouble taking care of your child, family member or friend?: No Do you have trouble with day-to-day activities such as bathing, preparing meals, shopping, managing finances, etc.?: No Are you currently unemployed and looking for a job?: No Are you interested in more education?: No Please select the resources that you would like help with: Utilities Currently or been in a relationship where the following occur: No concerns reported THRIVE Score: 2 AUDIT C Alcohol Use Questionnaire (AUDIT-C) 1. How often do you have a drink containing alcohol?: Never 2. How many drinks containing alcohol do you have on a typical day when you are drinking?: 1 or 2 3. How often do you have six or more drinks on one occasion?: Never Total Score: 0 Score Reviewed/Action Taken: Yes GUY-7 AMB Questionnaire GUY-7 Date GUY - 7 assessed: 03/10/24 Feeling nervous, anxious, or on edge: 0 = Not at all Not being able to stop or control worryin = Not at all Worrying too much about different things: 0 = Not at all Trouble relaxin = Not at all Being so restless that it is hard to sit still: 0 = Not at all Becoming easily annoyed or irritable: 0 = Not at all Feeling afraid as if something awful might happen: 0 = Not at all Total GUY-7 score (0-4 normal; 5-9 mild; 10-14 moderate; 15-21 severe): 0 Source: Developed by Drs. Bala Farah, Dawn Chavarria, Mihai Mendiola and colleagues, with an educational siomara from [employer]. GUY-7 Assessment Billing GUY-7 Assessment Tool: GUY-7 Assessment 37090 Physical exam (Primary Care) Vital Signs: Last Vital Signs Pulse 76 11/22/24 09:42 BP 130/82 11/22/24 09:42 Pulse Ox 97 11/22/24 09:42 BMI result Body Mass Index 35.1 Tobacco/Smoking Status: Tobacco use Status Tobacco use date assessed 11/22/24 11/22/24 09:43 Patient Tobacco Use Status Never used Tobacco 11/22/24 09:43 e-Cigarette/Vaping Use Never Used 11/22/24 09:43 PHQ-9: PHQ-9 Score PHQ-9: Total score 0 11/22/24 09:43 Depression Screening Interpretation: Negative Thrive Assessment: Date of Thrive Assessment Date Thrive assessed 03/10/24 11/22/24 09:43 Currently or been in a relationship where the following occur: No concerns reported Office Procedures EKG 29157-[id number], Complete Coding Level of Care Code Est Pt Level 4 (17505) Est Pt Prev Care >65y(45217) Diagnoses Bipolar disorder, in full remission, most recent episode mixed F31.78 Active/Remission status: in full remission Most recent bipolar episode type: mixed Class 2 obesity due to excess calories without serious comorbidity with body mass index (BMI) of 38.0 to 38.9 in adult E66.09; Z68.38 Obesity classification: adult class 2 (BMI 35 - 39.9) Serious obesity comorbidity presence: without serious comorbidity Body mass index: BMI 38.0-38.9 Encounter for general adult medical examination with abnormal findings Z00.01 Gastroesophageal reflux disease without esophagitis K21.9 Esophagitis presence: without esophagitis Hypertension, essential I10 CKD (chronic kidney disease) stage 2, GFR 60-89 ml/min N18.2 LFT elevation R79.89 Prediabetes R73.03 Chest pain R07.9 CPT Codes EKG - CPT: 29464-[id number], Complete ([id number]) Additional Codes GUY-7 Assessment Billing - GUY-7 Assessment Tool: GUY-7 Assessment 29772 ([id number]) PHQ-9 - 10256 - PHQ-9 Billing: Yes ([id number]) Assessment & Plan Assessment & Plan (1) Bipolar disorder: Code(s): F31.9 - Bipolar disorder, unspecified Category: Medical Qualifiers: Active/Remission status: in full remission Most recent bipolar episode type: mixed Qualified Code(s): F31.78 - Bipolar disorder, in full remission, most recent episode mixed (2) Obesity due to excess calories: Comment: If your BMI is between 25 and 29.9, you are overweight. If your BMI is 30 or greater, you are obese. ___ Being obese is a problem, because it increases the risks of many different health problems. It can also make it hard for you to move, breathe, and do other things that people who are at a healthy weight can do easily. Plus, being obese can be hard emotionally. ___ What are the health risks of being obese? Being obese increases a persons risk of developing many health problems. Here are just a few examples: __ Diabetes High blood pressure, High cholesterol, Heart disease (including heart attacks) Stroke, Sleep apnea (a disorder in which you stop breathing for short periods while asleep) Asthma, Cancer __ Does being obese shorten a persons life? Yes. Studies show that people who are obese younger than people who are a healthy weight. They also show that the risk of goes up the heavier a person is. The degree of increased risk depends on how long the person has been obese, and on what other medical problems he or she has. , Reduce your carbohydrate intake and choose carbs that are complex. Remember as a general rule of thumb, avoid highly processed foods. If it's white and soft, it's probably been stripped of its nutritional value. Change white bread to whole wheat bread, white rice to brown rice, white potatoes to sweet potatoes, white pasta to whole wheat pasta. Monitor portion sizes too: protein should be no bigger than your fist. Limit yo ur red meat intake to only once or twice a wk. Eat more white meat but make sure to avoid creamy sauces etc. Broiling, baking or grilling is best. Increase dark, green leafy vegetables and fruits. Code(s): E66.09 - Other obesity due to excess calories Category: Medical Qualifiers: Obesity classification: adult class 2 (BMI 35 - 39.9) Serious obesity comorbidity presence: without serious comorbidity Body mass index: BMI 38.0- 38.9 Qualified Code(s): E66.09 - Other obesity due to excess calories; Z68.38 - Body mass index [BMI] 38.0-38.9, adult (3) Encounter for general adult medical examination with abnormal findings: Code(s): Z00.01 - Encounter for general adult medical examination with abnormal findings Category: Medical (4) Acid reflux: Code(s): K21.9 - Gastro-esophageal reflux disease without esophagitis Category: Medical Qualifiers: Esophagitis presence: without esophagitis Qualified Code(s): K21.9 - Gastro-esophageal reflux disease without esophagitis (5) Hypertension, essential: Code(s): I10 - Essential (primary) hypertension Category: Medical (6) CKD (chronic kidney disease) stage 2, GFR 60-89 ml/min: Code(s): N18.2 - Chronic kidney disease, stage 2 (mild) Category: Medical (7) LFT elevation: Code(s): R79.89 - Other specified abnormal findings of blood chemistry Category: Medical (8) Prediabetes: Code(s): R73.03 - Prediabetes Category: Medical (9) Chest pain: Code(s): R07.9 - Chest pain, unspecified Category: Medical Plan History of Present Illness The patient is a 69-year-old female presenting for a wellness examination and post-surgical follow-up. Chronic Kidney Disease Stage 2: - Diagnosed in conjunction with hypertension management. - Kidney function consistently stable with nephrology follow-up. Essential Hypertension: - Long-standing history. - Currently managed with metoprolol 50 mg daily as per nephrology care. Bipolar Disorder: - History of psychiatric illness, currently stable without medication. Hyperlipidemia: - Elevated LDL of 129 noted in recent testing. Prediabetes: - Hemoglobin A1c recorded at 6.3 in recent testing. Post-surgical Status (Thoracic Surgery for Malignancy): - Underwent thoracic surgery following findings of cancer in the right upper and middle lobes. - Previous PETCT showed no significant uptake. Post-surgical Status (Parathyroidectomy): - Surgery completed for hyperparathyroidism, with removal of one gland. - Follow-up with endocrinology discontinued post-surgery. History of Lung Cancer: - Diagnosed following the detection of ground glass opacity increasing in size. first seen in 2019 Acid Reflux: - Experiencing chest pain if meals are delayed, consistent with reflux symptoms. History of Total Hysterectomy: - Surgery performed secondary to heavy bleeding, no ongoing need for OBGYN follow-up. Medical History: - Chronic Kidney Disease Stage 2 - Essential Hypertension - Bipolar Disorder (stable off medication) - Hyperlipidemia - Prediabetes - Obstructive Sleep Apnea Surgical History: - Total Hysterectomy due to heavy bleeding - Thoracic Surgery for removal of lung cancer - Parathyroidectomy (removal of one gland for hyperparathyroidism) Health Maintenance - Recent CBC performed with normal white count and hemoglobin. - Liver enzymes recorded as stable. - Colonoscopy conducted in October 2022. - Mammogram last performed in January 2024; upcoming in January this year. - Elevated LDL noted in recent bloodwork. - Recommendation for pneumonia vaccination given. - Discussion regarding obtaining a flu vaccination from pharmacy due to dose requirement. [place] of Care - Pain management by currently taking gabapentin. - Renal consultation with Dr. Pardeep Alejandro. - Previous endocrinology follow-up with Dr. Solis at [facility]. Diagnostic results - Labs: CBC performed with normal results; Kidney functions stable; Hemoglobin A1c at 6.3; LDL at 129. - Tests: CT scan of chest in March 2024 showed ground glass opacity measuring 1.9 x 1.2 cm; PETCT in April 2024 demonstrated no FDG uptake. EKG done today showed no acute findings normal sinus rhythm Patient Instructions - Obtain the pneumonia vaccine today. - Get the flu vaccine from the pharmacy soon due to a stronger dose being required. - Maintain regular meal times to manage acid reflux. Start medication at night omeprazole 20 mg - Monitor for any new or worsening symptoms such as chest pain. - labs to be done before next visit in six-month fasting order placed - try to lose weight Orders: Orders Pneumococcal 20 Immunization Today Z23 - Encounter for immunization Comprehensive [place]. Panel Fast 5 Months E66.09 - Other obesity due to excess calories, F31.78 - Bipolar disorder, in full remission, most recent episode mixed, I10 - Essential (primary) hypertension, K21.9 - Gastro-esophageal reflux disease without esophagitis, N18.2 - Chronic kidney disease, stage 2 (mild), R07.9 - Chest pain, unspecified, R73.03 - Prediabetes, R79.89 - Other specified abnormal findings of blood chemistry, Z00.01 - Encounter for general adult medi jose examination with abnormal findings, Z68.38 - Body mass index [BMI] 38.0- 38.9, adult Hemoglobin A1c 5 Months E66.09 - Other obesity due to excess calories, F31.78 - Bipolar disorder, in full remission, most recent episode mixed, I10 - Essential (primary) hypertension, K21.9 - Gastro-esophageal reflux disease without esophagitis, N18.2 - Chronic kidney disease, stage 2 (mild), R07.9 - Chest pain, unspecified, R73.03 - Prediabetes, R79.89 - Other specified abnormal findings of blood chemistry, Z00.01 - Encounter for general adult medical examination with abnormal findings, Z68.38 - Body mass index [BMI] 38.0-38.9, adult Lipid Panel 5 Months E66.09 - Other obesity due to excess calories, F31.78 - Bipolar disorder, in full remission, most recent episode mixed, I10 - Essential (primary) hypertension, K21.9 - Gastro-esophageal reflux disease without esophagitis, N18.2 - Chronic kidney disease, stage 2 (mild), R07.9 - Chest pain, unspecified, R73.03 - Prediabetes, R79.89 - Other specified abnormal findings of blood chemistry, Z00.01 - Encounter for general adult medical examination with abnormal findings, Z68.38 - Body mass index [BMI] 38.0-38.9, adult Vitamin D 25-OH (D2 and D3) 5 Months E66.09 - Other obesity due to excess calories, F31.78 - Bipolar disorder, in full remission, most recent episode mi xed, I10 - Essential (primary) hypertension, K21.9 - Gastro-esophageal reflux disease without esophagitis, N18.2 - Chronic kidney disease, stage 2 (mild), R07.9 - Chest pain, unspecified, R73.03 - Prediabetes, R79.89 - Other specified abnormal findings of blood chemistry, Z00.01 - Encounter for general adult medical examination with abnormal findings, Z68.38 - Body mass index [BMI] 38.0- 38.9, adult TSH reflex Free T4 5 Months E66.09 - Other obesity due to excess calories, F31.78 - Bipolar disorder, in full remission, most recent episode mixed, I10 - Essential (primary) hypertension, K21.9 - Gastro-esophageal reflux disease without esophagitis, N18.2 - Chronic kidney disease, stage 2 (mild), R07.9 - Chest pain, unspecified, R73.03 - Prediabetes, R79.89 - Other specified abnormal findings of blood chemistry, Z00.01 - Encounter for general adult medical examination with abnormal findings, Z68.38 - Body mass index [BMI] 38.0-38.9, adult Complete Blood Count Auto Diff 5 Months E66.09 - Other obesity due to excess calories, F31.78 - Bipolar disorder, in full remission, most recent episode mixed, I10 - Essential (primary) hypertension, K21.9 - Gastro-esophageal reflux disease without esophagitis, N18.2 - Chronic kidney disease, stage 2 (mild), R07.9 - Chest pain, unspecified, R73.03 - Prediabetes, R79.89 - Other specified abnormal findings of blood chemistry, Z00.01 - Encounter for general adult medical examination with abnormal findings, Z68.38 - Body mass index [BMI] 38.0- 38.9, adult Medications: New pneumoc 20-caleb conj-dip cr(PF) 0.5 mL IM ONCE 0.5 mL 0RF Z23 - Encounter for immunization pantoprazole 40 mg PO DAILY 90 tabs 1RF
--- OUTSIDE RECORDS SUMMARY | 2024-11-22 11:44 | XMS_ITS | Clinical Summary ---
Author Organization [facility] ity Address [address] [place] [address] Care Team Providers Care Court Crier Name Role Phone Renee Barajas MD Primary [...] Overview (03/29/2024): Started on amlodipine 2,5mg at [facility]- 01/2019 Schizophrenia ([facility] V24, [facility] V28) 020 Lung nodules 01/23/2019 Overview (03/29/2024): [...] Date Site/Laterality Comments OTHER SURGICAL HISTORY PROCEDURE: IL TOTAL ABDOMINAL HYSTERECT W/WO RMVL TUBE OVARY OTHER SURGICAL HISTORY 07/15/2017 PROCEDURE: COLONOSCOPY LESION REMOVAL; COMMENT: PLAN: Await histology. If adenoma repeat in 5 years COLONOSCOPY 07/15/2017 PROCEDURE: HISTORICAL COLONOSCOPY; COMMENT: tics and small polypoid structures without adenomatous change; repeat in 10 yrs OTHER SURGICAL HISTORY 12/26/2017 Right PROCEDURE: IL COLECTOMY PARTIAL W/ANASTOMOSIS; COMMENT: laproscopy with lysis [...] 05/23/2007 Zoster Vaccines (1 of 2) 05/23/2007 DTaP,Tdap,and Td Vaccines (2 - Td or Tdap) 02/01/2024 01/31/2014 Depression Screening 03/01/2024 Cholesterol Screening (Lipid Panel) 03/30/2024 03/31/2017 Colorectal Cancer Screening: Stool Based Tests (FOBT/FIT) 03/30/2024 Falls Risk Assessment 03/30/2024 Hypertension/CHF/CAD Annual BMP Blood Test 03/30/2024 03/03/2019 Osteoporosis Screening (Bone Density Screening) 03/30/2024 Social Influencers of Health Screening 03/30/2024 COVID-19 Vaccine (1 - 2023-2 5 season) 2024 Influenza Vaccine (#1) 2024 11/10/2018 RSV Immunization [...] complete this topic RSV Immunization Patients Un kilye 20 months Aged Out No longer eligible [...] * Annual BMP Blood Test (03/03/2019) Pathologist [facility] Annual BMP Blood Test abstracted [facility] Provider HEALTH MAINTENANCE Final Result * Hepatitis C Screening (11/25/2017) Pathologist [facility] Hepatitis C Screening abstracted [facility] Provider HEALTH MAINTENANCE Final Result * Colonoscopy (07/15/2017) Pathologist [facility] Colonoscopy no interpretation , abstracted Anatomical Region Laterality Modality Other [facility] Provider HEALTH MAINTENANCE Final Result * (ABNORMAL) Lipid panel (03/31/2017) [facility] LDL/HDL Ratio 4 0 - 4 Triglycerides 115 0 - 150 mg/dL Cholesterol 208(A) 0 - 200 mg/dL HDL 52 >=40 mg/dL LDL Cholesterol 133(A) 0 - 100 mg/dL Blood Venous blood specimen / Unknown [facility] Provider LAB BLOOD ORDERABLES Cyn l Result from Last 3 Months or Most Recently Relevant to Health Maintenance Care Teams Court Crier Relationship Specialty Start Date End Date Renee Barajas MD PCP - General 09/24/10
--- OUTSIDE RECORDS SUMMARY | 2024-11-22 11:44 | XMS_ITS | Clinical Summary ---
Author Organization [facility] Address [address] [place] [address] Care Team Providers Care Queen Producer Name Role Phone Renee Barajas MD Primary [...] age to complete this topic Care Teams Queen Producer Relationship Specialty Start Date End Date Renee Barajas MD PCP - General Internal Medicine 08/24/18
== END 2024-11-22 10:35 | disposition home or self-care (01) ==
LOC: HO.HMCC 09:40
PROVIDERS: PCP Internal Medicine; Visit Provider Internal Medicine
DX: Z00.01 Encounter for general adult medical examination with abnormal findings (principal); I12.9 Hypertensive chronic kidney disease with stage 1 through stage 4 chronic kidney disease, or unspecified chronic kidney disease; Z68.38 Body mass index [BMI] 38.0-38.9, adult; N18.2 Chronic kidney disease, stage 2 (mild); R07.9 Chest pain, unspecified; K21.9 Gastro-esophageal reflux disease without esophagitis; E66.09 Other obesity due to excess calories; F31.78 Bipolar disorder, in full remission, most recent episode mixed; R79.89 Other specified abnormal findings of blood chemistry; R73.03 Prediabetes; Z23 Encounter for immunization

== ENCOUNTER → 2024-11-22 09:39 | Outpatient (BNVA) | payer OTHER, SELFPAY | PROVIDERS: PCP Internal Medicine; Visit Provider Internal Medicine | DX: Z00.01 Encounter for general adult medical examination with abnormal findings (principal); Z23 Encounter for immunization; F31.78 Bipolar disorder, in full remission, most recent episode mixed; E66.09 Other obesity due to excess calories; Z68.35 Body mass index [BMI] 35.0-35.9, adult; K21.9 Gastro-esophageal reflux disease without esophagitis; I12.9 Hypertensive chronic kidney disease with stage 1 through stage 4 chronic kidney disease, or unspecified chronic kidney disease; N18.2 Chronic kidney disease, stage 2 (mild); R79.89 Other specified abnormal findings of blood chemistry; R73.03 Prediabetes; R07.9 Chest pain, unspecified; Z79.899 Other long term (current) drug therapy | CPT/HCPCS: 90471; 90677; 93005; 96127; 99212; 99397 ==

== ENCOUNTER 2024-12-28 08:10 | Outpatient (AMB) | payer OTHER, SELFPAY ==
[2024-12-28 08:25] VITALS: BP 140/80; PULSE 95; O2SAT 98; BMI 35.1
--- NOTE | 2024-12-28 08:25 | MHC.OFFVIS ---
Vital Signs 12/28/24 08:25 Height 5 ft 5 in Weight 211 lb BMI 35.1 BP 140/80 H Blood Pressure Location Rt brachial Position Sitting Pulse 95 Pulse Source Pulse Oximeter Pulse Oximetry (%) 98 Oxygen Delivery Method Room Air Intake Visit Reasons: follow up Intake Note: Patient presents for 6 month follow up sleep Sales Program Coordinator Required: No Accompanied by: Self / Same As Patient Allergies citalopram Allergy (Unknown, Verified 12/28/24 08:29) Unknown ibuprofen Allergy (Unknown, Verified 12/28/24 08:29) unknown loratadine Allergy (Unknown, Verified 12/28/24 08:29) unknown HPI Comments Details: 69 y/o female patient presents for follow up of mild KEMAL. She reports that she recently underwent excision of a right lung cancerous mass. She states that she has been advised to undergo further treatment, however she is not going to pursue any radiation or chemotherapy. She states that after she underwent a thyroid nodule excision, she has optimized her diet, eating more vegetables, fruits, almonds (in hoping to add pecans), and smaller amounts carbohydrates. She is trying to avoid products that contain ingredients that are known to cause cancer, as this is the 2nd time she has had cancer. She has lost proximally 20 lb since her last sleep study. She returned her CPAP, as her insurance would not continue coverage as she was not meeting compliance requirements. However, she states she is no longer snoring, and is now experiencing better sleep and daytime energy. [facility] Medical History Vitamin D deficiency Bipolar disorder Obesity Non-toxic multinodular goiter Hyperparathyroidism Surgical History History of colectomy Hx of cholecystectomy History of section History of hysterectomy Family History Mother HTN (hypertension) Diabetes mellitus Cancer Family/Other HTN (hypertension) Social History Household Members: Family Household Members Other:: daughter, son Housing: House Alcohol intake: never Patient Tobacco Use Status: Never used Tobacco e-Cigarette/Vaping Use: Never Used Second Hand Smoke Exposure: No service: No Current occupational status: disabled Cognitive needs: No Hearing needs: No Vision needs: Yes Review of Systems Const All systems reviewed & are unremarkable except as noted in HPI and below Physical Exam Vital Signs: Last Vital Signs Pulse 95 12/28/24 08:25 BP 140/80 H 12/28/24 08:25 Pulse Ox 98 12/28/24 08:25 Oxygen Delivery Method Room Air 12/28/24 08:25 BMI result Body Mass Index 35.1 Const General: cooperative Nutritional Appearance: obese Orientation/consciousness: patient oriented x3 Resp Effort & Inspection: normal respiratory effort and able to speak in complete sentences Neuro General: patient oriented x3 and gait normal Cognition (Neuro): normal cognition Gait exam (Neuro): Normal gait present Psych Appearance: grossly normal Mental Status: mental status grossly normal Speech and movement: Normal speech and movement present Affect: normal affect Attitude: cooperative Assessment & Plan Assessment & Plan (1) KEMAL (obstructive sleep apnea): Comment: Mild degree of sleep apnea. The AHI was 9/hr and oxygen helen was 87%. Code(s): G47.33 - Obstructive sleep apnea (adult) (pediatric) Category: Medical Plan Continue to practice sleep hygiene. The patient has lost approximately 20 pounds since her previous home sleep study, which showed very mild KEMAL with an AHI of 8 per hour. Patient has returned her CPAP machine, as she did not tolerate it well. Discussed repeating the sleep study to confirm the status of sleep apnea; however, with shared decision-making, we decided that this is not necessary at this time, as she has experienced a resolution of her snoring and is now sleeping better, with improved daytime energy. Regarding her decision not to undergo follow-up right lung cancer treatment, I advised her to follow up with her treating oncologist. She may follow up here as needed. Medications: Discontinued metoprolol succinate ER Discontinued Reason: Patient no longer taking 50 mg PO DAILY 90 tabs 3RF Coding Level of Care Code Est Pt Level 3 (23303) Diagnoses KEMAL (obstructive sleep apnea) G47.33
== END 2024-12-28 09:15 | disposition home or self-care (01) ==
LOC: HO.HSMS 08:11
PROVIDERS: PCP Internal Medicine; Visit Provider Nurse Practitioner Family
DX: G47.33 Obstructive sleep apnea (adult) (pediatric) (principal)
CPT/HCPCS: 99213

== ENCOUNTER → 2024-12-28 08:10 | Outpatient (BNVA) | payer OTHER, SELFPAY | PROVIDERS: PCP Internal Medicine; Visit Provider Nurse Practitioner Family | DX: G47.33 Obstructive sleep apnea (adult) (pediatric) (principal) | CPT/HCPCS: 99212 ==

== ENCOUNTER 2025-01-09 09:51 | Outpatient (AMB) | payer OTHER, SELFPAY ==
--- NOTE | 2025-01-09 10:21 | HO.NEPHOV ---
Vital Signs 01/09/25 10:23 Height 5 ft 5 in Weight 212 lb 4 oz BMI 35.3 BP 152/96 H Blood Pressure Location Lt brachial Position Sitting Pulse 85 Pulse Source Pulse Oximeter Pulse Oximetry (%) 96 Oxygen Delivery Method Room Air Intake Visit Reasons: BP Meds?-Conf Simulation Specialist Required: No Accompanied by: Self / Same As Patient Allergies citalopram Allergy (Unknown, Verified 01/09/25 10:22) Unknown ibuprofen Allergy (Unknown, Verified 01/09/25 10:22) unknown loratadine Allergy (Unknown, Verified 01/09/25 10:22) unknown HPI Comments Details: I had the pleasure of seeing Gustavo who is a 68-year-old female with a history of bipolar disorder who is known to have hypertension for some time. She monitors her BP at home. She was on atenolol which was later changed to metoprolol/hctz. She is known to have hypercalcemia and has seen Dr Solis as well as Dr Rangel for hyperparathyroidism. She has H/O lithium in take in the past. Her blood pressure is better controlled but has not been taking HCTZ as she is worried about high blood calcium. She has no H/O renal calculus. She has no CAD, Carotid stenosis, CVA, PAD, JAIR or CHF. She denies taking excess NSAID's but not excess sodium in the diet. She feels her body weight has been stable. Her last serum creatinine is 0.75. She had parathyroid nodule was taken out in June and her serum calcium has normalized. [facility] Medical History Vitamin D deficiency Bipolar disorder Obesity Non-toxic multinodular goiter Hyperparathyroidism Surgical History History of colectomy Hx of cholecystectomy History of section History of hysterectomy Family History Mother HTN (hypertension) Diabetes mellitus Cancer Family/Other HTN (hypertension) Social History Household Members: Family Household Members Other:: daughter, son Housing: House Alcohol intake: never Patient Tobacco Use Status: Never used Tobacco e-Cigarette/Vaping Use: Never Used Second Hand Smoke Exposure: No service: No Current occupational status: disabled Cognitive needs: No Hearing needs: No Vision needs: Yes Review of Systems Const All systems reviewed & are unremarkable except as noted in HPI and below Physical Exam Vital Signs: Last Vital Signs Pulse 85 01/09/25 10:23 BP 152/96 H 01/09/25 10:23 Pulse Ox 96 01/09/25 10:23 Oxygen Delivery Method Room Air 01/09/25 10:23 BMI result Body Mass Index 35.3 Const General: comfortable and no acute distress Orientation/consciousness: patient oriented x3 HEENT Head: Yes normocephalic Mouth: Normal oral and palatal mucosa present Eyes EOM: EOMs intact bilaterally Neck Neck: Yes supple Resp Auscultation: clear to auscultation bilaterally Cardio Jugular venous distension: no JVD Rate: regular rate GI Palpation (GI): Soft to palpation Auscultation: normal bowel sounds General: Yes no CVA tenderness Back/Spine/Pelvis Back: no CVA tenderness Skin General skin exam: no rashes or lesions noted Neuro General: patient oriented x3 and moves all extremities Extrem General: Yes no pedal edema Results Reviewed Nephrology Results: Hgb, (12.0-16.0) 12.9 g/dl 08/04/24 WBC, (4.8-10.8) 6.6 X10*3/uL 08/04/24 Plt Count, (160-400) 266 X10*3/uL 08/04/24 Sodium, (135-145) 142 mmol/L 08/04/24 Potassium, (3.3-5.1) 3.8 mmol/L 08/04/24 Chloride, (96-108) 111 mmol/L H 08/04/24 Carbon Dioxide, (22-29) 25 mmol/L 08/04/24 BUN, (9-16) 11 mg/dL 08/04/24 Creatinine, (0.5-1.4) 0.75 mg/dL 08/04/24 Calcium, (8.4-10.2) 9.1 mg/dL Δ 08/04/24 Urine Creatinine 186.18 mg/dL 08/04/24 Renal US 07/30/21 Assessment & Plan Assessment & Plan (1) Hypertension, essential: Code(s): I10 - Essential (primary) hypertension Category: Medical Plan Ms Sherman has hypertension & H/O hypercalcemia . Her CKD was thought to be from lithium use. Her high calcium has been high which has been thought to be due to primary hyperparathyroidism even though she has taken lithium . HCTZ is not an ideal medication for her hypertension control given hypercalcemia. So I stopped it at one of the visits and left her on metoprolol which I increased to 75 mg daily. I plan to image her kidney, Doppler of her renal arteries as well as do a 24 hour BP monitor, with time, if needed. She should maintain good hydration and avoid NSAID's. Medications: Changed From metoprolol succinate ER 50 mg PO DAILY 30 tabs 0RF To metoprolol succinate ER 75 mg (1.5 x 50 mg) PO DAILY 45 tabs 3RF 30 days Coding Level of Care Code Est Pt Level 4 (19034) Diagnoses Hypertension, essential I10
[2025-01-09 10:23] VITALS: BP 152/96; PULSE 85; O2SAT 96; BMI 35.3
--- OUTSIDE RECORDS SUMMARY | 2025-01-09 11:08 | XMS_ITS | Clinical Summary ---
Author Organization [facility] ity Address [address] [place] [address] Care Team Providers Care Cooker Operator Name Role Phone Renee Barajas MD Primary [...] Overview (03/29/2024): Started on amlodipine 2,5mg at [facility]- 01/2019 Schizophrenia ([facility] V24, [facility] V28) 020 Lung nodules 01/23/2019 Overview (03/29/2024): Seen abd CT 01/17. Due for repeat lung CT 02/16 for pneumonia f/u Hiatal hernia 01/05/2019 Overview (03/29/2024): Endoscopy 01/17 Chronic cholecystitis with calculus 12/27/2018 Menopause syndrome 10/10/2018 Left arm weakness 08/04/2018 Thyroid nodule 02/26/2015 Chronic headaches 04/27/2011 Immunizations Immunization Administration Dates Next Due Influenza Quadravalent, MDCK , 0.5ml, preservative free (Flucelvax) 6mo and older 11/10/2018 Tdap Tetanus diptheria acell ular pertussis (Boostrix; Adacel) 7yo and older 01/31/2014 Surgical History Surgery Date Site/Laterality Comments OTHER SURGICAL HISTORY PROCEDURE: [place] TOTAL ABDOMINAL HYSTERECT W/WO RMVL TUBE OVARY OTHER SURGICAL HISTORY 07/15/2017 PROCEDURE: COLONOSCOPY LESION REMOVAL; COMMENT: PLAN: Await histology. If adenoma repeat in 5 years COLONOSCOPY 07/15/2017 PROCEDURE: HISTORICAL COLONOSCOPY; COMMENT: tics and small polypoid structures without adenomatous change; repeat in 10 yrs OTHER SURGICAL HISTORY 12/26/2017 Right PROCEDURE: [place] COLECTOMY PARTIAL W/ANASTOMOSIS; COMMENT: laproscopy with lysis [...] Health Screening 03/30/2024 COVID-19 Vaccine (1 - 2024-2 6 season) 2024 Influenza Vaccine (#1) 2024 11/10/2018 [...] * Annual BMP Blood Test (03/03/2019) Pathologist [facility] Annual BMP Blood Test abstracted [facility] Provider HEALTH MAINTENANCE Final Result * Hepatitis C Screening (11/25/2017) Pathologist [facility] Hepatitis C Screening abstracted [facility] Provider HEALTH MAINTENANCE Final Result * Colonoscopy (07/15/2017) Pathologist [facility] Colonoscopy no interpretation , abstracted Anatomical Region Laterality Modality Other [facility] Provider HEALTH MAINTENANCE Final Result * (ABNORMAL) Lipid panel (03/31/2017) [facility] LDL/HDL Ratio 4 0 - 4 Triglycerides 115 0 - 150 mg/dL Cholesterol 208(A) 0 - 200 mg/dL HDL 52 >=40 mg/dL LDL Cholesterol 133(A) 0 - 100 mg/dL Blood Venous blood specimen / Unknown [facility] Provider LAB BLOOD ORDERABLES Cyn l Result from Last 3 Months or Most Recently Relevant to Health Maintenance Care Teams Cooker Operator Relationship Specialty Start Date End Date Renee Barajas MD PCP - General 09/24/10
== END 2025-01-09 10:38 | disposition home or self-care (01) ==
LOC: HO.HKAS 09:52
PROVIDERS: PCP Internal Medicine; Visit Provider Internal Medicine Nephrology
DX: I10 Essential (primary) hypertension (principal)
CPT/HCPCS: 99214

== ENCOUNTER → 2025-01-09 09:51 | Outpatient (BNVA) | payer OTHER, SELFPAY | PROVIDERS: PCP Internal Medicine; Visit Provider Internal Medicine Nephrology | DX: I10 Essential (primary) hypertension (principal); N18.9 Chronic kidney disease, unspecified | CPT/HCPCS: 99212 ==

== ENCOUNTER 2025-02-06 10:08 | Outpatient (AMB) | payer OTHER, SELFPAY ==
--- NOTE | 2025-02-06 10:43 | HO.NEPHOV_ITS ---
Vital Signs 02/06/25 10:44 Height 5 ft 5 in Weight 213 lb 2 oz BMI 35.5 BP 144/72 H Blood Pressure Location Lt brachial Position Sitting Pulse 67 Pulse Source Pulse Oximeter Pulse Oximetry (%) 97 Oxygen Delivery Method Room Air Intake Visit Reasons: 1 [facility] Medical Office Receptionist Required: No Accompanied by: Self / Same As Patient Allergies citalopram Allergy (Unknown, Verified 02/06/25 10:43) Unknown ibuprofen Allergy (Unknown, Verified 02/06/25 10:43) unknown loratadine Allergy (Unknown, Verified 02/06/25 10:43) unknown HPI Comments Details: I had the pleasure of seeing Gustavo who is a 69-year-old female with a history of bipolar disorder who is known to have hypertension for some time. She monitors her BP at home. She was on atenolol which was later changed to metoprolol/hctz. She is known to have hypercalcemia and has seen Dr Solis as well as Dr Rangel for hyperparathyroidism. She has H/O lithium in take in the past. Her blood pressure is better controlled but has not been taking HCTZ as she is worried about high blood calcium. She has no H/O renal calculus. She has no CAD, Carotid stenosis, CVA, PAD, JAIR or CHF. She denies taking excess NSAID's but not excess sodium in the diet. She feels her body weight has been stable. Her last serum creatinine is 0.75. She had parathyroid nodule was taken out in June and her serum calcium has normalized. [facility] Medical History Vitamin D deficiency Bipolar disorder Obesity Non-toxic multinodular goiter Hyperparathyroidism Surgical History History of colectomy Hx of cholecystectomy History of section History of hysterectomy Family History Mother HTN (hypertension) Diabetes mellitus Cancer Family/Other HTN (hypertension) Social History Household Members: Family Household Members Other:: daughter, son Housing: House Alcohol intake: never Patient Tobacco Use Status: Never used Tobacco e-Cigarette/Vaping Use: Never Used Second Hand Smoke Exposure: No service: No Current occupational status: disabled Cognitive needs: No Hearing needs: No Vision needs: Yes Review of Systems Const All systems reviewed & are unremarkable except as noted in HPI and below Physical Exam Vital Signs: Last Vital Signs Pulse 67 02/06/25 10:44 BP 144/72 H 02/06/25 10:44 Pulse Ox 97 02/06/25 10:44 Oxygen Delivery Method Room Air 02/06/25 10:44 BMI result Body Mass Index 35.5 Const General: comfortable and no acute distress Orientation/consciousness: patient oriented x3 HEENT Head: Yes normocephalic Mouth: Normal oral and palatal mucosa present Eyes EOM: EOMs intact bilaterally Neck Neck: Yes supple Resp Auscultation: clear to auscultation bilaterally Cardio Jugular venous distension: no JVD Rate: regular rate GI Palpation (GI): Soft to palpation Auscultation: normal bowel sounds General: Yes no CVA tenderness Back/Spine/Pelvis Back: no CVA tenderness Skin General skin exam: no rashes or lesions noted Neuro General: patient oriented x3 and moves all extremities Extrem General: Yes no pedal edema Assessment & Plan Assessment & Plan (1) Hypertension, essential: Code(s): I10 - Essential (primary) hypertension Category: Medical Plan Ms Sherman has hypertension & H/O hypercalcemia . Her CKD was thought to be from lithium use. Her high calcium has been high which has been thought to be due to primary hyperparathyroidism even though she has taken lithium . HCTZ is not an ideal medication for her hypertension control given hypercalcemia. So I stopped it at one of the visits and left her on metoprolol which I increased to 75 mg daily. Its keeping her BP at goal. I plan to image her kidney, Doppler of her renal arteries as well as do a 24 hour BP monitor, with time, if needed. She should maintain good hydration and avoid NSAID's. Orders: Orders Calcium 6 Months I10 - Essential (primary) hypertension Blood Urea Nitrogen 6 Months I10 - Essential (primary) hypertension Electrolytes 6 Months I10 - Essential (primary) hypertension Creatinine 6 Months I10 - Essential (primary) hypertension Coding Level of Care Code Est Pt Level 4 (97656) Diagnoses Hypertension, essential I10
[2025-02-06 10:44] VITALS: BP 144/72; PULSE 67; O2SAT 97; BMI 35.5
== END 2025-02-06 12:12 | disposition home or self-care (01) ==
LOC: HO.HKAS 10:09
PROVIDERS: PCP Internal Medicine; Visit Provider Internal Medicine Nephrology
DX: I10 Essential (primary) hypertension (principal)
CPT/HCPCS: 99214

== ENCOUNTER → 2025-02-06 10:08 | Outpatient (BNVA) | payer OTHER, SELFPAY | PROVIDERS: PCP Internal Medicine; Visit Provider Internal Medicine Nephrology | DX: I12.9 Hypertensive chronic kidney disease with stage 1 through stage 4 chronic kidney disease, or unspecified chronic kidney disease (principal); N18.9 Chronic kidney disease, unspecified | CPT/HCPCS: 99212 ==

== ENCOUNTER → 2025-02-27 10:00 | Outpatient (BNV) | payer OTHER, SELFPAY | PROVIDERS: PCP Internal Medicine; Visit Provider Internal Medicine | DX: Z12.31 Encounter for screening mammogram for malignant neoplasm of breast (principal) | CPT/HCPCS: 77063; 77067 ==

== ENCOUNTER 2025-02-27 10:06 | Outpatient (REF) | payer OTHER, SELFPAY ==
--- NOTE | ~2025-02-27 | MM_ITS ---
EXAMINATION: MM SCREENING DIGITAL BREAST TOMOSYNTHESIS, BILATERAL CLINICAL INFORMATION: Screening. Asymptomatic. COMPARISON: Mammography: Comparison is made with available priors TECHNIQUE: Digital breast mammography with tomosynthesis is performed in both the craniocaudal and mediolateral oblique views along with computer-aided detection (CAD). FINDINGS: The breasts are heterogeneously dense, which may obscure small masses. There are no significant masses, abnormal calcifications, or other abnormalities. MM/MM tomosynthesis screening BI IMPRESSION: No mammographic evidence of malignancy. ASSESSMENT: BI-RADS Category 1: Negative RECOMMENDATION: Routine annual mammography screening. 1 year F/U This examination should not preclude the clinical evaluation of a suspicious palpable abnormality. This patient's information was entered into a reminder system with a target due date for their next mammogram. Electronically signed by: Wilma Steinberg DO 03/02/2025 09:37 AM [place]
--- OUTSIDE RECORDS SUMMARY | 2025-02-27 13:20 | XMS_ITS | Clinical Summary ---
Author Organization [facility] Prior to 07/29/24 Address [address] [place] [address] Care Team Providers Care Meat Washer Name Role Phone Renee Barajas MD Primary [...] age to complete this topic Care Teams Meat Washer Relationship Specialty Start Date End Date Renee Barajas MD PCP - General Internal Medicine 08/24/18
--- OUTSIDE RECORDS SUMMARY | 2025-02-27 13:20 | XMS_ITS | Clinical Summary ---
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 If adenoma repeat in 5 years COLONOSCOPY 07/15/2017 PROCEDURE: HISTORICAL COLONOSCOPY; COMMENT: tics and small polypoid structures without adenomatous change; repeat in 10 yrs OTHER SURGICAL HISTORY 12/26/2017 Right PROCEDURE: UT COLECTOMY PARTIAL W/ANASTOMOSIS; COMMENT: laproscopy with lysis [...] on file Sexual Orientation Not on file Plan of Treatment Health Maintenance Due Date [...] BMP Blood Test (03/03/2019) Pathologist [facility] Annual BMP Blood Test abstracted [facility] Provider HEALTH MAINTENANCE Final Result * Hepatitis C Screening (11/25/2017) Pathologist [facility] Hepatitis C Screening abstracted [facility] Provider HEALTH MAINTENANCE Final Result * Colonoscopy (07/15/2017) Pathologist [facility] Colonoscopy no interpretation , abstracted Anatomical Region Laterality Modality Other [facility] Provider [facility] Final Result * (ABNORMAL) Lipid panel (03/31/2017) [facility] LDL/HDL Ratio 4 0 - 4 Triglycerides 115 0 - 150 mg/dL Cholesterol 208(A) 0 - 200 mg/dL HDL 52 >=40 mg/dL LDL Cholesterol 133(A) 0 - 100 mg/dL Blood Venous blood specimen / Unknown [facility] Provider LAB BLOOD ORDERABLES Cyn l Result from Last 3 Months or Most Recently Relevant to Health Maintenance
[2025-02-27 14:09] LABS: Appearance Urine Cloudy; Glucose Urine UA Negative (Negative); PH 5.5 (5.0-9.0); Specific Gravity - Urine >= 1.030 (1.005-1.025)
== END 2025-02-27 10:07 | disposition home or self-care (01) ==
LOC: HO.MAMMO 10:06
PROVIDERS: PCP Internal Medicine; Visit Provider Internal Medicine
DX: R31.0 Gross hematuria (principal); N89.8 Other specified noninflammatory disorders of vagina
CPT/HCPCS: 77063; 77067; 81003; 99212

== ENCOUNTER 2025-02-27 11:11 | Outpatient (AMB) | payer OTHER, SELFPAY ==
[2025-02-27 11:34] VITALS: BP 128/80; PULSE 80; RESP 17; O2SAT 96; BMI 37.2
--- NOTE | 2025-02-27 11:34 | MHC.PC.OV ---
Vital Signs 02/27/25 11:34 Height 5 ft 3 in Weight 210 lb 3 oz BMI 37.2 BP 128/80 Blood Pressure Location Rt brachial Position Sitting Respiration 17 Pulse 80 Pulse Source Pulse Oximeter Pulse Oximetry (%) 96 Oxygen Delivery Method Room Air Intake Visit Reasons: Spotting on groin area Allergies citalopram Allergy (Unknown, Verified 02/27/25 11:36) Unknown ibuprofen Allergy (Unknown, Verified 02/27/25 11:36) unknown loratadine Allergy (Unknown, Verified 02/27/25 11:36) unknown Medication List - Last Reconciled 02/27/25 by Jose Manuel Sarmiento MD [Blood pressure monitor large cuff] cholecalciferol (vitamin D3) 25 mcg PO DAILY 90 days metoprolol succinate ER 75 mg (1.5 x 50 mg) PO DAILY 30 days [Sphygmomanometer use as directed] Tobacco use date assessed: 02/27/25 Fall risk assessment: No Falls in past year Last assessed Fall Risk: 02/27/25 Dental Screening Dental Screen Date: 02/27/25 Did you have a dental visit in the last 12 months?: Yes Did you have a dental problem in the last 6 months where you did not have access to dental care?: No Was dental information given to patient?: Patient has dentist HPI HPI Comments History of Present Illness Details History of Present Illness The patient is a 69 year old female presenting with a single episode of hematuria. Hematuria: - The patient reports a single episode of seeing a small amount of blood when wiping after urination last . - She has not experienced any further bleeding since this incident. - The patient denies burning on urination but did have some mild, transient back pain that has since resolved. - She denies a history of kidney stones. History of uterine fibroids: - The patient has a history of uterine fibroids, for which she underwent a total hysterectomy. [facility] Medical History Vitamin D deficiency Bipolar disorder Obesity Non-toxic multinodular goiter Hyperparathyroidism Surgical History History of colectomy Hx of cholecystectomy History of section History of hysterectomy Family History Mother HTN (hypertension) Diabetes mellitus Cancer Family/Other HTN (hypertension) Social History Household Members: Family Household Members Other:: daughter, son Housing: House Alcohol intake: never Patient Tobacco Use Status: Never used Tobacco e-Cigarette/Vaping Use: Never Used Second Hand Smoke Exposure: No service: No Current occupational status: disabled Cognitive needs: No Hearing needs: No Vision needs: Yes Questionnaire Thrive Questionnaire Date Thrive assessed: 03/10/24 I am a: Patient What is your living situation today?: I have a steady place to live Within the past 12 months, did the food you bought not last and you didn't have the money to get more?: Sometimes True Within the past 12 months, did you worry whether your food would run out before you got money to buy more?: Never true Do you have trouble paying for medicines?: No Do you have trouble getting transportation to medical appointments?: No Do you have trouble paying your heating and electricity bill?: Yes Do you have trouble taking care of your child, family member or friend?: No Do you have trouble with day-to-day activities such as bathing, preparing meals, shopping, managing finances, etc.?: No Are you currently unemployed and looking for a job?: No Are you interested in more education?: No Currently or been in a relationship where the following occur: No concerns reported THRIVE Score: 2 AUDIT C Alcohol Use Questionnaire (AUDIT-C) 1. How often do you have a drink containing alcohol?: Never 2. How many drinks containing alcohol do you have on a typical day when you are drinking?: 1 or 2 3. How often do you have six or more drinks on one occasion?: Never Total Score: 0 Score Reviewed/Action Taken: Yes GUY-7 AMB Questionnaire GUY-7 Date GUY - 7 assessed: 03/10/24 Source: Developed by Drs. Bala Farah, Dawn Chavarria, Mihai Mendiola and colleagues, with an educational siomara from [employer]. Review of Systems Narrative Review of Systems - General: No fever no chills - Neurological: No headaches no dizziness - Ear nose throat: No sore throat no hearing difficulty no ear pain - Cardiovascular: No syncope, no chest pain, no palpitations - Gastrointestinal: No nausea vomiting or diarrhea - Endocrine: No polyuria polydipsia no heat intolerance - Genitourinary: No dysuria , no blood in urine Physical exam (Primary Care) Vital Signs: Last Vital Signs Pulse 80 02/27/25 11:34 Resp 17 02/27/25 11:34 BP 128/80 02/27/25 11:34 Pulse Ox 96 02/27/25 11:34 Oxygen Delivery Method Room Air 02/27/25 11:34 BMI result Body Mass Index 37.2 Tobacco/Smoking Status: Tobacco use Status Tobacco use date assessed 02/27/25 02/27/25 11:36 Patient Tobacco Use Status Never used Tobacco 02/27/25 11:36 e-Cigarette/Vaping Use Never Used 02/27/25 11:36 Thrive Assessment: Date of Thrive Assessment Date Thrive assessed 03/10/24 02/27/25 11:36 Currently or been in a relationship where the following occur: No concerns reported Narrative Physical Exam - General: No acute distress - HEENT: No acute findings - Neck: Supple - Respiratory system: Able to talk in full sentences, no audible wheeze - Cardiovascular: S1-S2 regular in rate and rhythm - Gastrointestinal: No pain - gental exam revealed no lesions , no blood - Extremities: No new findings - DIRECTOR OF GROUP COUNSELING PROGRAM: Alert awake oriented x3 motor intact - Skin: Normal turgor Coding Level of Care Code Est Pt Level 3 (94552) Diagnoses Gross hematuria R31.0 Hematuria type: gross Vaginal discharge N89.8 Assessment & Plan Assessment & Plan (1) Blood in urine: Code(s): R31.9 - Hematuria, unspecified Category: Medical Qualifiers: Hematuria type: gross Qualified Code(s): R31.0 - Gross hematuria (2) Vaginal discharge: Code(s): N89.8 - Other specified noninflammatory disorders of vagina Category: Medical Plan Problem List - Hematuria Plan - A urine sample will be collected for analysis. - Vaginal cultures will be obtained. - The patient was advised to monitor for any recurrence of bleeding and to report it if it occurs. - An ultrasound will be ordered if hematuria recurs. Orders: Orders UA CC w/rflx Micro + Cult Today R31.9 - Hematuria, unspecified Bacterial Vaginosis Panel Today N89.8 - Other specified noninflammatory disorders of vagina
== END 2025-02-27 13:28 | disposition home or self-care (01) ==
LOC: HO.HMCC 11:12
PROVIDERS: PCP Internal Medicine; Visit Provider Internal Medicine
DX: R31.0 Gross hematuria (principal); N89.8 Other specified noninflammatory disorders of vagina

== ENCOUNTER 2025-02-27 12:29 | Outpatient (REF) | payer OTHER, SELFPAY ==
[2025-02-27 15:16] LABS: Bacterial Vaginosis PCR POSITIVE (Negative); Candida Group PCR NOT DETECTED (Not Detect); Candida glab krusei PCR NOT DETECTED (Not Detect); Trichomonas vaginalis PCR NOT DETECTED (Not Detect)
== END 2025-02-27 12:30 | disposition home or self-care (01) ==
LOC: HO.LAB 12:29
PROVIDERS: Visit Provider Internal Medicine
DX: N89.8 Other specified noninflammatory disorders of vagina (principal); Z20.2 Contact with and (suspected) exposure to infections with a predominantly sexual mode of transmission; Z12.31 Encounter for screening mammogram for malignant neoplasm of breast
CPT/HCPCS: 77063; 77067; 81003; 81515; 99212